=== PATIENT | male | born 1950 | race Caucasian/White ===

== ENCOUNTER → 2018-07-04 | Outpatient (CLI) | payer BC, OTHER ==
[~2018-07-04] MED LIST: ASPI-587 PO; MULT-1029 PO; OLME20TA21 PO; SIMV40TA4 PO
--- NOTE | 2018-07-04 09:35 | Diagnostic Imaging Report ---
EXAM: ABDOMEN COMPLETE ULTRASOUND. DATE: July 04, 2018. COMPARISON: None. INDICATION: 68-year-old male, right lower quadrant abdominal pain and tenderness. PROCEDURE: Two-dimensional ultrasound examination of the abdomen was performed. FINDINGS: LIVER: The liver is of normal size and echotexture without parenchymal distorting solid or cystic masses. BILE DUCTS AND GALLBLADDER: There is no pericholecystic fluid, gallbladder wall thickening or gallstones. The gallbladder wall measures 0.3 cm. The common bile duct measures 0.3 cm in diameter. SPLEEN: The spleen is normal. RIGHT KIDNEY: The right kidney is of normal size and contour with good corticomedullary differentiation. There are no shadowing calculi or cortical deforming solid or cystic masses. No hydronephrosis. The right kidney measures 11.3 cm x 4.5 cm x 5.0 cm. LEFT KIDNEY: The left kidney is of normal size and contour with good corticomedullary differentiation. There are no shadowing calculi or cortical deforming solid or cystic masses. No hydronephrosis. The left kidney measures 9.3 cm x 6.2 cm x 5.1 cm. PANCREAS: The pancreas is not well seen. The visualized portions of the aorta and inferior vena cava are not abnormally dilated. IMPRESSION: Unremarkable complete abdominal ultrasound. Dictated by: Dictated on workstation # [id number]
== END ==
LOC: RAD 07:45
PROVIDERS: ATTEND Nurse Practitioner
DX: R10.31 Right lower quadrant pain (principal); R10.819 Abdominal tenderness, unspecified site
CPT/HCPCS: 76700

== ENCOUNTER → 2018-07-28 | Outpatient (CLI) | payer OTHER ==
[~2018-07-28] MED LIST changes: +HOLD METFORMIN - RECEIVED CONTRAST 20 ML VIAL IV SCH
[2018-07-28] MEDS: IOHEXOL 350 MG/ML 100 ML (OMNIPAQUE 350) VIAL IV ONE (13:05)
--- NOTE | 2018-07-28 14:16 | Diagnostic Imaging Report ---
PROCEDURE: CT abdomen and pelvis with contrast. TECHNIQUE: Multiple contiguous axial images were obtained through the abdomen and pelvis after administration of intravenous contrast. Auto Exposure Controls were utilized during the CT exam to meet ALARA standards for radiation dose reduction. INDICATION: Lower abdominal pain. FINDINGS: The lung bases are clear. Liver appears normal. Gallbladder is present. Pancreas is normal. Spleen is not enlarged. Kidneys and adrenals are normal. There is calcific atherosclerosis of the aorta but no aneurysm. Appendix is normal. Small bowel is not dilated. There is diverticulosis of the sigmoid colon but no evidence of diverticulitis. Prostate is enlarged with some coarse calcifications. There is no intraperitoneal free air or free fluid. There is no lymphadenopathy. IMPRESSION: No acute abnormality is seen in the abdomen or pelvis. There is diverticulosis of the sigmoid colon but no evidence of diverticulitis. Dictated by: Dictated on workstation # [id number]
== END ==
LOC: RAD 12:36
PROVIDERS: ATTEND Internal Medicine
DX: K57.30 Diverticulosis of large intestine without perforation or abscess without bleeding (principal)
CPT/HCPCS: 74177

== ENCOUNTER 2018-12-03 11:29 | Emergency (ER) | payer OTHER ==
[~2018-12-03] VITALS: Ht 175.3 cm; Wt 84.8 kg
[~2018-12-03 11:29] MED LIST changes: -HOLD METFORMIN - RECEIVED CONTRAST 20 ML VIAL IV SCH
[2018-12-03] MEDS ORDERED: fentaNYL INJECTION 100 MCG/2 ML AMP IVP ONE (12:00)
[2018-12-03] MEDS ORDERED: ONDANSETRON 4 MG/2 ML (SDV) Z0FRAN IVP ONE (12:00)
--- NOTE | 2018-12-03 12:09 | ED General ---
General Chief Complaint: General Problems/Pain Stated Complaint: FEVER / ABD PAIN Nursing Triage Note: Patient reports eating some turkey yesterday and today having low grade temperature with diarrhea. Nursing Sepsis Screen: No Definite Risk Source of Information: Patient, Family Exam Limitations: No Limitations History of Present Illness Date Seen by Provider: Dec 03, 2018 Time Seen by Provider: 12:04 Initial Comments 68-year-old white male presents after eating food that had spoiled yesterday in the form of outdated turkey. Patient had cramping abdominal discomfort yesterday with associated diarrhea. The abdominal discomfort has continued throughout the night. There's been no further diarrhea nausea or vomiting. Patient has experienced a low-grade fever with this present illness. Allergies and Home Medications Allergies Uncoded Allergies: CODIENE (Allergy, Unknown, 09/23/14) SULFA (Allergy, Unknown, 09/23/14) Home Medications Aspirin 81 Mg Tablet.dr, 81 MG PO DAILY, (Reported) Benicar Hct 20 Mg Tablet, 1 EACH PO DAILY, (Reported) Mu-Vits-Min Th/Lycopene/Lutein 1 Each Tablet, 1 EACH PO DAILY, (Reported) Simvastatin 40 Mg Tablet, 40 MG PO DAILY, (Reported) Patient Home Medication List Home Medication List Reviewed: Yes Review of Systems Review of Systems Constitutional: No chills; fever, malaise, weakness EENTM: no symptoms reported Respiratory: No cough Cardiovascular: No chest pain Gastrointestinal: abdominal pain, diarrhea; No nausea, No vomiting Genitourinary: no symptoms reported Musculoskeletal: no symptoms reported Skin: no symptoms reported Psychiatric/Neurological: No Symptoms Reported Hematologic/Lymphatic: No Symptoms Reported Immunological/Allergic: no symptoms reported Past Zmhpcka-Hplrog-Curpau Hx Past Med/Social Hx: Reviewed Nursing Past Med/Soc Hx Patient Social History Alcohol Use: Occasionally Uses Recreational Drug Use: No Smoking Status: Never a Smoker Recent Foreign Travel: No Contact w/Someone Who Travel: No Recent Infectious Disease Expo: No Immunizations Up To Date Date of Influenza Vaccine: Jan 23, 2014 Past Medical History Surgeries: Yes Eye Surgery Respiratory: Yes (ASTHMA A CHILD; EASILY COPD) Cardiac: Yes High Cholesterol, Hypertension Neurological: No Genitourinary: No Gastrointestinal: No Musculoskeletal: No Endocrine: No HEENT: No Cancer: No Psychosocial: No Blood Disorders: No Physical Exam Vital Signs Vital Signs - First Documented 12/03/18 11:41 Temp 100.0 Pulse 78 Resp 18 B/P (MAP) 137/82 (100) Pulse Ox 95 Capillary Refill : Less Than 3 Seconds Height, Weight, BMI Height: 5'9.00" Weight: 187lbs. oz. 84.637386gb; BMI Method:Stated General Appearance: No Apparent Distress, WD/WN Eyes: Bilateral Eye Normal Inspection HEENT: Normal ENT Inspection Neck: Normal Inspection Respiratory: Lungs Clear Cardiovascular: Regular Rate, Rhythm, No Murmur Gastrointestinal: Normal Bowel Sounds; No Distended; Tenderness (patient has very slight diffuse abdominal tenderness but no rebound on exam) Back: Normal Inspection Extremity: Normal Inspection, Normal Range of Motion, Non Tender Neurologic/Psychiatric: Alert, Oriented x3, No Motor/Sensory Deficits, Normal Mood/Affect, valver II-XII Norm as Tested Skin: Normal Color, Warm/Dry Progress/Results/Core Measures Suspected Sepsis Recent Fever Within 48 Hours: No Infection Criteria Present: None New/Unexplained Altered Menta: No Sepsis Screen: No Definite Risk SIRS Temperature:100.0 Pulse: 78 Respiratory Rate: 18 Laboratory Tests 12/03/18 12:10: White Blood Count 7.2 Blood Pressure 137 /82 Mean: 100 Laboratory Tests 12/03/18 12:10: Creatinine 1.18, Platelet Count 190, Total Bilirubin 0.6 Results/Orders Lab Results Laboratory Tests Test 12/03/18 12:10 12/03/18 12:15 Range/Units White Blood Count 7.2 4.3-11.0 10^3/uL Red Blood Count 4.62 4.35-5.85 10^6/uL Hemoglobin 15.0 13.3-17.7 G/DL Hematocrit 44 40-54 % Mean Corpuscular Volume 96 80-99 FL Mean Corpuscular Hemoglobin 33 25-34 PG Mean Corpuscular Hemoglobin Concent 34 32-36 G/DL Red Cell Distribution Width 12.7 10.0-14.5 % Platelet Count 190 130-400 10^3/uL Mean Platelet Volume 10.1 7.4-10.4 FL Neutrophils (%) (Auto) 84 H 42-75 % Lymphocytes (%) (Auto) 7 L 12-44 % Monocytes (%) (Auto) 9 0-12 % Eosinophils (%) (Auto) 0 0-10 % Basophils (%) (Auto) 0 0-10 % Neutrophils # (Auto) 6.0 1.8-7.8 X 10^3 Lymphocytes # (Auto) 0.5 L 1.0-4.0 X 10^3 Monocytes # (Auto) 0.7 0.0-1.0 X 10^3 Eosinophils # (Auto) 0.0 0.0-0.3 10^3/uL Basophils # (Auto) 0.0 0.0-0.1 10^3/uL Sodium Level 137 135-145 MMOL/L Potassium Level 3.8 3.6-5.0 MMOL/L Chloride Level 104 98-107 MMOL/L Carbon Dioxide Level 24 21-32 MMOL/L Anion Gap 9 5-14 MMOL/L Blood Urea Nitrogen 18 7-18 MG/DL Creatinine 1.18 0.60-1.30 MG/DL Estimat Glomerular Filtration Rate > 60 BUN/Creatinine Ratio 15 Glucose Level 110 H 70-105 MG/DL Calcium Level 8.6 8.5-10.1 MG/DL Corrected Calcium 8.6 8.5-10.1 MG/DL Total Bilirubin 0.6 0.1-1.0 MG/DL Aspartate Amino Transf (AST/SGOT) 19 5-34 U/L Alanine Aminotransferase (ALT/SGPT) 29 0-55 U/L Alkaline Phosphatase 48 40-136 U/L Total Protein 6.5 6.4-8.2 GM/DL Albumin 4.0 3.2-4.5 GM/DL Lipase 15 8-78 U/L Urine Color YELLOW Urine Clarity CLEAR Urine pH 5 5-9 Urine Specific [place] 1.020 1.016-1.022 Urine Protein 1+ H NEGATIVE Urine Glucose (UA) NEGATIVE NEGATIVE Urine Ketones 1+ H NEGATIVE Urine Nitrite NEGATIVE NEGATIVE Urine Bilirubin NEGATIVE NEGATIVE Urine Urobilinogen NORMAL NORMAL MG/DL Urine Leukocyte Esterase 1+ H NEGATIVE Urine RBC (Auto) 2+ H NEGATIVE Urine RBC 2-5 H /HPF Urine WBC RARE /HPF Urine Squamous Epithelial Cells 2-5 /HPF Urine Crystals NONE /LPF Urine Bacteria TRACE /HPF Urine Casts NONE /LPF Urine Mucus SMALL H /LPF Urine Culture Indicated NO My Orders Orders - LIZBETH GONZALEZ MD Cbc With Automated Diff (12/03/18 11:56) Comprehensive Metabolic Panel (12/03/18 11:56) Ua Culture If Indicated (12/03/18 11:56) Lipase (12/03/18 11:56) Ns Iv 1000 Ml (Sodium Chloride 0.9%) (12/03/18 12:00) Ondansetron Injection (Zofran Injectio (12/03/18 12:00) Fentanyl Injection (Sublimaze Injection (12/03/18 12:00) Manual Differential (12/03/18 12:10) Medications Given in ED Current Medications Medications Dose Ordered Sig/Mohsen Route Start Time Stop Time Status Last Admin Dose Admin Fentanyl Citrate 50 mcg ONCE ONCE IVP 12/03/18 12:00 12/03/18 12:01 DC 12/03/18 12:18 50 MCG Ondansetron HCl 4 mg ONCE ONCE IVP 12/03/18 12:00 12/03/18 12:01 DC 12/03/18 12:18 4 MG Vital Signs/I&O 12/03/18 11:41 Temp 100.0 Pulse 78 Resp 18 B/P (MAP) 137/82 (100) Pulse Ox 95 Capillary Refill : Less Than 3 Seconds Blood Pressure Mean: 100 Progress Note : Time: 13:03 Progress Note Patient was rehydrated with 2 L of normal saline. His abdominal discomfort was improved with 50 g fentanyl. Patient's laboratory evaluation was essentially unremarkable. I discussed findings with the patient is white. Patient was discharged with instructions to remain on clear liquids throughout the rest of the day and tonight. I asked that he use his hydrocodone which she had at home for his abdominal discomfort. I gave the patient a prescription for Zofran for further nausea if he needed it. I asked that he follow-up with his primary care physician tomorrow if he was not essentially all recovered ECG Initial ECG Impression Date: Dec 03, 2018 Departure Impression Primary Impression: Food poisoning Qualified Codes: T62.91XA - Toxic effect of unspecified noxious substance eaten as food, accidental (unintentional), initial encounter Disposition: 01 HOME, SELF-CARE Condition: Improved Departure-Patient Inst. Decision time for Depature: 13:06 Referrals: CELINE KAPOOR MD (PCP/Family) Primary Care Physician Patient Instructions: Food Poisoning (DC) Add. Discharge Instructions: Clear liquids today and tonight. Follow Dr. Kapoor if not fully recover in the morning. Usually her hydrocodone at home for abdominal discomfort. Zofran for nausea. Return if any problems or questions. All discharge instructions revi ewed with patient and/or family. Voiced understanding. Scripts Ondansetron (Ondansetron Odt) 4 Mg Tab.rapdis 4 MG PO Q4H PRN for NAUSEA/VOMITING, #10 TAB Prov: LIZBETH GONZALEZ MD 12/03/18 LIZBETH GONZALEZ MD Dec 03, 2018 12:09
[2018-12-03] MEDS: NS IV 1000 ML 1,000 ML IV SCH ×2 (12:17→13:02)
[2018-12-03 12:26] LABS: BASOPHILS % (AUTO) 0 % (0-10); EOSINOPHILS % (AUTO) 0 % (0-10); HEMATOCRIT 44 % (40-54); LYMPHOCYTES # (AUTO) 0.5 X 10^3 (1.0-4.0); LYMPHOCYTES % (AUTO) 7 % (12-44); MEAN CORPUSCULAR HEMOGLOBIN 33 PG (25-34); MEAN CORPUSCULAR HGB CONC 34 G/DL (32-36); MEAN CORPUSCULAR VOLUME 96 FL (80-99); MEAN PLATELET VOLUME 10.1 FL (7.4-10.4); MONOCYTES # (AUTO) 0.7 X 10^3 (0.0-1.0); MONOCYTES % (AUTO) 9 % (0-12); NEUTROPHILS % (AUTO) 84 % (42-75); PLATELET COUNT 190 10^3/uL (130-400); RED CELL DISTRIBUTION WIDTH 12.7 % (10.0-14.5); WHITE BLOOD COUNT 7.2 10^3/uL (4.3-11.0)
[2018-12-03 12:26] LABS: BILIRUBIN,URINE NEGATIVE (NEGATIVE); CLARITY,URINE CLEAR; COLOR,URINE YELLOW; GLUCOSE, URINE (UA) NEGATIVE (NEGATIVE); KETONES,URINE 1+ (NEGATIVE); LEUKOCYTE ESTERASE ,URINE 1+ (NEGATIVE); NITRITE,URINE NEGATIVE (NEGATIVE); PH,URINE 5 (5-9); PROTEIN,URINE 1+ (NEGATIVE); UROBILINOGEN,URINE NORMAL (NORMAL)
[2018-12-03 12:34] LABS: BACTERIA,URINE TRACE /HPF; WBC,URINE RARE /HPF
[2018-12-03 12:46] LABS: ALANINE AMINOTRANSFERASE 29 U/L (0-55); ALKALINE PHOSPHATASE 48 U/L (40-136); BILIRUBIN,TOTAL 0.6 MG/DL (0.1-1.0); BUN/CREATININE RATIO 15; CALCIUM 8.6 MG/DL (8.5-10.1); CARBON DIOXIDE 24 MMOL/L (21-32); CHLORIDE 104 MMOL/L (98-107); CREATININE SERUM 1.18 MG/DL (0.60-1.30); GFR ESTIMATED > 60; GLUCOSE 110 MG/DL (70-105); LIPASE 15 U/L (8-78); POTASSIUM 3.8 MMOL/L (3.6-5.0); SODIUM 137 MMOL/L (135-145); TOTAL PROTEIN 6.5 GM/DL (6.4-8.2)
[2018-12-03 13:05] LABS: BAND NEUTROPHILS 20 %; LYMPHOCYTES % (MANUAL) 7 %; MONOCYTES % (MANUAL) 7 %; NEUTROPHILS % (MANUAL) 66 %
[2018-12-03 13:06] LABS: RBC MORPH NORMAL
[2018-12-03] MEDS ORDERED: ONDA4TAB11 PO (13:07)
[2018-12-03 13:37] VITALS: BP 110/84
== END 2018-12-03 13:38 | disposition home or self-care (01) ==
LOC: EDUNIT# 11:29 → ER 11:29
DX: T62.91XA Toxic effect of unspecified noxious substance eaten as food, accidental (unintentional), initial encounter (principal); J44.9 Chronic obstructive pulmonary disease, unspecified; I10 Essential (primary) hypertension; E78.00 Pure hypercholesterolemia, unspecified; Z88.5 Allergy status to narcotic agent; Z88.2 Allergy status to sulfonamides; Z79.82 Long term (current) use of aspirin
CPT/HCPCS: 36415; 80053; 81000; 83690; 85007; 85027; 96361; 96374; 96375

== ENCOUNTER 2019-09-18 05:39 | Outpatient (RCR) | payer BC, OTHER ==
[~2019-09-18] VITALS: Ht 175 cm; Wt 86.3 kg
[~2019-09-18 05:39] MED LIST changes: +ASPI-586 PO; +IRBE150T23 PO; +MULT-1136 PO; +OMEG-109 PO; +ONDA4TAB11 PO; +SIMV40TA25 PO
== END 2019-09-18 15:38 | disposition home or self-care (01) ==
LOC: PREOP 05:39
PROVIDERS: ATTEND Internal Medicine
DX: Z01.818 Encounter for other preprocedural examination (principal)
CPT/HCPCS: 87635

== ENCOUNTER 2019-09-21 08:53 | Day surgery (SDC) | payer BC, OTHER ==
--- NOTE | 2019-09-07 07:54 | HISTORY AND PHYSICAL ---
DATE OF SERVICE: COLONOSCOPY HISTORY AND PHYSICAL DATE OF ADMISSION: HISTORY OF PRESENT ILLNESS: The patient is a 69-year-old white male referred by Dr. Kapoor for screening colonoscopy. He last underwent colonoscopy 5 years ago at which time no evidence for neoplasia was identified, but did have some evidence for mild diverticular disease confined to the sigmoid colon done by Dr. Mathew. He is deemed to be a higher than average risk as his brother had a fair number of polyps removed on his first colonoscopy at the age of 50. He is not aware of any family history for colon cancer. He denies any bowel habit changes, no melena or bright red blood per rectum. He denies diarrhea, constipation or change in weight. PAST MEDICAL HISTORY: Significant for hypertension, hyperlipidemia with no known history of coronary artery disease. 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 He has no past smoking history. FAMILY HISTORY: Mother of complications of end stage chronic renal disease and was morbidly obese at the age of 79. Father of complications of COPD and was a heavy smoker at the age of 79 as well. PAST SURGICAL HISTORY: Noncontributory. REVIEW OF SYSTEMS: CONSTITUTIONAL: Denies night sweats, chills, fever or change in weight. GASTROINTESTINAL: As noted in the HPI. CARDIOVASCULAR: He denies chest pain, orthopnea, PND or pedal edema. He has no history of syncope. PULMONARY: He reports stable dyspnea on exertion with no cough or wheezing. PHYSICAL EXAMINATION: GENERAL: Reveals a well-appearing white male in no acute distress. VITAL SIGNS: Blood pressure 110/80, weight 199.6 pounds. HEENT: Oral cavity reveals Mallampati 2 pharyngeal configuration. No erythema or exudate noted. CHEST: Clear to auscultation. CARDIOVASCULAR: Reveals regular rate and rhythm without murmur, S3 or S4. ABDOMEN: Soft, supple without mass, organomegaly or tenderness. No bruits noted. No evidence for abdominal aortic aneurysm to palpation is noted. EXTREMITIES: Reveal no cyanosis, clubbing or edema. ASSESSMENT AND PLAN: The patient is set up for screening colonoscopy on 09/20. Prep instructions and Suprep kit were given and questions were answered. I thank you for the referral of this pleasant gentleman. Job ID: [id number] DocumentID: [id number] Dictated Date: 08/30/2019 17:30:41 [employer] Date: 08/30/2019 18:41:49 Dictated By: LIZBETH JAUREGUI MD
[~2019-09-21] VITALS: Ht 175 cm; Wt 86.3 kg
[2019-09-21] VITALS (8 sets, daily range): BP systolic 129–173; BP diastolic 73–92
--- NOTE | 2019-09-21 08:52 | Pre-Op Note & Conscious Sedat ---
Pre-Operative Progress Note H&P Reviewed The H&P was reviewed, patient examined and no changes noted. Date H&P Reviewed: Sep 21, 2019 Time H&P Reviewed: 08:51 Conscious Sedation Pre-Proced ASA Score 2 For ASA 3 and 4: Consider anesthesia and medical clearance. Also, for patients with a history of failed moderate sedation consider anesthesia. Airway Lungs Heart ASA score ASA 1: a normal healthy patient ASA 2: a patient with a mild systemic disease (mid diabetes, controlled hypertension, obesity ASA 3: a patient with a severe systemic disease that limits activity (angina, COPD, prior Myocardial infarction) ASA 4: a patient with an incapacitating disease that is a constant threat to life (CHF, renal failure) ASA 5: a moribund patient not expected to survive 24 hrs. (ruptured aneurysm) ASA 6: a declared brain- patient whose organs are being harvested. For emergent operations, add the letter E after the classification Mallampati Classification Grade 2 Sedation Plan Analgesia, Amnesia, Plan communicated to team members, Discussed options with patient/fam, Discussed risks with patient/fam The patient is an appropriate candidate to undergo the planned procedure, sedation, and anesthesia. The patient immediately re-assessed prior to indication. LIZBETH JAUREGUI MD Sep 21, 2019 08:52
[2019-09-21] MEDS ORDERED: D5 LR IV SOLUTION 1,000 ML IV ONE (08:59)
[2019-09-21] MEDS ORDERED: D5 LR IV SOLUTION 1,000 ML IV STA (09:12)
[2019-09-21] MEDS ORDERED: LIDOCAINE JELLY 2% 6 ML SYRINGE MM PRN (09:15)
[2019-09-21] MEDS ORDERED: fentaNYL INJECTION 100 MCG/2 ML AMP IVP ONE (09:15)
[2019-09-21] MEDS ORDERED: fentaNYL INJECTION 100 MCG/2 ML AMP ONE (10:24)
[2019-09-21] MEDS ORDERED: MIDAZOLAM 5 MG/5 ML (VERSED) VIAL ONE (10:24)
[2019-09-21] MEDS ORDERED: LIDOCAINE JELLY 2% 6 ML SYRINGE ONE (10:24)
[2019-09-21] MEDS: MIDAZOLAM 5 MG/5 ML (VERSED) VIAL IV PRN ×2 (10:26→10:31)
--- NOTE | 2019-09-21 19:40 | OPERATIVE REPORT ---
DATE OF SERVICE: COLONOSCOPY SUMMARY INDICATION FOR THE PROCEDURE: Screening colonoscopy, past history of polyps. DESCRIPTION OF PROCEDURE: The patient was placed in the left lateral decubitus position. Prior to doing colonoscopy, digital rectal evaluation was performed. Prostate was unremarkable to digital inspection. No abnormalities were noted in regards to anal canal or distal rectal vault to digital inspection. Anal sphincter tone was normal. Perianal reflexes intact. The colonoscope was then inserted into the rectum under direct visualization advanced to cecum. The cecum was identified by identification of ileocecal valve and cecal strap. Photographic documentation was obtained. Careful inspection was made as colonoscope withdrawn. The patient tolerated the procedure well. FINDINGS: There was no evidence for internal or external hemorrhoids and the rectum was unremarkable. The present throughout the sigmoid colon was a moderate number of small to medium size diverticulum with haustral hypertrophy. No evidence for diverticulitis was noted. No other sigmoid colonic abnormalities were appreciated. The descending colon, splenic flexure, transverse colon, hepatic flexure, ascending colon and cecum were unremarkable. ASSESSMENT: Moderate diverticular disease confined to the sigmoid colon was present without evidence for diverticulitis. This was an otherwise unremarkable colonoscopy to the cecum as well as digital evaluation of the prostate. I thank you for the referral of this pleasant gentleman. We will advocate consideration for repeat surveillance colonoscopy in 5 years. Job ID: [id number] DocumentID: [id number] Dictated Date: 09/21/2019 11:41:28 Back Stayer Date: 09/21/2019 19:38:47 Dictated By: LIZBETH JAUREGUI MD
== END 2019-09-21 11:20 | disposition home or self-care (01) ==
LOC: ENDO 08:53
PROVIDERS: ATTEND Internal Medicine
DX: Z12.11 Encounter for screening for malignant neoplasm of colon (principal); K57.30 Diverticulosis of large intestine without perforation or abscess without bleeding; K63.89 Other specified diseases of intestine; I10 Essential (primary) hypertension; E78.5 Hyperlipidemia, unspecified; J44.9 Chronic obstructive pulmonary disease, unspecified; Z79.899 Other long term (current) drug therapy; Z79.82 Long term (current) use of aspirin; Z88.2 Allergy status to sulfonamides; Z88.5 Allergy status to narcotic agent; Z86.010 Personal history of colon polyps; Z84.1 Family history of disorders of kidney and ureter; Z83.71 Family history of colonic polyps

== ENCOUNTER 2020-09-16 07:56 | Observation (INO) | payer BC ==
[~2020-09-16] VITALS: Ht 177 cm; Wt 87.0 kg
[2020-09-16] VITALS (8 sets, daily range): BP systolic 113–135; BP diastolic 72–88
[2020-09-16] MEDS ORDERED: ASPIRIN 81 MG CHEW (CHILDREN'S ASA) PO ONE (08:15)
[2020-09-16] MEDS ORDERED: ENOXAPARIN 100 MG/1 ML (LOVENOX) SYR SC ONE (08:15)
--- NOTE | 2020-09-16 08:22 | ED Cardiac General ---
History of Present Illness General Chief Complaint: Chest Pain Stated Complaint: CHEST TIGHTNESS,SOB Source: patient Exam Limitations: no limitations History of Present Illness Date Seen by Provider: Sep 16, 2020 Time Seen by Provider: 08:00 Initial Comments Patient presents ER by private conveyance from home with chief complaint that this morning about an hour prior to arrival he started having some shortness of breath got worse as he tried to recline with some pressure between his shoulder blades. He has no history of heart disease. He is not having chest pain. He says he had already gotten up and walked a mile with his dog eaten breakfast and had no problems at that time. Nothing made his shortness of breath better. He does not have a history of lung disease. Is not a smoker. He does have hypertension hyperlipidemia but no diabetes. He has a strong history of atrial fibrillation and heart disease in his family and was worked up at one time for an irregular heart rate but the monitor failed to capture atrial fibrillation. He is not on blood thinners. ASA po DIRECTOR TRANSLATIONAL: Yes (81MG) Allergies and Home Medications Allergies Coded Allergies: codeine (Verified Allergy, Mild, ITCHING, 09/13/19) Sulfa (Sulfonamide Antibiotics) (Verified Allergy, Unknown, FROM CHILDHOOD, 09/13/19) Home Medications Irbesartan 150 Mg Tablet, 150 MG PO DAILY, (Reported) Multivitamin 1 Each Tablet, 1 EACH PO DAILY, (Reported) [place]-3 Fatty Acids/Fish Oil 1 Each Capsule, 1 EACH PO DAILY, (Reported) Simvastatin 40 Mg Tablet, 40 MG PO DAILY, (Reported) Patient Home Medication List Home Medication List Reviewed: Yes Review of Systems Review of Systems Constitutional: No chills, No diaphoresis EENTM: No Blurred Vision, No Double Vision Respiratory: Denies Cough; Shortness of Air, SOA With Exertion, SOA at Rest Cardiovascular: Denies Chest Pain, Denies Edema; Irregular Heart Rate; Denies Lightheadedness, Denies Palpitations, Denies Syncope Gastrointestinal: Denies Constipated, Denies Diarrhea, Denies Nausea Genitourinary: Denies Burning, Denies Discharge Musculoskeletal: No back pain, No joint pain All Other Systems Reviewed Negative Unless Noted: Yes Past Lbhgaun-Zmevjs-Hhvjvj Hx Patient Social History Alcohol Use: Occasionally Uses Alcohol Beverage of Choice: Beer Drug of Choice: Denies Smoking Status: Never a Smoker 2nd Hand Smoke Exposure: No Recent Hopitalizations: No Immunizations Up To Date Date of Pneumonia Vaccine: Jan 01, 2019 Date of Influenza Vaccine: Jan 01, 2019 Seasonal Allergies Seasonal Allergies: Yes (MILD) Past Medical History Surgeries: Yes Eye Surgery Respiratory: Yes (ASTHMA A CHILD) COPD Cardiac: Yes High Cholesterol, Hypertension Neurological: No Sexually Transmitted Disease: No HIV/AIDS: No Genitourinary: No Gastrointestinal: No Musculoskeletal: No Endocrine: No HEENT: No (CONTACTS) Loss of Vision: Denies Hearing Impairment: Denies Cancer: No Psychosocial: No Integumentary: No Blood Disorders: No Adverse Reaction/Blood Tranf: No (N/A) Physical Exam Vital Signs Vital Signs - First Documented 09/16/20 08:00 Temp 36.3 Pulse 120 Resp 18 B/P (MAP) 161/103 (122) Pulse Ox 98 O2 Delivery Room Air Capillary Refill : Less Than 3 Seconds Height, Weight, BMI Height: 5'9.00" Weight: 187lbs. oz. 84.683958em; 28.17 BMI Method:Stated General Appearance: WD/WN, Anxious, Mild Distress HEENT: PERRL/EOMI, Pharynx Normal, Moist Mucous Membranes Neck: Full Range of Motion, Normal Inspection Respiratory: Lungs Clear, Normal Breath Sounds, No Accessory Muscle Use, No Respiratory Distress Cardiovascular: No Edema, Normal Peripheral Pulses, Irregularly Irregular, Tachycardia Gastrointestinal: Normal Bowel Sounds, Non Tender, Soft Neurologic/Psychiatric: Alert, Oriented x3, Other (Anxious affect) Skin: Normal Color, Warm/Dry Progress/Results/Core Measures Results/Orders Lab Results Laboratory Tests Test 09/16/20 08:13 Range/Units White Blood Count 9.1 4.3-11.0 10^3/uL Red Blood Count 5.06 4.30-5.52 10^6/uL Hemoglobin 16.5 13.3-17.7 g/dL Hematocrit 49 40-54 % Mean Corpuscular Volume 97 80-99 fL Mean Corpuscular Hemoglobin 33 25-34 pg Mean Corpuscular Hemoglobin Concent 34 32-36 g/dL Red Cell Distribution Width 12.5 10.0-14.5 % Platelet Count 223 130-400 10^3/uL Mean Platelet Volume 10.2 9.0-12.2 fL Immature Granulocyte % (Auto) 1 % Neutrophils (%) (Auto) 42 42-75 % Lymphocytes (%) (Auto) 45 H 12-44 % Monocytes (%) (Auto) 9 0-12 % Eosinophils (%) (Auto) 3 0-10 % Basophils (%) (Auto) 0 0-10 % Neutrophils # (Auto) 3.8 1.8-7.8 10^3/uL Lymphocytes # (Auto) 4.1 H 1.0-4.0 10^3/uL Monocytes # (Auto) 0.8 0.0-1.0 10^3/uL Eosinophils # (Auto) 0.2 0.0-0.3 10^3/uL Basophils # (Auto) 0.0 0.0-0.1 10^3/uL Immature Granulocyte # (Auto) 0.1 0.0-0.1 10^3/uL Prothrombin Time 13.4 12.2-14.7 SEC INR Comment 1.0 0.8-1.4 Activated Partial Thromboplast Time 29 24-35 SEC D-Dimer < 0.27 0.00-0.49 UG/ML Sodium Level 142 135-145 MMOL/L Potassium Level 3.7 3.6-5.0 MMOL/L Chloride Level 104 98-107 MMOL/L Carbon Dioxide Level 25 21-32 MMOL/L Anion Gap 13 5-14 MMOL/L Blood Urea Nitrogen 18 7-18 MG/DL Creatinine 1.34 H 0.60-1.30 MG/DL Estimat Glomerular Filtration Rate 53 BUN/Creatinine Ratio 13 Glucose Level 126 H 70-105 MG/DL Calcium Level 9.1 8.5-10.1 MG/DL Corrected Calcium 8.5-10.1 MG/DL Magnesium Level 1.9 1.6-2.4 MG/DL Total Bilirubin 0.8 0.1-1.0 MG/DL Aspartate Amino Transf (AST/SGOT) 31 5-34 U/L Alanine Aminotransferase (ALT/SGPT) 47 0-55 U/L Alkaline Phosphatase 45 40-136 U/L Myoglobin 76.6 10.0-92.0 NG/ML Troponin I < 0.028 <0.028 NG/ML B-Type Natriuretic Peptide 26.0 <100.0 PG/ML Total Protein 7.7 6.4-8.2 GM/DL Albumin 4.7 H 3.2-4.5 GM/DL Lipase 62 8-78 U/L My Orders Orders - PEARLLAURA J Continuous Ekg Monitoring (09/16/20 08:01) Ekg Tracing (09/16/20 08:01) Cbc With Automated Diff (09/16/20 08:13) Magnesium (09/16/20 08:13) Chest 1 View, Ap/Pa Only (09/16/20 08:13) Comprehensive Metabolic Panel (09/16/20 08:13) Myoglobin Serum (09/16/20 08:13) Protime With Inr (09/16/20 08:13) Partial Thromboplastin Time (09/16/20 08:13) O2 (09/16/20 08:13) Lipid Panel (09/17/20 06:00) Ed Iv/Invasive Line Start (09/16/20 08:13) Lipase (09/16/20 08:13) BNP (09/16/20 08:13) Fibrin Degradation Products (09/16/20 08:13) Aspirin Chewable Tablet (Baby Aspirin Ch (09/16/20 08:15) Enoxaparin Injection (Lovenox Injection) (09/16/20 08:15) Diltiazem Injection (Cardizem Injection) (09/16/20 08:15) Diltiazem Drip Pre-Mix (Cardizem Drip Pr (09/16/20 08:30) Diltiazem Injection (Cardizem Injection) (09/16/20 08:30) Troponin I (09/16/20 08:13) Medications Given in ED Current Medications Medications Dose Ordered Sig/Mohsen Route Start Time Stop Time Status Last Admin Dose Admin Aspirin 324 mg ONCE ONCE PO 09/16/20 08:15 09/16/20 08:18 DC 09/16/20 08:30 324 MG Diltiazem HCl 10 mg ONCE ONCE IVP 09/16/20 08:30 09/16/20 08:31 DC 09/16/20 08:30 10 MG Enoxaparin Sodium 90 mg ONCE ONCE SC 09/16/20 08:15 09/16/20 08:18 DC 09/16/20 08:30 90 MG Vital Signs/I&O 09/16/20 09/16/20 08:00 08:00 Temp 36.3 Pulse 120 Resp 18 B/P (MAP) 161/103 (122) Pulse Ox 98 O2 Delivery Room Air Progress Progress Note : Time: 08:20 Progress Note Patient presents in atrial fibrillation with rapid ventricular response symptomatic with shortness of air. We we will give a dose of aspirin however is not having any chest pain. The dose of Cardizem 20 mg since his blood pressure significantly elevated 160/[address] Garrison is in the ER visiting with the patient at this time. Initial ECG Impression Date: Sep 16, 2020 Initial ECG Impression Time: 08:05 Initial ECG Rate: 111 Initial ECG Rhythm: A Fib/Flutter Initial ECG Intervals: QT (447) Initial ECG Impression: Atrial Fibrillation w/RVR Comment Atrial fibrillation with rapid ventricular response. No relevant ST changes Diagnostic Imaging Diagonstic Imaging: Xray Plain Films/CT/US/NM/MRI: chest Comments NAME: BETH GARCIA MED REC#: [id number] PT STATUS: ADM Karlie : 1950 PHYSICIAN: LAURA KANG MD ADMIT DATE: 09/16/20/ICU Draft Date of Exam:09/16/20 CHEST 1 VIEW, AP/PA ONLY INDICATION: Chest pressure and shortness of breath. COMPARISON: Chest radiograph of 11/19/2013. FINDINGS: The heart size is stable and within normal limits. The cardiomediastinal and hilar contours are unchanged. No failure pattern, pneumonia, effusion, or pneumothorax. No free air beneath the diaphragms. IMPRESSION: Stable chest. Dictated on workstation # [id number] Dict: 09/16/20 0855 Trans: 09/16/20 0857 [id number] Interpreted by: RUDDY MOSQUERA Electronically signed by: Reviewed: Reviewed by Me Departure Communication (Admissions) Time/Spoke to Admitting Phy: 08:33 Discussed the case with Dr. Mcnulty who agrees to observe with cardiac consultation. Time/Spoke to Consulting Phy: 08:10 Dr. Garrison to the ER and visit with the patient and recommends Lovenox, Cardizem 10 mg and a Cardizem drip to be started at 10 mg. Impression Primary Impression: Paroxysmal atrial fibrillation with rapid ventricular response Disposition: ADMITTED INPATIENT Condition: Stable Admissions Decision to Admit Reason: Admit from ER (General) Decision to Admit/Date: Sep 16, 2020 Time/Decision to Admit Time: 08:15 Departure-Patient Inst. Referrals: CELINE GAMBOA MD (PCP/Family) Primary Care Physician LAURA KANG Sep 16, 2020 08:22
[2020-09-16 08:29] LABS: BASOPHILS % (AUTO) 0 % (0-10); EOSINOPHILS # (AUTO) 0.2 10^3/uL (0.0-0.3); EOSINOPHILS % (AUTO) 3 % (0-10); HEMATOCRIT 49 % (40-54); HEMOGLOBIN 16.5 g/dL (13.3-17.7); LYMPHOCYTES # (AUTO) 4.1 10^3/uL (1.0-4.0); LYMPHOCYTES % (AUTO) 45 % (12-44); MEAN CORPUSCULAR HEMOGLOBIN 33 pg (25-34); MEAN CORPUSCULAR HGB CONC 34 g/dL (32-36); MEAN CORPUSCULAR VOLUME 97 fL (80-99); MEAN PLATELET VOLUME 10.2 fL (9.0-12.2); MONOCYTES # (AUTO) 0.8 10^3/uL (0.0-1.0); MONOCYTES % (AUTO) 9 % (0-12); NEUTROPHILS # (AUTO) 3.8 10^3/uL (1.8-7.8); NEUTROPHILS % (AUTO) 42 % (42-75); PLATELET COUNT 223 10^3/uL (130-400); WHITE BLOOD COUNT 9.1 10^3/uL (4.3-11.0)
[2020-09-16] MEDS ORDERED: dilTIAZem DRIP PRE-MIX 125 ML IV SCH (08:30)
[2020-09-16 08:34] LABS: ALBUMIN 4.7 GM/DL (3.2-4.5); CHLORIDE 104 MMOL/L (98-107); POTASSIUM 3.7 MMOL/L (3.6-5.0); SODIUM 142 MMOL/L (135-145)
[2020-09-16 08:35] LABS: CALCIUM 9.1 MG/DL (8.5-10.1); PROTHROMBIN TIME PATIENT 13.4 SEC (12.2-14.7)
[2020-09-16 08:36] LABS: GLUCOSE 126 MG/DL (70-105)
[2020-09-16 08:37] LABS: TOTAL PROTEIN 7.7 GM/DL (6.4-8.2)
[2020-09-16 08:38] LABS: BILIRUBIN,TOTAL 0.8 MG/DL (0.1-1.0); CARBON DIOXIDE 25 MMOL/L (21-32)
--- NOTE | 2020-09-16 08:39 | Consultation-Cardiology ---
HPI-Cardiology Cardiology Consultation Date of Consultation 09/16/20 Date of Admission Time Seen by Provider: 08:36 Indication: Atrial fibrillation HPI 70 years old gentleman with a history of hypertension, hyperlipidemia, hypothyroid history of atrial fibrillation. Was in his usual state of health until this morning when he said he started to having back pain and shortness of breath up from sitting upright. Denied any chest pain. No syncope or near syncopal episode, came into the emergency room and noted to be in atrial fibrillation with rapid ventricular response. Per my evaluation he was laying down in bed, feeling better, no active pain. No discomfort, no previous cardiac history. Reported in the remote past having irregular heart rhythm, reported that he had a Holter monitor in the remote past and did not show any significant arrhythmia Home Medications & Allergies Allergies: Coded Allergies: codeine (Verified Allergy, Mild, ITCHING, 09/13/19) Sulfa (Sulfonamide Antibiotics) (Verified Allergy, Unknown, FROM CHILDHOOD, 09/13/19) Home Medication List Reviewed: Yes KPF-Puemfb-Isynlq Hx Patient Social History Employed/Student: employed Recreational Drug Use: No Drug of Choice: Denies Smoking Status: Never a Smoker 2nd Hand Smoke Exposure: No Recent Hopitalizations: No Immunizations Up To Date Date of Pneumonia Vaccine: Jan 01, 2019 Date of Influenza Vaccine: Jan 01, 2019 Past Medical History Discussed below Family Medical History Family Medical Hx Noncontributory Review of Systems-General Review of Systems Constitutional: see HPI; No chills, No diaphoresis EENTM: see HPI, no symptoms reported Respiratory: see HPI; No cough, No dyspnea on exertion, No hemoptysis, No orthopnea, No phlegm, No short of breath, No stridor, No wheezing, No other Cardiovascular: see HPI, chest pain; No edema, No Hx of Intervention, No palp itations, No syncope, No vascular heart diseas, No other Gastrointestinal: no symptoms reported, see HPI Genitourinary: no symptoms reported, see HPI Musculoskeletal: see HPI; No back pain, No joint pain Skin: no symptoms reported, see HPI Psychiatric/Neurological: No Symptoms Reported, See HPI All Other Systems Reviewed Negative Unless Noted: Yes Reviewed Test Results Reviewed Test Results Lab Laboratory Tests Test 09/16/20 08:13 Range/Units White Blood Count 9.1 4.3-11.0 10^3/uL Red Blood Count 5.06 4.30-5.52 10^6/uL Hemoglobin 16.5 13.3-17.7 g/dL Hematocrit 49 40-54 % Mean Corpuscular Volume 97 80-99 fL Mean Corpuscular Hemoglobin 33 25-34 pg Mean Corpuscular Hemoglobin Concent 34 32-36 g/dL Red Cell Distribution Width 12.5 10.0-14.5 % Platelet Count 223 130-400 10^3/uL Mean Platelet Volume 10.2 9.0-12.2 fL Immature Granulocyte % (Auto) 1 % Neutrophils (%) (Auto) 42 42-75 % Lymphocytes (%) (Auto) 45 H 12-44 % Monocytes (%) (Auto) 9 0-12 % Eosinophils (%) (Auto) 3 0-10 % Basophils (%) (Auto) 0 0-10 % Neutrophils # (Auto) 3.8 1.8-7.8 10^3/uL Lymphocytes # (Auto) 4.1 H 1.0-4.0 10^3/uL Monocytes # (Auto) 0.8 0.0-1.0 10^3/uL Eosinophils # (Auto) 0.2 0.0-0.3 10^3/uL Basophils # (Auto) 0.0 0.0-0.1 10^3/uL Immature Granulocyte # (Auto) 0.1 0.0-0.1 10^3/uL Sodium Level 142 135-145 MMOL/L Potassium Level 3.7 3.6-5.0 MMOL/L Chloride Level 104 98-107 MMOL/L Glucose Level 126 H 70-105 MG/DL Calcium Level 9.1 8.5-10.1 MG/DL Corrected Calcium 8.5-10.1 MG/DL Total Protein 7.7 6.4-8.2 GM/DL Albumin 4.7 H 3.2-4.5 GM/DL Physical Exam Physical Exam Vital Signs Vital Signs - First Documented 09/16/20 08:00 Temp 36.3 Pulse 120 Resp 18 B/P (MAP) 161/103 (122) Pulse Ox 98 O2 Delivery Room Air Capillary Refill : Less Than 3 Seconds Height, Weight, BMI Height: 5'9.00" Weight: 187lbs. oz. 84.151890qf; 27.00 BMI Method:Stated General Appearance: WD/WN, Anxious, Mild Distress Eyes: Bilateral Eye Normal Inspection, Bilateral Eye PERRL, Bilateral Eye EOMI HEENT: PERRL/EOMI, Pharynx Normal, Moist Mucous Membranes Neck: Full Range of Motion, Normal Inspection Respiratory: Lungs Clear, Normal Breath Sounds, No Accessory Muscle Use, No Respiratory Distress Cardiovascular: No Edema, Normal Peripheral Pulses, Irregularly Irregular, Tachycardia Gastrointestinal: Normal Bowel Sounds, Non Tender, Soft Back: Normal Inspection, No CVA Tenderness, No Vertebral Tenderness Extremity: Normal Capillary Refill, Normal Inspection, Normal Range of Motion, Non Tender, No Calf Tenderness, No Pedal Edema Neurologic/Psychiatric: Alert, Oriented x3, Other (Anxious affect) Skin: Normal Color, Warm/Dry Lymphatic: No Adenopathy A/P-Cardiology Admission Diagnosis Atrial fibrillation Tachycardia Chest pain Hypertension Assessment/Plan Atrial fibrillation with rapid ventricular response, starting Cardizem drip and Lovenox, monitor heart rate and blood pressure, started on aspirin, evaluate 2D echo. N.p.o. after midnight and will consider ROMANA and cardioversion if he did not convert spontaneously. Atypical chest pain, having back pain, could be secondary to the persistent tachycardia, continue to monitor for now, monitor cardiac enzymes, started on aspirin and Lovenox Hypertension, was on irbesartan as an outpatient, starting on diltiazem and monitor blood pressure Hyperlipidemia maintained on simvastatin, monitor lipids Family history of atrial fibrillation and flutter, brother had ablation Clinical Quality Measures AMI/AHF: ASA po Prior to arrival: Yes (81MG) ANMOL LIU MD Sep 16, 2020 08:39
[2020-09-16 08:40] LABS: ALKALINE PHOSPHATASE 45 U/L (40-136); CREATININE SERUM 1.34 MG/DL (0.60-1.30); GFR ESTIMATED 53
[2020-09-16 08:41] LABS: BUN/CREATININE RATIO 13
[2020-09-16 08:43] LABS: ALANINE AMINOTRANSFERASE 47 U/L (0-55); MAGNESIUM 1.9 MG/DL (1.6-2.4)
[2020-09-16 08:44] LABS: LIPASE 62 U/L (8-78)
--- NOTE | 2020-09-16 08:58 | Diagnostic Imaging Report ---
INDICATION: Chest pressure and shortness of breath. COMPARISON: Chest radiograph of 11/19/2013. FINDINGS: The heart size is stable and within normal limits. The cardiomediastinal and hilar contours are unchanged. No failure pattern, pneumonia, effusion, or pneumothorax. No free air beneath the diaphragms. IMPRESSION: Stable chest. Dictated by: Dictated on workstation # [id number]
[2020-09-16] MEDS: dilTIAZem DRIP PRE-MIX 125 ML IV SCH (10:15)
[2020-09-16] MEDS ORDERED: CATHETER FLUSH 10 ML SYR IV PRN (10:15)
[2020-09-16] MEDS ORDERED: ASPI-1238 PO (13:26)
[2020-09-16] MEDS ORDERED: UBID100C17 PO (13:26)
[2020-09-16] MEDS ORDERED: L.AC1CAP6 PO (13:26)
--- NOTE | 2020-09-16 18:37 | History & Physical-Hospitalist ---
History of Present Illness Date Seen 09/16/20 Attending Physician Randell Patel MD PCP Viktor Kapoor MD Referring Physician Date of Admission Sep 16, 2020 at 08:30 Home Medications & Allergies Home Medications Reviewed patient Home Medication Reconciliation performed by pharmacy medication reconciliations mapping technician and/or nursing. Patients Allergies have been reviewed. Allergies Allergies Coded Allergies codeine (Verified Allergy, Mild, ITCHING, 09/13/19) Sulfa (Sulfonamide Antibiotics) (Verified Allergy, Unknown, FROM CHILDHOOD, 09/13/19) Past Dhmhsou-Elwdcz-Ngqybo Hx Patient Social History Employed/Student: employed Tobacco Use?: No Smoking Status: Never a Smoker Substance use?: No Alcohol Use?: Yes Alcohol type: Beer Alcohol Frequency: Couple times a week Pt feels they are or have been: No Immunizations Up To Date Date of Influenza Vaccine: Jan 01, 2019 First/Initial COVID19 Vaccinat: [place] HAD BOTH VACCINES Second COVID19 Vaccination Ludwig: [place] HAD BOTH VACCINES Date of Pneumonia Vaccine: Jan 01, 2019 Seasonal Allergies Seasonal Allergies: Yes (MILD) Current Status Advance Directives: Yes Advance Directive Location: Home Communicates: Verbally Primary Language: Belarusian Preferred Spoken Language: Belarusian Is interpretation needed?: No Past Medical History Surgeries: Eye Surgery COPD High Cholesterol, Hypertension Sexually Transmitted Disease: No HIV/AIDS: No Loss of Vision: Denies Hearing Impairment: Denies Blood Disorders: No Adverse Reaction/Blood Tranf: No (N/A) Physical Exam Physical Exam Vital Signs Vital Signs - First Documented 09/16/20 08:00 Temp 36.3 Pulse 120 Resp 18 B/P (MAP) 161/103 (122) Pulse Ox 98 O2 Delivery Room Air Capillary Refill : Less Than 3 Seconds Height, Weight, BMI Height: 5'9.00" Weight: 187lbs. oz. 84.850300uq; 27.76 BMI Method:Stated Results Results/Procedures Labs Laboratory Tests 09/16/20 08:13 Patient resulted labs reviewed. Clinical Quality Measures AMI/AHF: ASA po Prior to arrival: Yes (81MG) RANDELL PATEL MD Sep 16, 2020 18:37
[2020-09-16] MEDS: APIXABAN 5 MG (ELIQUIS) TABLET PO SCH (20:18)
[2020-09-16] MEDS ORDERED: SIMvastatin 40 MG (ZOCOR) TAB PO SCH (21:00)
[2020-09-17] VITALS (8 sets, daily range): BP systolic 111–154; BP diastolic 66–83
[2020-09-17 03:39] LABS: HEMATOCRIT 46 % (40-54); HEMOGLOBIN 15.8 g/dL (13.3-17.7); MEAN CORPUSCULAR HEMOGLOBIN 33 pg (25-34); MEAN CORPUSCULAR HGB CONC 34 g/dL (32-36); MEAN CORPUSCULAR VOLUME 95 fL (80-99); MEAN PLATELET VOLUME 10.2 fL (9.0-12.2); PLATELET COUNT 209 10^3/uL (130-400)
[2020-09-17 04:03] LABS: ALANINE AMINOTRANSFERASE 39 U/L (0-55); ALKALINE PHOSPHATASE 36 U/L (40-136); BILIRUBIN,TOTAL 0.5 MG/DL (0.1-1.0); BUN/CREATININE RATIO 18; CALCIUM 8.8 MG/DL (8.5-10.1); CARBON DIOXIDE 24 MMOL/L (21-32); CHLORIDE 105 MMOL/L (98-107); CHOLESTEROL 181 MG/DL (< 200); CREATININE SERUM 1.05 MG/DL (0.60-1.30); GFR ESTIMATED > 60; GLUCOSE 112 MG/DL (70-105); HDL CHOLESTEROL 42 MG/DL (40-60); SODIUM 139 MMOL/L (135-145); TOTAL PROTEIN 6.6 GM/DL (6.4-8.2); TRIGLYCERIDES 220 MG/DL (<150); VLDL CHOLESTEROL 44 MG/DL (5-40)
--- NOTE | 2020-09-17 08:00 | Cardiology Progress Note ---
Subjective Date Seen by Provider: Sep 17, 2020 Time Seen by Provider: 07:58 Subjective/Events-last exam Patient was seen at bedside, laying down comfortably, denied any chest pain, still in atrial fibrillation Review of Systems General: No Chills, No Night Sweats, No Fatigue, No Malaise, No Appetite, No Other HEENT: No Head Aches, No Visual Changes, No Eye Pain, No Ear Pain, No Dysphasia, No Sinus Congestion, No Post Nasal Drip, No Sore Throat, No Other Pulmonary: No Dyspnea, No Cough, No Pleuritic Chest Pain, No Other Cardiovascular: Palpitations; No: Chest Pain, Orthopnea, Paroxysmal Noc. Dyspnea, Edema, Lt Headedness, Other Objective-Cardiology Exam Last Set of Vital Signs Vital Signs 09/16/20 09/17/20 09/17/20 10:00 06:00 07:45 Temp 35.1 Pulse 76 Resp 25 B/P (MAP) 154/71 (91) Pulse Ox 94 O2 Delivery Room Air Capillary Refill : Less Than 3 Seconds I&O Intake and Output 09/17/20 00:00 Intake Total 850 ml Output Total 700 ml Balance 150 ml Intake Oral 850 ml Output Urine Total 700 ml # Voids 2 # Bowel Movements 1 Daily Weight Change No General: Alert, Oriented X3, Cooperative HEENT: Atraumatic, PERRLA Neck: Supple, No JVD, No Thyromegaly Lungs: Clear to Auscultation, Normal Air Movement Heart: Normal S1, Normal S2, No Murmurs, Other (Atrial fibrillation) Abdomen: Normal Bowel Sounds, Soft, No Tenderness, No Hepatosplenomegaly, No Masses Extremities: No Clubbing, No Cyanosis, No Edema, Normal Pulses, No Tenderness/Swelling Skin: No Rashes, No Breakdown, No Significant Lesion Neuro: Normal Gait, Normal Speech, Strength at 5/5 X4 Ext, Normal Tone, Sensation Intact Psych/Mental Status: Mental Status NL, Mood NL Results Lab Laboratory Tests 09/16/20 08:13 09/17/20 03:20 A/P-Cardiology Admission Diagnosis Atrial fibrillation Tachycardia Chest pain Hypertension Assessment/Plan Atrial fibrillation with rapid ventricular response, heart rate better controlled on diltiazem drip, planning to proceed with ROMANA and electrical cardioversion today. [id number] score of 2, yearly risk of stroke without oral anticoagulation is 2.2%. Started on Eliquis Atypical chest pain, having back pain, could be secondary to the persistent tachycardia, cardiac enzymes are negative, planning to evaluate stress test as an outpatient Hypertension, was on irbesartan as an outpatient, starting on diltiazem and monitor blood pressure Hyperlipidemia maintained on simvastatin, monitor lipids Family history of atrial fibrillation and flutter, brother had ablation Clinical Quality Measures AMI/AHF: ASA po Prior to arrival: Yes (81MG) ANMOL LIU MD Sep 17, 2020 8:00 am
--- NOTE | 2020-09-17 08:04 | Tele-ICU Progress Note ---
Subjective Date Seen by a Provider: Sep 17, 2020 Time Seen by a Provider: 09:55 Subjective/Events-last exam Admitted for A fib with RVR, now on IV Cardizem, Apixiban, spont V rate in 60's 70's BP ok, Had cardioversion, successful, to go home Sepsis Event Evaluation Height, Weight, BMI Height: 5'9.00" Weight: 187lbs. oz. 84.353218jy; 27.76 BMI Method:Stated Exam Exam Patient acknowledged, consented, and participated in this virtual visit which was conducted using real time audio/video Vital Signs Date Time Temp Pulse Resp B/P (MAP) Pulse Ox O2 Delivery O2 Flow Rate FiO2 09/17/20 07:45 35.1 09/17/20 06:00 76 25 154/71 (91) Room Air 09/17/20 05:00 69 20 132/83 (100) Room Air 09/17/20 04:00 Room Air 09/17/20 04:00 84 111/78 (91) Room Air 09/17/20 03:00 71 125/83 (97) Room Air 09/17/20 02:00 66 19 114/66 (82) Room Air 09/17/20 01:00 84 09/17/20 01:00 84 20 135/77 (96) Room Air 09/17/20 00:00 Room Air 09/17/20 00:00 83 8 133/81 (98) Room Air 09/16/20 23:00 75 23 115/81 (92) Room Air 09/16/20 22:00 93 113/88 (96) Room Air 09/16/20 21:00 67 18 135/78 (97) Room Air 09/16/20 20:00 67 18 135/78 (97) Room Air 09/16/20 20:00 Room Air 09/16/20 19:43 36.6 09/16/20 19:00 65 09/16/20 19:00 61 30 119/72 (88) Room Air 09/16/20 16:07 36.6 09/16/20 16:00 61 22 121/77 (92) Room Air 09/16/20 12:48 47 09/16/20 11:39 36.5 09/16/20 11:00 64 17 113/79 (90) Room Air 09/16/20 10:00 71 11 120/77 (91) 94 Room Air 09/16/20 08:51 86 16 140/87 100 I & O 09/17/20 07:00 Intake Total 1000 ml Output Total 1050 ml Balance -50 ml Height & Weight Laboratory Tests 09/16/20 08:13: White Blood Count 9.1, Red Blood Count 5.06, Hemoglobin 16.5, Hematocrit 49, Mean Corpuscular Volume 97, Mean Corpuscular Hemoglobin 33, Mean Corpuscular Hemoglobin Concent 34, Red Cell Distribution Width 12.5, Platelet Count 223, Mean Platelet Volume 10.2, Immature Granulocyte % (Auto) 1, Neutrophils (%) (Auto) 42, Lymphocytes (%) (Auto) 45H, Monocytes (%) (Auto) 9, Eosinophils (%) (Auto) 3, Basophils (%) (Auto) 0, Neutrophils # (Auto) 3.8, Lymphocytes # (Auto) 4.1H, Monocytes # (Auto) 0.8, Eosinophils # (Auto) 0.2, Basophils # (Auto) 0.0, Immature Granulocyte # (Auto) 0.1, Prothrombin Time 13.4, INR Comment 1.0, Activated Partial Thromboplast Time 29, D-Dimer < 0.27, Sodium Level 142, Potassium Level 3.7, Chloride Level 104, Carbon Dioxide Level 25, Anion Gap 13, Blood Urea Nitrogen 18, Creatinine 1.34H, Estimat Glomerular Filtration Rate 53, BUN/Creatinine Ratio 13, Glucose Level 126H, Calcium Level 9.1, Corrected Calcium , Magnesium Level 1.9, Total Bilirubin 0.8, Aspartate Amino Transf (AST/SGOT) 31, Alanine Aminotransferase (ALT/SGPT) 47, Alkaline Phosphatase 45, Myoglobin 76.6, Troponin I < 0.028, B-Type Natriuretic Peptide 26.0, Total Protein 7.7, Albumin 4.7H, Lipase 62 09/17/20 03:20: White Blood Count 9.0, Red Blood Count 4.82, Hemoglobin 15.8, Hematocrit 46, Mean Corpuscular Volume 95, Mean Corpuscular Hemoglobin 33, Mean Corpuscular Hemoglobin Concent 34, Red Cell Distribution Width 12.4, Platelet Count 209, Mean Platelet Volume 10.2, Sodium Level 139, Potassium Level 4.0, Chloride Level 105, Carbon Dioxide Level 24, Anion Gap 10, Blood Urea Nitrogen 19H, Creatinine 1.05, Estimat Glomerular Filtration Rate > 60, BUN/Creatinine Ratio 18, Glucose Level 112H, Calcium Level 8.8, Corrected Calcium 8.8, Magnesium Level 2.0, Total Bilirubin 0.5, Aspartate Amino Transf (AST/SGOT) 23, Alanine Aminotransferase (ALT/SGPT) 39, Alkaline Phosphatase 36L, Troponin I < 0.028, Total Protein 6.6, Albumin 4.0, Triglycerides Level 220H, Cholesterol Level 181, LDL Cholesterol Direct 113, VLDL Cholesterol 44H, HDL Cholesterol 42 Height: 5'9.00" Weight: 187lbs. oz. 84.096808af; 27.76 BMI Method:Stated General Appearance: WD/WN, Anxious, Mild Distress HEENT: PERRL/EOMI, Pharynx Normal, Moist Mucous Membranes Neck: Full Range of Motion, Normal Inspection Respiratory: Lungs Clear, Normal Breath Sounds, No Accessory Muscle Use, No Respiratory Distress Cardiovascular: Regular Rate, Rhythm, No Edema, Normal Peripheral Pulses, Irregularly Irregular, Tachycardia Capillary Refill: Less Than 3 Seconds Gastrointestinal: non tender Extremity: Normal Capillary Refill, Normal Inspection, Normal Range of Motion, Non Tender, No Calf Tenderness, No Pedal Edema Neurologic/Psychiatric: Alert, Oriented x3, Other (Anxious affect) Skin: Normal Color, Warm/Dry Lymphatic: No Adenopathy Results Lab Laboratory Tests 09/16/20 08:13 09/17/20 03:20 Assessment/Plan Assessment/Plan Admitted for A fib with RVR, now on IV Cardizem, Apixiban, spont V rate in 60's 70's BP ok, succeessful l cardioversion, home today, on ABHISHEK YUN MD Sep 17, 2020 08:04
[2020-09-17] MEDS ORDERED: NS IV 500 ML 500 ML ONE (08:33)
[2020-09-17] MEDS ORDERED: MIDAZOLAM 5 MG/5 ML (VERSED) VIAL ONE (08:33)
[2020-09-17] MEDS ORDERED: proPOfol 200 MG/20 ML (DIPRIVAN) VIAL IV ONE (08:33)
[2020-09-17] MEDS ORDERED: LIDOCAINE 2% VISCOUS 15 ML UDC ONE (08:33)
[2020-09-17] MEDS ORDERED: ASPIRIN 81 MG CHEW (CHILDREN'S ASA) PO SCH (09:00)
--- NOTE | 2020-09-17 09:28 | Anesthesia-General Post-Op ---
MAC Patient Condition Mental Status/LOC: Same as Preop Cardiovascular: Satisfactory Nausea/Vomiting: Absent Respiratory: Satisfactory Pain: Controlled Complications: Absent Post Op Complications Complications None Follow Up Care/Instructions Patient Instructions None needed. Anesthesiology Discharge Order Discharge Order Patient is doing well, no complaints, stable vital signs, no apparent adverse anesthesia problems. No complications reported per nursing. ADDISON VEE CRNA Sep 17, 2020 09:28
--- NOTE | 2020-09-17 09:29 | Anesthesia-Procedure Note ---
Procedures/Interventions Procedure Start/Stop/Diagnosis Date of Procedure: Sep 17, 2020 Start Time: 09:12 Stop Time: 09:22 ROMANA/Cardioversion Anesthesia Type: Mac ASA Class: 3 Medications Propofol 150 mg Versed 2 mg IV Monitors and Equipment: BP Cuff - Right, Continuous EKG, End Tidal CO2, IV, Pulse Oximeter, V Lead EKG ADDISON VEE CRNA Sep 17, 2020 09:29
--- NOTE | 2020-09-17 09:47 | Cardioversion ---
Cardioversion PROCEDURE PHYSICIAN: Anmol Garrison DATE OF PROCEDURE: 09/17/20 DIRECT EXTERNAL ELECTRICAL CARDIOVERSION: Indications: Atrial Fibrillation with rapid ventricular rate Preoperative diagnoses: Atrial Fibrillation with rapid ventricular rate Postoperative diagnosis: Sinus rhythm, Successful Electrical Cardioversion History: 70 years old gentleman admitted with atrial fibrillation and rapid ventricular response, started on Cardizem drip, did not achieve adequate control, underwent ROMANA and cardioversion today Anesthesia: By Anesthesia services Complications: None Specimen: None Contrast: 0 Flouroscopy: none Procedure Details: The patient was brought the dental laboratory manager after informed consent was taken, all the risks and complications were explained including the risk of stroke. Electrical cardioversion was carried out with anesthesia support with propofol. 200 joules of synchronized shock was delivered through external patches which promptly restored sinus rhythm. The patient tolerated the procedure well. Conclusions: Successful electrical cardioversion in terminating atrial fibrillation Final Diagnosis: Atrial fibrillation Palpitation Hypertension ANMOL GARRISON MD Sep 17, 2020 9:47 am
[2020-09-17] MEDS ORDERED: APIX5TAB PO (09:49)
[2020-09-17] MEDS ORDERED: DRON400T6 PO (09:49)
--- NOTE | 2020-09-17 09:49 | Discharge Inst-Post CATH ---
Discharge Inst-CATH/EP Problems Reviewed?: Yes Post Cardiac Cath/EP D/C Inst Follow Up/Plan Appointment with Dr. Garrison's office next week <b>CARDIAC CATH/EP PROCEDURE DISCHARGE INSTRUCTIONS</b> ACTIVITY * Go Home directly and rest. * Limit activity of the leg (or wrist if it was used) for 7 days including aerobics, swimming, jogging, bicycling, etc. * Restrict stair-climbing for 7 days if possible, if not, climb up with your non-cath leg, then bring together on the same step. * Avoid lifting, pushing, pulling or excessive movement of the affected extremity for 7 days. * Customary sexual activity may be resumed after 2 days-use caution not to use a position that strains or causes pain to the affected extremity. * No driving for 24 hours. * NO SMOKING. * Avoid straining for bowel movements for 7 days. * Gentle walking on level ground is allowed. * Returning to work will depend on the type of procedure and the results. Your doctor will discuss this with you. CALL YOUR DOCTOR FOR ANY OF THE FOLLOWING: *If bleeding from the puncture site occurs- Apply gentle pressure to site with clean cloth and call your doctor or EMS. * If a knot or lump forms under the skin, increases in size, or causes pain. * If bruising appears to be worsening or moving further down your leg instead of disappearing. * Temperature above 101 F. CARE OF YOUR GROIN INCISION; * Bruising or purple discoloration of the skin near the puncture site is common. * You may shower only, no bathtub bathing for 5 days. Be careful to avoid slipping as your leg may feel stiff. * If a closure device was used on your femoral artery, please see the attached guide regarding care of the device and your leg. * Leave dressing on FOR 24 hours. CARE OF YOUR WRIST INCISION; * Bruising or purple discoloration of the skin near the puncture site is common. * You may shower. * DO NOT submerge wrist. * Leave dressing on FOR 24 hours. ANMOL GARRISON MD Sep 17, 2020 9:49 am
[2020-09-17] MEDS ORDERED: DRONEDARONE TABLET 400 MG TABLET PO SCH (10:00)
[2020-09-17] MEDS: APIXABAN 5 MG (ELIQUIS) TABLET PO SCH (10:13)
[2020-09-17] MEDS: dilTIAZem DRIP PRE-MIX 125 ML IV SCH (10:23)
--- NOTE | 2020-09-17 13:27 | Discharge Summary ---
Discharge Summary Hospital Course Problems/Dx: (1) Paroxysmal atrial fibrillation with rapid ventricular response Status: Acute Hospital Course Date of Admission: Sep 16, 2020 at 08:30 Admission Diagnosis : Paroxysmal atrial fibrillation with rapid ventricular response Family Physician/Provider: Celine Gamboa MD Date of Discharge: 09/17/20 Discharge Diagnosis: Paroxysmal atrial fibrillation with rapid ventricular response Hospital Course: Rock Zimmer is a 70-year-old male with past medical history of hypertension, hyperlipidemia, who presented with shortness of breath and was admitted with paroxysmal atrial fibrillation with rapid ventricular response. Cardiology was consulted and assisted with his care. He was started on IV Cardizem and his heart rate improved. He was started on Eliquis for stroke prophylaxis. He rem ained in atrial fibrillation and underwent a ROMANA cardioversion which successfully converted him to normal sinus rhythm. He was started on Multaq. He will follow up with Dr. Garrison in the cardiology clinic. He was discharged home in stable condition. Labs and Pending Lab Test: Laboratory Tests 09/17/20 03:20: White Blood Count 9.0, Red Blood Count 4.82, Hemoglobin 15.8, Hematocrit 46, Mean Corpuscular Volume 95, Mean Corpuscular Hemoglobin 33, Mean Corpuscular Hemoglobin Concent 34, Red Cell Distribution Width 12.4, Platelet Count 209, Mean Platelet Volume 10.2, Sodium Level 139, Potassium Level 4.0, Chloride Level 105, Carbon Dioxide Level 24, Anion Gap 10, Blood Urea Nitrogen 19H, Creatinine 1.05, Estimat Glomerular Filtration Rate > 60, BUN/Creatinine Ratio 18, Glucose Level 112H, Calcium Level 8.8, Corrected Calcium 8.8, Magnesium Level 2.0, Total Bilirubin 0.5, Aspartate Amino Transf (AST/SGOT) 23, Alanine Aminotransferase ( ALT/SGPT) 39, Alkaline Phosphatase 36L, Troponin I < 0.028, Total Protein 6.6, Albumin 4.0, Triglycerides Level 220H, Cholesterol Level 181, LDL Cholesterol Direct 113, VLDL Cholesterol 44H, HDL Cholesterol 42 Home Meds Active Multaq (Dronedarone HCl) 400 Mg Tablet 400 Mg PO BID Eliquis (Apixaban) 5 Mg Tablet 5 Mg PO BID Reported Probiotic (L.acidoph & Paracasei,B.lactis) 1 Each Capsule 1 Each PO DAILY Coq-10 (Ubidecarenone) 100 Mg Capsule 100 Mg PO HS Aspirin EC (Aspirin) 81 Mg Tablet. 81 Mg PO HS Fish Oil 1,200 mg Softgel ([place]-3 Fatty Acids/Fish Oil) 1 Each Capsule 1 Each PO DAILY Multivitamin 1 Each Tablet 1 Each PO DAILY Irbesartan 150 Mg Tablet 150 Mg PO HS Simvastatin 40 Mg Tablet 40 Mg PO HS Assessment/Pt Instructions Take medications as prescribed. Follow-up with cardiology as scheduled. Follow-up with your primary care physician. Return with worsening shortness of breath, palpitations, or if you feel like you are getting worse. Discharge Planning: <30 minutes discharge planning Discharge Instructions Discharge Diet: No Restrictions Activity as Tolerated: Yes Consultations Cardiology Discharge Physical Examination Vital Signs Vital Signs Date Time Temp Pulse Resp B/P (MAP) Pulse Ox O2 Delivery O2 Flow Rate FiO2 09/17/20 12:35 36.2 09/17/20 12:11 97 Room Air 09/17/20 06:00 76 25 154/71 (91) General Appearance: No Apparent Distress, WD/WN Respiratory: Lungs Clear, Normal Breath Sounds, No Respiratory Distress Cardiovascular: Regular Rate, Rhythm, No Edema, No Murmur Gastrointestinal: Normal Bowel Sounds, Non Tender, Soft Extremity: Normal Inspection, Non Tender, No Pedal Edema Skin: Normal Color, Warm/Dry Neurologic/Psychiatric: Alert, Oriented x3, No Motor/Sensory Deficits, Normal Mood/Affect Allergies: Coded Allergies: codeine (Verified Allergy, Mild, ITCHING, 09/13/19) Sulfa (Sulfonamide Antibiotics) (Verified Allergy, Unknown, FROM CHILDHOOD, 09/13/19) Copy Copies To 1: CELINE GAMBOA MD Discharge Summary Date of Admission Sep 16, 2020 at 08:30 Date of Discharge Discharge Date: Sep 17, 2020 Discharge Time: 13:23 Admission Diagnosis Paroxysmal atrial fibrillation with rapid ventricular response Consults/Procedures Consulations Cardiology Procedures ROMANA cardioversion Discharge Diagnosis (1) Paroxysmal atrial fibrillation with rapid ventricular response Status: Acute Clinical Quality Measures AMI/AHF: ASA po Prior to arrival: Yes (81MG) RANDELL PATEL MD Sep 17, 2020 13:27
== END 2020-09-17 13:50 | disposition home or self-care (01) ==
LOC: EDUNIT# 07:56 → ER 07:57 → ICU 08:30
PROVIDERS: ADMIT Internal Medicine; ATTEND Internal Medicine
DX: I48.0 Paroxysmal atrial fibrillation (principal); I10 Essential (primary) hypertension; J44.9 Chronic obstructive pulmonary disease, unspecified; E03.9 Hypothyroidism, unspecified; E78.00 Pure hypercholesterolemia, unspecified; E78.5 Hyperlipidemia, unspecified; Z79.899 Other long term (current) drug therapy; Z79.01 Long term (current) use of anticoagulants
CPT/HCPCS: 36415; 71045; 80053; 80061; 83690; 83735; 83874; 83880; 84484; 85025; 85027; 85379; 85610; 85730; 93005; 93306; 93312; 93320; 93325; G0378

== ENCOUNTER 2020-10-05 02:44 | Emergency (ER) | payer BC ==
[~2020-10-05] VITALS: Ht 175 cm; Wt 86.0 kg
[~2020-10-05 02:44] MED LIST changes: +APIX5TAB PO; +ASPI-1238 PO; +DRON400T6 PO; +L.AC1CAP6 PO; +UBID100C17 PO
--- NOTE | 2020-10-05 03:32 | ED Cardiac General ---
History of Present Illness General Chief Complaint: Cardiac/General Problems Stated Complaint: IRR HEART RATE Source: patient Exam Limitations: no limitations History of Present Illness Date Seen by Provider: Oct 05, 2020 Time Seen by Provider: 03:19 Initial Comments Patient is a 70-year-old male who was recently diagnosed with A. fib about 3 weeks ago and started on Multaq and Eliquis. Presents to the emergency room tonight with a chief complaint of feeling his heart "jumping around" in his chest. Patient states that he has had it more persistently this evening. He denies shortness of breath or shortness of breath with exertion. He denies recent illnesses such as fevers, chills, cough or congestion. He is Covid vaccinated. He has had a little bit of soft stools recently but no overt diarrhea. No problems with bladder. No other complaints of illness or injury recently. States that he is compliant with his medications. Per review of the medical record the patient had electrical cardioversion and was converted into sinus rhythm by Dr. Garrison. He has since obviously converted back into A. fib but seems to be rate controlled at a rate of 95-110 or so. All other review of systems reviewed and negative except as stated above. Timing/Duration: constant Severity: mild Activities at Onset: activity Prior CP/Workup: echocardiography Associated Systoms: Denies Symptoms Allergies and Home Medications Allergies Coded Allergies: codeine (Verified Allergy, Mild, ITCHING, 09/13/19) Sulfa (Sulfonamide Antibiotics) (Verified Allergy, Unknown, FROM CHILDHOOD, 09/13/19) Home Medications Apixaban 5 Mg Tablet, 5 MG PO BID Prescribed by: ANMOL GARRISON on 09/17/20 0949 Aspirin 81 Mg Tablet.dr, 81 MG PO HS, (Reported) Dronedarone HCl 400 Mg Tablet, 400 MG PO BID Prescribed by: ANMOL GARRISON on 09/17/20 0949 Irbesartan 150 Mg Tablet, 150 MG PO HS, (Reported) L.acidoph & Paracasei,B.lactis 1 Each Capsule, 1 EACH PO DAILY, (Reported) Multivitamin 1 Each Tablet, 1 EACH PO DAILY, (Reported) [place]-3 Fatty Acids/Fish Oil 1 Each Capsule, 1 EACH PO DAILY, (Reported) Simvastatin 40 Mg Tablet, 40 MG PO HS, (Reported) Ubidecarenone 100 Mg Capsule, 100 MG PO HS, (Reported) Patient Home Medication List Home Medication List Reviewed: Yes Review of Systems Review of Systems Constitutional: see HPI EENTM: No Symptoms Reported Respiratory: No Symptoms Reported Cardiovascular: Irregular Heart Rate, Palpitations Gastrointestinal: No Symptoms Reported Genitourinary: No Symptoms Reported Musculoskeletal: no symptoms reported Skin: no symptoms reported Psychiatric/Neurological: Anxiety All Other Systems Reviewed Negative Unless Noted: Yes Past Qhszwyi-Qyliyh-Bsjgzo Hx Seasonal Allergies Seasonal Allergies: Yes (MILD) Past Medical History Surgeries: Yes Eye Surgery Respiratory: Yes (ASTHMA A CHILD) COPD Cardiac: Yes High Cholesterol, Hypertension Neurological: No Sexually Transmitted Disease: No HIV/AIDS: No Genitourinary: No Gastrointestinal: No Musculoskeletal: No Endocrine: No HEENT: No (CONTACTS) Loss of Vision: Denies Hearing Impairment: Denies Cancer: No Psychosocial: No Integumentary: No Blood Disorders: No Adverse Reaction/Blood Tranf: No (N/A) Family Medical History No Pertinent Family Hx Physical Exam Vital Signs Vital Signs - First Documented 10/05/20 03:35 Temp 36.7 Pulse 86 Resp 14 Pulse Ox 98 O2 Delivery Room Air Capillary Refill : Height, Weight, BMI Height: 5'9.00" Weight: 187lbs. oz. 84.795730in; 27.76 BMI Method:Stated General Appearance: No Apparent Distress, WD/WN Neck: Normal Inspection Respiratory: Lungs Clear, Normal Breath Sounds, No Accessory Muscle Use, No Respiratory Distress Cardiovascular: Normal Peripheral Pulses, Irregularly Irregular Gastrointestinal: Non Tender, Soft Extremity: Normal Capillary Refill, Normal Inspection, Normal Range of Motion Neurologic/Psychiatric: Alert, Oriented x3, No Motor/Sensory Deficits, Normal Mood/Affect Skin: Normal Color, Warm/Dry Progress/Results/Core Measures Results/Orders Lab Results Laboratory Tests Test 10/05/20 03:00 Range/Units Sodium Level 142 135-145 MMOL/L Potassium Level 4.1 3.6-5.0 MMOL/L Chloride Level 105 98-107 MMOL/L Carbon Dioxide Level 23 21-32 MMOL/L Anion Gap 14 5-14 MMOL/L Blood Urea Nitrogen 16 7-18 MG/DL Creatinine 1.19 0.60-1.30 MG/DL Estimat Glomerular Filtration Rate > 60 BUN/Creatinine Ratio 13 Glucose Level 114 H 70-105 MG/DL Calcium Level 9.3 8.5-10.1 MG/DL Magnesium Level 2.1 1.6-2.4 MG/DL My Orders Orders - HUBER SHEA MD Basic Metabolic Panel (10/05/20 03:35) Magnesium (10/05/20 03:35) Ekg Tracing (10/05/20 03:35) Vital Signs/I&O 10/05/20 03:35 Temp 36.7 Pulse 86 Resp 14 B/P (MAP) Pulse Ox 98 O2 Delivery Room Air Progress Progress Note : Time: 03:58 Progress Note normal BMP and MAgnesium. Patient is basically asymptomatic of his afib. Just very anxious about having it. Will have him follow up with dr garrison on Tuesday. Initial ECG Impression Date: Oct 05, 2020 Initial ECG Impression Time: 03:00 Initial ECG Rate: 99 Initial ECG Rhythm: A Fib/Flutter Initial ECG Impression: Atrial Fibrillation Departure Impression Primary Impression: Atrial fibrillation Qualified Codes: I48.19 - Other persistent atrial fibrillation Disposition: HOME, SELF-CARE Condition: Stable Departure-Patient Inst. Decision time for Depature: 03:34 Referrals: CELINE GAMBOA MD (PCP/Family) Primary Care Physician Patient Instructions: Atrial Fibrillation (DC) Add. Discharge Instructions: Continue your daily medications as prescribed. Call Dr. Garrison's office on Tuesday for further direction about exercise etc. Return to the emergency room for any new, concerning or emergent complaints. Copy Copies To 1: ANMOL GARRISON MD, KATHRYN M MD Oct 05, 2020 03:32
[2020-10-05 03:46] LABS: CHLORIDE 105 MMOL/L (98-107); POTASSIUM 4.1 MMOL/L (3.6-5.0); SODIUM 142 MMOL/L (135-145)
[2020-10-05 03:47] LABS: CALCIUM 9.3 MG/DL (8.5-10.1)
[2020-10-05 03:48] LABS: GLUCOSE 114 MG/DL (70-105)
[2020-10-05 03:49] LABS: CARBON DIOXIDE 23 MMOL/L (21-32)
[2020-10-05 03:52] LABS: CREATININE SERUM 1.19 MG/DL (0.60-1.30); GFR ESTIMATED > 60
[2020-10-05 03:53] LABS: BUN/CREATININE RATIO 13
[2020-10-05 03:54] LABS: MAGNESIUM 2.1 MG/DL (1.6-2.4)
[2020-10-05 04:09] VITALS: BP 133/70
== END 2020-10-05 04:06 | disposition home or self-care (01) ==
LOC: EDUNIT# 02:44 → ER 02:46
DX: I48.91 Unspecified atrial fibrillation (principal); J44.9 Chronic obstructive pulmonary disease, unspecified; I10 Essential (primary) hypertension; E78.00 Pure hypercholesterolemia, unspecified; Z79.899 Other long term (current) drug therapy; Z79.82 Long term (current) use of aspirin; Z79.01 Long term (current) use of anticoagulants
CPT/HCPCS: 36415; 80048; 83735; 93005

== ENCOUNTER → 2020-10-09 | Outpatient (CLI) | payer BC | LOC: CARD 11:30 | PROVIDERS: ATTEND Nurse Practitioner Family | DX: F41.9 Anxiety disorder, unspecified (principal); Z86.79 Personal history of other diseases of the circulatory system | CPT/HCPCS: 93005 ==

== ENCOUNTER 2020-12-10 07:30 | Outpatient (CLI) | payer BC ==
[~2020-12-10] VITALS: Ht 175 cm; Wt 196.0 kg
[2020-12-10] VITALS (10 sets, daily range): BP systolic 108–187; BP diastolic 61–101
[~2020-12-10 07:30] MED LIST changes: +CATHETER FLUSH 10 ML SYR IV PRN
[2020-12-10] MEDS ORDERED: HEParin (CATH LAB) 2,000 ML IV ONE (10:29)
[2020-12-10] MEDS ORDERED: LIDOCAINE 1% INJ 20 ML 20 ML VIAL ONE (10:29)
[2020-12-10] MEDS ORDERED: NS IV 1000 ML 1,000 ML ONE (10:29)
[2020-12-10] MEDS: NS IV 1000 ML 1,000 ML IV SCH ×3 (10:38→21:28)
[2020-12-10 10:53] LABS: BILIRUBIN,URINE NEGATIVE (NEGATIVE); CLARITY,URINE CLEAR; COLOR,URINE YELLOW; GLUCOSE, URINE (UA) NEGATIVE (NEGATIVE); KETONES,URINE NEGATIVE (NEGATIVE); LEUKOCYTE ESTERASE ,URINE TRACE (NEGATIVE); NITRITE,URINE NEGATIVE (NEGATIVE); PROTEIN,URINE NEGATIVE (NEGATIVE)
[2020-12-10 10:54] LABS: HEMATOCRIT 48 % (40-54); HEMOGLOBIN 16.3 g/dL (13.3-17.7); MEAN CORPUSCULAR HEMOGLOBIN 33 pg (25-34); MEAN CORPUSCULAR HGB CONC 34 g/dL (32-36); MEAN CORPUSCULAR VOLUME 96 fL (80-99); PLATELET COUNT 237 10^3/uL (130-400); WHITE BLOOD COUNT 10.3 10^3/uL (4.3-11.0)
[2020-12-10 11:05] LABS: PROTHROMBIN TIME PATIENT 13.8 SEC (12.2-14.7)
[2020-12-10] MEDS ORDERED: DRON400T6 PO (11:05)
[2020-12-10] MEDS ORDERED: ESCI10TA PO (11:05)
[2020-12-10] MEDS ORDERED: APIX5TAB PO (11:05)
[2020-12-10 11:11] LABS: ALANINE AMINOTRANSFERASE 38 U/L (0-55); ALBUMIN 4.7 GM/DL (3.2-4.5); ALKALINE PHOSPHATASE 42 U/L (40-136); BILIRUBIN,TOTAL 0.9 MG/DL (0.1-1.0); BUN/CREATININE RATIO 13; CARBON DIOXIDE 25 MMOL/L (21-32); CHLORIDE 103 MMOL/L (98-107); CHOLESTEROL 194 MG/DL (< 200); CREATININE SERUM 1.13 MG/DL (0.60-1.30); GFR ESTIMATED 65; GLUCOSE 108 MG/DL (70-105); HDL CHOLESTEROL 49 MG/DL (40-60); POTASSIUM 4.2 MMOL/L (3.6-5.0); SODIUM 141 MMOL/L (135-145); TOTAL PROTEIN 7.5 GM/DL (6.4-8.2); TRIGLYCERIDES 176 MG/DL (<150); VLDL CHOLESTEROL 35 MG/DL (5-40)
--- NOTE | 2020-12-10 11:15 | Cardiology Stress Test Report ---
Stress Test Report Date of Procedure/Referring: Date of Procedure: Dec 10, 2020 PCP Anmol Garrison MD Admitting Physician Viktor Kapoor MD Indications: HTN Baseline Heart Rate: 50 Baseline Blood Pressure: Blood Pressure Systolic: 187 Blood Pressure Diastolic: 101 Vital Signs Date Time Temp Pulse Resp B/P (MAP) Pulse Ox O2 Delivery O2 Flow Rate FiO2 12/10/20 08:55 72 18 165/88 (113) 98 Room Air 12/10/20 10:43 36.7 Baseline Vital Signs Vital Signs Date Time Temp Pulse Resp B/P (MAP) Pulse Ox O2 Delivery O2 Flow Rate FiO2 12/10/20 08:55 72 18 165/88 (113) 98 Room Air 12/10/20 10:43 36.7 Baseline EKG: Baseline EKG: NSR Summary: After explaining the procedure and details to the patient, he signed the consent and was brought to the stress nuclear laboratory. Patient exercised on standard El protocol, EKG, heart rate and blood pressure were monitored continuously, resting and stress doses of radio tracer were injected, imaging was acquired and reviewed in the short axis, horizontal long axis and vertical long axis views Patient was able to exercise for a total of 11 minutes on El protocol, METs 12.1 Maximum heart rate 166 Maximum blood pressure 215/104 Stress EKG, Minimal nondiagnostic changes Recovery EKG, Return to baseline TID: 0.87 SSS: 7 SDS: 1 EF: 66 Conclusion: 1. Excellent exercise tolerance for a total of 11 min on standard El protocol, 12.1 METS achieving 100% of maximal expected heart rate 2. Appropriate heart rate response to exercise with severe hypertensive response to exercise return to baseline during recovery 3. Frequent PVCs and ventricular bigeminy noted during exercise at peak exercise level and multiple ventricular couplets resolved in recovery 4. Abnormal EKG with [address] depression in lead II, [address] depression in lead III and lead aVF, V3, V4 horizontal suggestive of ischemia 5. Mild decrease uptake involving the basal to mid anterolateral and inferolateral wall with subtle reversibility 6. Normal left ventricular size, EF 66 ANMOL GARRISON MD Dec 10, 2020 11:15
[2020-12-10 11:29] LABS: BACTERIA,URINE FEW /HPF; SQUAMOUS EPITHELIAL CELL,UR 0-2 /HPF
--- NOTE | 2020-12-10 12:42 | Diagnostic Imaging Report ---
INDICATION: DYSPNEA. TECHNIQUE: Single view chest 12:22 PM. CORRELATION STUDY: 09/16/2020 FINDINGS: Heart size enlarged. Slightly more prominent from prior. Vasculature overall within normal limits. Left diaphragm somewhat obscured likely owing to cardiac enlargement. Trace effusion and/or atelectasis and/or infiltrate would be difficult to exclude. IMPRESSION: 1. Cardiac enlargement perhaps slightly more prominent from prior but without overt failure. 2. Left diaphragm partially obscured. Maybe owing to cardiac enlargement possibly small effusion with atelectasis and/or infiltrate not excluded. Dictated by: Dictated on workstation # [id number]
[2020-12-10] MEDS ORDERED: MIDAZOLAM 5 MG/5 ML (VERSED) VIAL ONE (14:46)
[2020-12-10] MEDS ORDERED: fentaNYL INJ 100 MCG/2 ML AMP ONE (14:46)
[2020-12-10] MEDS ORDERED: VERAPAMIL 5 MG/2 ML (CALAN) VIAL IV ONE (14:46)
[2020-12-10] MEDS ORDERED: HEParin 1000 UNIT/ML (10ML VIAL) FOR BOLUS ONE (14:46)
[2020-12-10] MEDS ORDERED: NITRO DRIP 25000 MCG/D5W 250 ML IV ONE (14:48)
[2020-12-10] MEDS ORDERED: ASPIRIN 325 MG (5 GR) TABLET ONE (16:04)
[2020-12-10] MEDS ORDERED: CLOPIDOGREL 300 MG (PLAVIX) TABLET PO ONE (16:04)
--- NOTE | 2020-12-10 16:08 | Cardiac Cath Report ---
Cardiac Cath Report Physician (s)/Industrial Engineering (s) Physician ANMOL LIU MD Pre-Procedure Diagnosis Pre-Procedure Diagnosis: Coronary artery disease Post-Procedure Note Procedure Start Date: Dec 10, 2020 Name of Procedure: Left heart catheterization Stenting to the LAD Balloon angioplasty to the diagonal artery Findings/Procedure Note PROCEDURE NOTE: 70-year-old gentleman with history of paroxysmal atrial fibrillation, hypertension hyperlipidemia, underwent stress test today, during stress test he developed frequent PVCs and ventricular bigeminy and short runs of nonsustained ventricular tachycardia, had an abnormal stress test, scheduled for cardiac catheterization possible PTCA. After explaining the procedure to the patient, all pros and cons were explained, all questions were answered. The patient signed the consent and then he was placed on the cardiac catheterization laboratory. Groin was prepped SL fashion local anesthesia was used. Sheath placed in the right radial artery, [place] catheter was advanced to the left ventricular cavity, pressure was measured, pullback LV to aorta was done, intubated the right and left coronary system, angiogram was done. Patient received total of 6000 units of heparin, EBU 3.5 was tried then I was successful with EBU 4 to intubate the left coronary system, patient has severe stenosis at the distal LAD, BMW wire was advanced and primary stenting using Rochelle 2.5 x 23 mm expanded to 2.7 mm with excellent results. Patient was noted to have a lesion in the proximal diagonal artery very tortuous artery, I advanced the wire and attempted balloon angioplasty using 2 x 20 trek balloon, the balloon without inflation was shutting down the artery. I did single inflation the diagonal artery, there is significant recoil, no complication noted At the end of the procedure the sheath was removed. Vascular band deployed FINDINGS: Hemodynamics LV 104/10, end-diastolic pressure of 10 Aorta 112/58 mean of 69 ANATOMY: Left Main is free of obstructive disease Left Anterior Descending is moderate in size, severe stenosis at the distal LAD successful primary stenting using 2.5 x 23 Rochelle stent expanded to 2.7 mm with excellent results. Tortuous diagonal artery with severe stenosis at the proximal portion, fairly small artery, attempt for balloon angioplasty did not show significant improvement of the artery, there was a recoil. Too small for a stent placement Left Circumflex is moderate in size with mild irregularity no obstructive disease Right Coronary Artery is moderate in size with no obstructive disease LV Gram was not done, pressure was measured CONCLUSION: 1. Severe stenosis in the distal LAD successful primary stenting using 2.5 x 23 Rochelle stent expanded to 2.7 mm 2. Severe stenosis at the first diagonal artery, fairly small and tortuous artery, balloon angioplasty was done to the proximal artery, there is significant recoiling, the artery is 2 mm in diameter at max, cannot support a stent 3. Otherwise mild disease in the circumflex artery and right coronary artery DISCUSSION AND RECOMMENDATION: Patient was loaded with aspirin and Plavix will require aspirin Plavix and Coumadin/Eliquis for the next 3 months then continue on Eliquis and Plavix Anesthesia Type: Conscious Sedation Estimated blood loss (mL): 20 ml Contrast Amount: 160 ml Total Radiation Dose: 1215 mGy Post-Procedure Diagnosis Post-operative diagnosis: Coronary artery disease Paroxysmal atrial fibrillation Hypertension Hyperlipidemia ANMOL LIU MD Dec 10, 2020 16:08
[2020-12-10] MEDS ORDERED: PATIENT MAY USE OWN MEDS, ALL PO SCH (16:15)
[2020-12-10] MEDS ORDERED: AVAPRO PO SCH (21:00)
[2020-12-10] MEDS ORDERED: SIMvastatin 40 MG (ZOCOR) TAB PO SCH (21:00)
[2020-12-10] MEDS ORDERED: NON-FORMULARY MEDICATION 1 EA EA (Multivitamin 1 EACH) PO SCH (21:00)
[2020-12-10] MEDS ORDERED: NON-FORMULARY MEDICATION 1 EA EA (Escitalopram Oxalate (Lexapro) 10 MG) PO SCH (21:00)
[2020-12-10] MEDS ORDERED: DRONEDARONE TABLET 400 MG TABLET PO SCH (21:00)
[2020-12-10] MEDS ORDERED: IRBESARTAN 150 MG PO SCH (21:00)
[2020-12-10] MEDS ORDERED: LOSARTAN 50 MG (COZAAR) TAB PO SCH (21:00)
[2020-12-11] VITALS: BP 143/74
[2020-12-11 01:08] VITALS: BP 143/74
[2020-12-11] MEDS: NS IV 1000 ML 1,000 ML IV SCH ×2 (02:15→05:44)
[2020-12-11 04:00] VITALS: BP 140/80
[2020-12-11 05:08] LABS: HEMATOCRIT 43 % (40-54); HEMOGLOBIN 14.9 g/dL (13.3-17.7); MEAN CORPUSCULAR HEMOGLOBIN 33 pg (25-34); MEAN CORPUSCULAR HGB CONC 35 g/dL (32-36); MEAN CORPUSCULAR VOLUME 96 fL (80-99); MEAN PLATELET VOLUME 10.1 fL (9.0-12.2); PLATELET COUNT 204 10^3/uL (130-400); WHITE BLOOD COUNT 8.6 10^3/uL (4.3-11.0)
[2020-12-11 05:19] LABS: CALCIUM 8.8 MG/DL (8.5-10.1)
[2020-12-11 05:23] LABS: CREATININE SERUM 1.07 MG/DL (0.60-1.30)
[2020-12-11] MEDS ORDERED: CLOP75TA28 PO (06:18)
[2020-12-11] MEDS ORDERED: ASPI-1238 PO (06:18)
[2020-12-11] MEDS ORDERED: PANT40SU PO (06:18)
--- NOTE | 2020-12-11 06:19 | Discharge Inst-Post CATH ---
Discharge Inst-CATH/EP Problems Reviewed?: Yes Post Cardiac Cath/EP D/C Inst Follow Up/Plan Appointment with Dr Garrison in 2-4 weeks <b>CARDIAC CATH/EP PROCEDURE DISCHARGE INSTRUCTIONS</b> ACTIVITY * Go Home directly and rest. * Limit activity of the leg (or wrist if it was used) for 7 days including aerobics, swimming, jogging, bicycling, etc. * Restrict stair-climbing for 7 days if possible, if not, climb up with your non-cath leg, then bring together on the same step. * Avoid lifting, pushing, pulling or excessive movement of the affected extremity for 7 days. * Customary sexual activity may be resumed after 2 days-use caution not to use a position that strains or causes pain to the affected extremity. * No driving for 24 hours. * NO SMOKING. * Avoid straining for bowel movements for 7 days. * Gentle walking on level ground is allowed. * Returning to work will depend on the type of procedure and the results. Your doctor will discuss this with you. CALL YOUR DOCTOR FOR ANY OF THE FOLLOWING: *If bleeding from the puncture site occurs- Apply gentle pressure to site with clean cloth and call your doctor or EMS. * If a knot or lump forms under the skin, increases in size, or causes pain. * If bruising appears to be worsening or moving further down your leg instead of disappearing. * Temperature above 101 F. CARE OF YOUR GROIN INCISION; * Bruising or purple discoloration of the skin near the puncture site is common. * You may shower only, no bathtub bathing for 5 days. Be careful to avoid slipping as your leg may feel stiff. * If a closure device was used on your femoral artery, please see the attached guide regarding care of the device and your leg. * Leave dressing on FOR 24 hours. CARE OF YOUR WRIST INCISION; * Bruising or purple discoloration of the skin near the puncture site is common. * You may shower. * DO NOT submerge wrist. * Leave dressing on FOR 24 hours. ANMOL GARRISON MD Dec 11, 2020 06:19
[2020-12-11] MEDS ORDERED: MULTIVIT W/MINERALS TAB (THERAGRAN M) PO SCH (07:00)
[2020-12-11 08:00] VITALS: BP 132/79
--- NOTE | 2020-12-11 08:41 | Cardiology Progress Note ---
Subjective Date Seen by Provider: Dec 11, 2020 Time Seen by Provider: 08:39 Subjective/Events-last exam Patient was seen at bedside, feeling well. Denies any chest pain, wrist is healing well Review of Systems General: No Chills, No Night Sweats, No Fatigue, No Malaise, No Appetite, No Ot her HEENT: No Head Aches, No Visual Changes, No Eye Pain, No Ear Pain, No Dysp hasia, No Sinus Congestion, No Post Nasal Drip, No Sore Throat, No Other Pulmonary: No Dyspnea, No Cough, No Pleuritic Chest Pain, No Other Cardiovascular: No: Chest Pain, Palpitations, Orthopnea, Paroxysmal Noc. Dyspnea, Edema, Lt Headedness, Other Objective-Cardiology Exam Last Set of Vital Signs Vital Signs 12/11/20 12/11/20 04:00 08:00 Temp 37.1 Pulse 52 Resp 14 B/P (MAP) 132/79 (96) Pulse Ox 92 O2 Delivery Room Air General: Alert, Oriented X3, Cooperative HEENT: Atraumatic, PERRLA Neck: Supple, No JVD, No Thyromegaly Lungs: Clear to Auscultation, Normal Air Movement Heart: Regular Rate, Normal S1, Normal S2, No Murmurs Abdomen: Normal Bowel Sounds, Soft, No Tenderness, No Hepatosplenomegaly, No Masses Extremities: No Clubbing, No Cyanosis, No Edema, Normal Pulses, No Tenderness/Swelling Skin: No Rashes, No Breakdown, No Significant Lesion Neuro: Normal Gait, Normal Speech, Strength at 5/5 X4 Ext, Normal Tone, Sensation Intact Psych/Mental Status: Mental Status NL, Mood NL Results Lab Laboratory Tests 12/10/20 10:42 12/11/20 05:02 A/P-Cardiology Admission Diagnosis Coronary artery disease Paroxysmal atrial fibrillation Hypertension Hyperlipidemia Assessment/Plan Coronary artery disease status post stenting to the LAD, balloon angioplasty to the diagonal artery as described below. 1. Severe stenosis in the distal LAD successful primary stenting using 2.5 x 23 Rochelle stent expanded to 2.7 mm 2. Severe stenosis at the first diagonal artery, fairly small and tortuous artery, balloon angioplasty was done to the proximal artery, there is significant recoiling, the artery is 2 mm in diameter at max, cannot support a stent 3. Otherwise mild disease in the circumflex artery and right coronary artery Paroxysmal atrial fibrillation, maintained on Multaq, Eliquis. Patient will continue on Aspirin, Plavix and Eliquis for now, planning to switch him to Plavix and Eliquis Hypertension, monitor blood pressure Hyperlipidemia, continue on statin ANMOL LIU MD Dec 11, 2020 08:41
[2020-12-11] MEDS ORDERED: CLOPIDOGREL 75 MG (PLAVIX) TABLET PO SCH (09:00)
[2020-12-11] MEDS ORDERED: ASPIRIN E.C. 81 MG (ECOTRIN) TAB PO SCH (09:00)
[2020-12-11] MEDS ORDERED: LACTOBACILLUS ACIDOPHILUS (PROBIOTIC) CAPSULE PO SCH (09:00)
[2020-12-11] MEDS ORDERED: OMEGA 3 (FISH OIL) 1000 MG CAP PO SCH (09:00)
[2020-12-11] MEDS ORDERED: NON-FORMULARY MEDICATION 1 EA EA (Omega-3 Fatty Acids/Fish Oil (Fish Oil 1,200 mg Softgel) PO SCH (09:00)
[2020-12-11] MEDS ORDERED: NON-FORMULARY MEDICATION 1 EA EA (L.acidoph & Paracasei,B.lactis (Probiotic) 1 EACH) PO SCH (09:00)
== END 2020-12-11 08:45 | disposition home or self-care (01) ==
LOC: CARD 07:30 → CSD 17:10 → CATH 12-11 08:45
PROVIDERS: ATTEND Internal Medicine Cardiovascular Disease
DX: I48.0 Paroxysmal atrial fibrillation (principal); I10 Essential (primary) hypertension; R94.39 Abnormal result of other cardiovascular function study
CPT/HCPCS: 71045; 78452; 80048; 80053; 80061; 81000; 85027 ×2; 85610; 85730; 87081; 87088; 93005; 93017; 93458; A9502; C1725; C1769; C1874; C1887 ×2; C1894; C9600; 36415

== ENCOUNTER 2021-09-11 13:24 | Emergency (ER) | payer BC ==
[~2021-09-11] VITALS: Ht 175 cm; Wt 89.0 kg
[~2021-09-11 13:24] MED LIST changes: -CATHETER FLUSH 10 ML SYR IV PRN; +CLOP75TA28 PO; +ESCI10TA PO; +PANT40SU PO
--- NOTE | 2021-09-11 16:37 | ED Neurological Problem ---
General Chief Complaint: Dizziness/Syncope Stated Complaint: DIZZY Nursing Triage Note: PT AMB TO ED BY POV WITH C/O VERTIGO. PT REPORTS HE HAS HAD VERTIGO IN THE PAST AND FEELS THE SAME. REPORTS DIZZINESS OVER THE LAST WEEK, WORSE TODAY. DENIES N/V/D, FEVER, GILES. Source: patient Exam Limitations: no limitations History of Present Illness Date Seen by Provider: Sep 11, 2021 Time Seen by Provider: 16:15 Initial Comments This is 71-year-old gentleman presents to the emergency room with complaints of fairly intense vertigo over the past week and worse today. He has had episodes of vertigo in the past but not this intense or persistent. Usually his vertigo is triggered by intense physical activity or workouts. He did not have that same kind of trigger this time. He visited his chiropractor. No musculoskeletal adjustments were done but he did perform the Pj maneuver multiple times. Patient became very symptomatic with the Pj maneuver and so further efforts were discontinued. Patient attempted to do the Pj maneuver at home multiple times and he reports that calm down the symptoms significantly. He still does have some more mild vertigo with head movements. He reports Dr. Garrison had carotid ultrasound performed a few months ago, and no stenosis was identified. He has atrial fibrillation for which he is anticoagulated. He also has coronary artery disease for which he takes Plavix. He denies any focal neurologic deficits or symptoms aside from the vertigo. Ambulation is not affected and he denies having disequilibrium associated with the vertigo. He d oes see Dr. Leal for excessive cerumen and dry, itchy ears and canals with excessive skin flaking. Allergies and Home Medications Allergies Coded Allergies: codeine (Verified Allergy, Mild, ITCHING, 09/13/19) Sulfa (Sulfonamide Antibiotics) (Verified Allergy, Unknown, FROM CHILDHOOD, 09/13/19) Patient Home Medication List Home Medication List Reviewed: Yes Apixaban (Eliquis) 5 Mg Tablet, 5 MG PO BID, (Reported) Entered as Reported by: CHARLETTE CHOU on 12/10/20 1105 Aspirin (Aspirin EC) 81 Mg Tablet.dr 81 MG PO DAILY Prescribed by: ANMOL GARRISON on 12/11/20617 Clopidogrel Bisulfate (Clopidogrel) 75 Mg Tablet, 75 MG PO DAILY Prescribed by: ANMOL GARRISON on 9/16/21 0618 Dronedarone HCl (Multaq) 400 Mg Tablet, 400 MG PO BID, (Reported) Entered as Reported by: CHARLETTE CHOU on 12/10/20 1105 Escitalopram Oxalate (Lexapro) 10 Mg Tablet, 10 MG PO HS, (Reported) Entered as Reported by: CHARLETTE CHOU on 12/10/20 1105 Irbesartan (Irbesartan) 150 Mg Tablet, 150 MG PO HS, (Reported) Entered as Reported by: BIRD HERNANDEZ on 09/13/19 1134 L.acidoph & Paracasei,B.lactis (Probiotic) 1 Each Capsule, 1 EACH PO DAILY, (Reported) Entered as Reported by: LINDSEY REYES on 09/16/20 1326 Multivitamin (Multivitamin) 1 Each Tablet, 1 EACH PO BID, (Reported) Entered as Reported by: BIRD HERNANDEZ on 09/13/19 1134 [place]-3 Fatty Acids/Fish Oil (Fish Oil 1,200 mg Softgel) 1 Each Capsule, 1 EACH PO DAILY, (Reported) Entered as Reported by: BIRD HERNANDEZ on 09/13/19 1134 Pantoprazole Sodium (Protonix) 40 Mg Granpkt.dr, 40 MG PO DAILY Prescribed by: ANMOL GARRISON on 12/11/2018 Simvastatin (Simvastatin) 40 Mg Tablet, 40 MG PO HS, (Reported) Entered as Reported by: BIRD HERNANDEZ on 09/13/19 1134 Ubidecarenone (Coq-10) 100 Mg Capsule, 100 MG PO HS, (Reported) Entered as Reported by: LINDSEY REYES on 09/16/20 1326 Review of Systems Review of Systems Constitutional: no symptoms reported Eyes: No Symptoms Reported Ears, Nose, Mouth, Throat: see HPI Respiratory: no symptoms reported Cardiovascular: no symptoms reported Gastrointestinal: no symptoms reported Genitourinary: no symptoms reported Musculoskeletal: no symptoms reported Skin: no symptoms reported Psychiatric/Neurological: See HPI Endocrine: No Symptoms Reported Hematologic/Lymphatic: No Symptoms Reported Past Gzpqise-Ueiqpy-Gvwcog Hx Patient Social History Tobacco Use?: No Use of E-Cig and/or Vaping dev: No Substance use?: No Alcohol Use?: Yes Alcohol type: Beer Alcohol Frequency: Couple times a week Pt feels they are or have been: No Immunizations Up To Date Influenza Vaccine Up-to-Date: Yes; Up-to-Date First/Initial COVID19 Vaccinat: 2020 Second COVID19 Vaccination Ludwig: 2020 Third COVID19 Vaccination Date: 2020 COVID19 Vaccine Forensic Anthropologist: LAURA Seasonal Allergies Seasonal Allergies: Yes (MILD) Past Medical History Surgery/Hospitalization HX: A-FIB, HIGH CHOLESTEROL, CARDIAC STENT Surgeries: Yes Coronary Stent, Eye Surgery Respiratory: Yes (ASTHMA A CHILD) COPD Cardiac: Yes Atrial Fibrillation, Coronary Artery Disease, High Cholesterol, Hypertension Neurological: No Vertigo Sexually Transmitted Disease: No HIV/AIDS: No Genitourinary: No Gastrointestinal: No Musculoskeletal: No Endocrine: No HEENT: Yes (Excessive cerumen and skin irritation of the ears, vertigo) Loss of Vision: Denies Hearing Impairment: Denies Cancer: No Psychosocial: No Integumentary: No Blood Disorders: No Adverse Reaction/Blood Tranf: No (N/A) Family Medical History No Pertinent Family Hx Physical Exam Vital Signs Vital Signs - First Documented 09/11/21 13:45 Temp 36.3 Pulse 51 Resp 16 B/P (MAP) 143/73 (96) Pulse Ox 95 O2 Delivery Room Air Capillary Refill : Less Than 3 Seconds Height, Weight, BMI Height: 5'9.00" Weight: 187lbs. oz. 84.634665dt; 29.00 BMI Method:Stated General Appearance: WD/WN, no apparent distress HEENT: PERRL/EOMI, normal ENT inspection, pharynx normal, other (TMs mostly obscured by excessive cerumen. 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, no motor/sensory deficits, alert, normal mood/affect, oriented x 3, other (No nystagmus) Crainal Nerves: normal hearing, normal speech, PERRL Coordination/Gait: normal finger to nose, normal gait Motor/Sensory: no motor deficit, no sensory deficit Skin: normal color, warm/dry Progress/Results/Core Measures Results/Orders Vital Signs/I&O 09/11/21 13:45 Temp 36.3 Pulse 51 Resp 16 B/P (MAP) 143/73 (96) Pulse Ox 95 O2 Delivery Room Air Blood Pressure Mean: 96 Progress Progress Note : Progress Note Patient's symptoms seem to be classic vertigo with a spinning sensation only upon certain head movements that fatigues and resolves at rest. He does not have any other neurologic deficits reported or measurable on exam. Symptoms have been present for several days and have improved rather than worsened. I therefore do not feel compelled to pursue any further work-up. We discussed treatment options including continued Pj maneuver at home, physical therapy for vestibular exercises, meclizine, antiemetics, etc. He declined any prescriptions. See discharge instructions for further discussion. Departure Impression Primary Impression: Vertigo Additional Impression: Excessive cerumen in both ear canals Disposition: HOME, SELF-CARE Condition: Improved Departure-Patient Inst. Decision time for Depature: 16:34 Referrals: CELINE GAMBOA MD (PCP/Family) Primary Care Physician Patient Instructions: Ear Wax Impaction ED, Vertigo ED Add. Discharge Instructions: If the Pj maneuver is helpful, you may repeat that as many times as you would like to treat your vertigo. If you would like to calm of the symptoms with medication, you may try meclizine purchased [id number]. Return to the emergency room promptly or call 911 if you develop vertigo plus any other notable neurologic deficit such as speech difficulty, confusion, vision change, numbness or weakness of extremities, imbalance, etc. For your excessive earwax, you may use [id number] earwax removal products. You may also use a couple drops of baby oil or coconut oil a couple times a week to help loosen the wax. Colace stool softener may also be used on occasion for excessive earwax. You can puncture or cut the gelcap and drip the solution into the ear. This will help soften the wax. All discharge instructions reviewed with patient and/or family. Voiced understanding. Copy Copies To 1: CELINE GAMBOA MD Copies To 2: MADELINE LEAL MD, JOSHUA T MD Sep 11, 2021 16:37
[2021-09-11 16:46] VITALS: BP 121/69
== END 2021-09-11 16:46 | disposition home or self-care (01) ==
LOC: EDUNIT# 13:24 → ER 13:25
DX: R42 Dizziness and giddiness (principal); H61.23 Impacted cerumen, bilateral
CPT/HCPCS: 99281

== ENCOUNTER → 2022-04-14 | Outpatient (CLI) | payer BC | LOC: CARD 10:08 | PROVIDERS: ATTEND Internal Medicine Cardiovascular Disease | DX: I11.9 Hypertensive heart disease without heart failure (principal); I25.10 Atherosclerotic heart disease of native coronary artery without angina pectoris | CPT/HCPCS: 93306 ==

== ENCOUNTER 2022-08-06 07:59 | Outpatient (CLI) | payer BC | END 2022-08-06 08:30 | LOC: SLEEP 07:59 | PROVIDERS: ATTEND Internal Medicine Cardiovascular Disease | DX: G47.33 Obstructive sleep apnea (adult) (pediatric) (principal) | CPT/HCPCS: G0399 ==

== ENCOUNTER 2022-09-23 20:42 | Outpatient (CLI) | payer BC | END 2022-09-24 06:33 | disposition home or self-care (01) | LOC: SLEEP 20:42 | PROVIDERS: ATTEND Otolaryngology Otolaryngology/Facial Plastic Surgery | DX: G47.33 Obstructive sleep apnea (adult) (pediatric) (principal) | CPT/HCPCS: 95811 ==

== ENCOUNTER 2022-12-01 12:05 | Inpatient (IN) | payer BC ==
[~2022-12-01] VITALS: Ht 175 cm; Wt 94.0 kg
--- NOTE | 2022-12-01 12:55 | ED Abdominal Pain ---
General Chief Complaint: Abdominal/GI Problems Stated Complaint: LOWER ABD PAIN Nursing Triage Note: PT AMB TO RM 2 WITH C/O LOW ABD PAIN SINCE TUESDAY. PT IS UNABLE TO EAT. PT STATES HE GETS RELIEF FROM 800MG IBUPROFEN. PT STATES URINE HAS BEEN DARK AND IT HURTS TO URINATE Source of Information: Patient Exam Limitations: No Limitations (BEE LORENZO) History of Present Illness Date Seen by Provider: Dec 01, 2022 Time Seen by Provider: 12:40 Initial Comments 72yo M with h/o diverticulosis and recent heart ablation for afib presents to the ED with c/o new onset lower abd pain, dark urine, and dysuria that started Tuesday evening (11/27). Pt states that Tuesday evening he experienced new onset of suprapubic pressure/pain, dysuria, and dark urine while driving back from [place]. Pt states that he thought he was dehydrated so began drinking more fluids which resolved his dysuria and dark urine but his abd pain worsened. Pt states that abd pain spread to entire lower abd and became so severe that he was unable to leave bed from Tuesday to today. Pt states that pain was so severe with movement that it caused him to vomit multiple times on Tuesday. Pt describes pain as a "low dull ache/pressure" and rates it a 5/10 at rest and 10/10 with movement. Pt denies pain worsening with PO intake. Pt says that from Tuesday to today he was only eating a piece of bread with his medications due to decreased appetite secondary to pain. Pt has been taking 600mg ibuprofen every 6-8 hours with relief. Today, pt says that his urine has become dark again and the dysuria returned prompting him to come to the ED for further evaluation. Pt continues to urinate and says that his output has not decreased. Pt notes that has been experiencing loose stools but states that this is not uncommon for him. LBM was today and most recent colonoscopy was 3 years ago and was only remarkable for diverticulosis. Pt recently had a heart ablation and is taking Xarelto and low dose ASA daily. Pt denies nausea, recent vomiting, fevers, chills, CP, SOB, lightheadedness, hematuria, blood in stools or melena, and h/o UTIs or kidney stones. Timing/Duration: 3-4 Days Severity/Quality: Severe, Aching, Dull Location: RLQ, LLQ, Suprapubic Radiation: No Radiation Activities at Onset: None Modifying Factors: Improves With Analgesics (relieves), Improves With Movement (exacerbates) Associated Symptoms: Nausea/Vomiting (vomiting secondary to pain no nausea) (BEE LORENZO) Allergies and Home Medications Allergies Coded Allergies: codeine (Verified Allergy, Mild, ITCHING, 09/13/19) Sulfa (Sulfonamide Antibiotics) (Verified Allergy, Unknown, FROM CHILDHOOD, 09/13/19) Patient Home Medication List Home Medication List Reviewed: Yes (BEE LORENZO) Home Medication List Reviewed: Yes (HUBER SHEA MD) Aspirin (Aspirin EC) 81 Mg Tablet.dr, 81 MG PO HS, (Reported) Entered as Reported by: LINDSEY REYES on 12/02/221299 Last Action: Held Colchicine (Colchicine) 0.6 Mg Tablet, 0.6 MG PO DAILY, (Reported) Entered as Reported by: LINDSEY REYES on 12/02/221299 Last Action: Continued Dronedarone HCl (Multaq) 400 Mg Tablet, 400 MG PO BID, (Reported) Entered as Reported by: LINDSEY REYES on 12/02/22 1300 Last Action: Continued Ibuprofen (Ibuprofen) 200 Mg Tablet, 600 MG PO Q8H PRN for PAIN-MILD (1-4), (Reported) Entered as Reported by: LINDSEY REYES on 12/02/221299 Last Action: Continued Irbesartan/Hydrochlorothiazide (Irbesartan-Hctz 150-12.5 mg Tb) 150 Mg-12.5 Mg Tablet, 1 EA PO DAILY, (Reported) Entered as Reported by: LINDSEY REYES on 12/02/22 1300 Last Action: Held L.acidoph & Paracasei,B.lactis (Probiotic) 1 Each Capsule, 1 EACH PO DAILY, (Reported) Entered as Reported by: LINDSEY REYES on 09/16/20 1326 Last Action: Held Multivitamin (Multivitamin) 1 Each Tablet, 1 EACH PO BID, (Reported) Entered as Reported by: BIRD HERNANDEZ on 09/13/19 1134 Last Action: Held [place]-3 Fatty Acids/Fish Oil (Fish Oil 1,200 mg Softgel) 360 Mg-1,200 Mg Capsule, 2 EACH PO BID, (Reported) Entered as Reported by: BIRD HERNANDEZ on 09/13/19 1134 Last Action: Held Pantoprazole Sodium (Pantoprazole Sodium) 40 Mg Tablet., 40 MG PO BID, (Report ed) Entered as Reported by: LINDSEY REYES on 12/02/221299 Last Action: Continued Rivaroxaban (Xarelto) 20 Mg Tablet, 20 MG PO DAILY, (Reported) Entered as Reported by: LINDSEY REYES on 12/02/22 1300 Last Action: Held Rosuvastatin Calcium (Rosuvastatin Calcium) 40 Mg Tablet, 40 MG PO HS, (Reported) Entered as Reported by: LINDSEY REYES on 12/02/221299 Last Action: Converted Sertraline HCl (Sertraline HCl) 25 Mg Tablet, 25 MG PO HS, (Reported) Entered as Reported by: LINDSEY REYES on 12/02/221299 Last Action: Converted Sucralfate (Sucralfate) 1 Gram Tablet, 1 GM PO BIDAC, (Reported) Entered as Reported by: LINDSEY REYES on 12/02/221299 Last Action: Continued Ubidecarenone (Coq-10) 100 Mg Capsule, 100 MG PO HS, (Reported) Entered as Reported by: LINDSEY REYES on 09/16/20 1326 Last Action: Held Discontinued Medications Apixaban (Eliquis) 5 Mg Tablet, 5 MG PO BID, (Reported) Discontinued Reason: No Longer Taking Entered as Reported by: CHARLETTE CHOU on 12/10/20 110 Last Action: Discontinued Aspirin (Aspirin EC) 81 Mg Tablet., 81 MG PO DAILY Discontinued Reason: No Longer Taking Prescribed by: ANMOL LIU on 12/11/20617 Last Action: Discontinued Clopidogrel Bisulfate (Clopidogrel) 75 Mg Tablet, 75 MG PO DAILY Discontinued Reason: No Longer Taking Prescribed by: ANMOL LIU on 12/11/20617 Last Action: Discontinued Dronedarone HCl (Multaq) 400 Mg Tablet, 400 MG PO BID, (Reported) Discontinued Reason: No Longer Taking Entered as Reported by: CHARLETTE CHOU on 12/10/20 1105 Last Action: Discontinued Escitalopram Oxalate (Lexapro) 10 Mg Tablet, 10 MG PO HS, (Reported) Discontinued Reason: No Longer Taking Entered as Reported by: CHARLETTE CHOU on 12/10/20 1105 Last Action: Discontinued Irbesartan (Irbesartan) 150 Mg Tablet, 150 MG PO HS, (Reported) Discontinued Reason: No Longer Taking Entered as Reported by: BIRD HERNANDEZ on 09/13/19 1134 Last Action: Discontinued Pantoprazole Sodium (Protonix) 40 Mg Granpkt.dr, 40 MG PO DAILY Discontinued Reason: No Longer Taking Prescribed by: ANMOL LIU on 12/11/20 0618 Last Action: Discontinued Simvastatin (Simvastatin) 40 Mg Tablet, 40 MG PO HS, (Reported) Discontinued Reason: No Longer Taking Entered as Reported by: BIRD HERNANDEZ on 09/13/19 1134 Last Action: Discontinued Review of Systems Review of Systems Constitutional: no symptoms reported; No chills, No fever EENTM: No Symptoms Reported Respiratory: No Symptoms Reported Cardiovascular: No Symptoms Reported Gastrointestinal: Abdominal Pain (lower quadrant pain), Poor Appetite, Vomiting (secondary to pain) Genitourinary: Burning; Denies Hematuria Musculoskeletal: no symptoms reported Skin: no symptoms reported Psychiatric/Neurological: No Symptoms Reported Endocrine: No Symptoms Reported Hematologic/Lymphatic: No Symptoms Reported (BEE LORENZO) All Other Systems Reviewed Negative Unless Noted: Yes (BEE LORENZO) Past Ehjqddk-Tfle[place]-Gnqhcv Hx Patient Social History Tobacco Use?: No Substance use?: No Alcohol Use?: Yes Alcohol type: Beer Pt feels they are or have been: No (BEE LORENZO) Immunizations Up To Date First/Initial COVID19 Vaccinat: 2020 Second COVID19 Vaccination Ludwig: 2020 Third COVID19 Vaccination Date: 2020 (BEE LORENZO) Seasonal Allergies Seasonal Allergies: Yes (MILD) (BEE LORENZO) Past Medical History Surgery/Hospitalization HX: A-FIB, HIGH CHOLESTEROL, CARDIAC STENT, DIVERTICULITIS, ABLASION Surgeries: Yes Cardiac (ablation), Coronary Stent, Eye Surgery Respiratory: Yes (ASTHMA A CHILD) COPD Cardiac: Yes Atrial Fibrillation, Coronary Artery Disease, High Cholesterol, Hypertension Neurological: Yes Vertigo Sexually Transmitted Disease: No HIV/AIDS: No Genitourinary: No Gastrointestinal: Yes Diverticulosis Musculoskeletal: No Endocrine: No HEENT: Yes (Excessive cerumen and skin irritation of the ears, vertigo) Loss of Vision: Denies Hearing Impairment: Denies Cancer: Yes Skin (BCC) Did You Recieve Any Treatments: No What Type of Treatment Did You: Surgical Intervention Psychosocial: Yes Anxiety Integumentary: No Blood Disorders: No Adverse Reaction/Blood Tranf: No (N/A) (BEE LORENZO) Family Medical History No Pertinent Family Hx (BEE LORENZO) Physical Exam Vital Signs Vital Signs - First Documented 12/01/22 12:16 Temp 37.6 Pulse 69 Resp 14 B/P (MAP) 141/67 (91) Pulse Ox 97 O2 Delivery Room Air (HUBER SHEA MD) Vital Signs Capillary Refill : (BEE LORENZO) Height/Weight/BMI Height: 5'9.00" Weight: 187lbs. oz. 84.155884iw; 29.00 BMI Method:Stated General Appearance: WD/WN, no apparent distress HEENT: PERRL/EOMI Respiratory: lungs clear, normal breath sounds, no respiratory distress, no accessory muscle use Cardiovascular: regular rate, rhythm, no murmur Gastrointestinal: normal bowel sounds, soft, guarding (voluntary); No rebound; tenderness (tenderness to palpation in across entire lower abd, pain seems to be worse in RLQ and suprapubic) Extremities: no pedal edema, no calf tenderness Back: normal inspection, no CVA tenderness, no vertebral tenderness Neurologic/Psychiatric: alert, normal mood/affect, oriented x 3 Skin: normal color, warm/dry Lymphatic: no adenopathy (BEE LORENZO) Progress/Results/Core Measures Results/Orders Lab Results Laboratory Tests Test 12/01/22 13:02 12/01/22 14:12 Range/Units Urine Color YELLOW Urine Clarity CLEAR Urine pH 6.0 5-9 Urine Specific [place] 1.025 H 1.016-1.022 Urine Protein 2+ H NEGATIVE Urine Glucose (UA) NEGATIVE NEGATIVE Urine Ketones NEGATIVE NEGATIVE Urine Nitrite NEGATIVE NEGATIVE Urine Bilirubin 1+ H NEGATIVE Urine Urobilinogen 1.0 < = 1.0 MG/DL Urine Leukocyte Esterase NEGATIVE NEGATIVE Urine RBC (Auto) 2+ H NEGATIVE Urine RBC 5-10 H /HPF Urine WBC NONE /HPF Urine Squamous Epithelial Cells NONE /HPF Urine Crystals NONE /LPF Urine Bacteria NEGATIVE /HPF Urine Casts NONE /LPF Urine Mucus SMALL H /LPF Urine Culture Indicated NO White Blood Count 18.1 H 4.3-11.0 10^3/uL Red Blood Count 4.13 L 4.30-5.52 10^6/uL Hemoglobin 13.7 13.3-17.7 g/dL Hematocrit 39 L 40-54 % Mean Corpuscular Volume 95 80-99 fL Mean Corpuscular Hemoglobin 33 25-34 pg Mean Corpuscular Hemoglobin Concent 35 32-36 g/dL Red Cell Distribution Width 12.8 10.0-14.5 % Platelet Count 278 130-400 10^3/uL Mean Platelet Volume 10.6 9.0-12.2 fL Immature Granulocyte % (Auto) 1 % Neutrophils (%) (Auto) 85 H 42-75 % Lymphocytes (%) (Auto) 6 L 12-44 % Monocytes (%) (Auto) 8 0-12 % Eosinophils (%) (Auto) 0 0-10 % Basophils (%) (Auto) 0 0-10 % Neutrophils # (Auto) 15.4 H 1.8-7.8 10^3/uL Lymphocytes # (Auto) 1.2 1.0-4.0 10^3/uL Monocytes # (Auto) 1.4 H 0.0-1.0 10^3/uL Eosinophils # (Auto) 0.0 0.0-0.3 10^3/uL Basophils # (Auto) 0.0 0.0-0.1 10^3/uL Immature Granulocyte # (Auto) 0.1 0.0-0.1 10^3/uL Neutrophils % (Manual) 82 % Lymphocytes % (Manual) 9 % Monocytes % (Manual) 8 % Band Neutrophils 1 % Blood Morphology Comment NORMAL Sodium Level 138 135-145 MMOL/L Potassium Level 3.4 L 3.6-5.0 MMOL/L Chloride Level 101 98-107 MMOL/L Carbon Dioxide Level 24 21-32 MMOL/L Anion Gap 13 5-14 MMOL/L Blood Urea Nitrogen 25 H 7-18 MG/DL Creatinine 1.23 0.60-1.30 MG/DL Estimat Glomerular Filtration Rate 63 BUN/Creatinine Ratio 20 Glucose Level 122 H 70-105 MG/DL Calcium Level 8.8 8.5-10.1 MG/DL Corrected Calcium 8.9 8.5-10.1 MG/DL Total Bilirubin 1.4 H 0.1-1.0 MG/DL Aspartate Amino Transf (AST/SGOT) 30 5-34 U/L Alanine Aminotransferase (ALT/SGPT) 39 0-55 U/L Alkaline Phosphatase 50 40-136 U/L Total Protein 6.9 6.4-8.2 GM/DL Albumin 3.9 3.2-4.5 GM/DL (HUBER SHEA MD) My Orders Orders - HUBER SHEA MD Bladder Scan (12/01/22 12:50) Ed Iv/Invasive Line Start (12/01/22 13:17) Cbc With Automated Diff (12/01/22 13:17) Comprehensive Metabolic Panel (12/01/22 13:17) Ct Abdomen/Pelvis W (12/01/22 13:17) Ns Iv 1000 Ml (Ns Iv 1000 Ml) (12/01/22 13:17) Manual Differential (12/01/22 14:12) Iohexol Injection (Omnipaque 350 Mg/Ml 1 (12/01/22 15:30) Ns (Ivpb) 100 Ml (Sodium Chloride 0.9% 1 (12/01/22 15:30) Ciprofloxacin Iv 400mg/200ml (Ciprofloxa (12/01/22 16:15) Metronidazole 500mg/100ml Ivpb (Metronid (12/01/22 16:15) (HUBER SHEA MD) Medications Given in ED (HUBER SHEA MD) Vital Signs/I&O 12/01/22 12/01/22 12:16 18:47 Temp 37.6 Pulse 69 63 Resp 14 16 B/P (MAP) 141/67 (91) 134/69 Pulse Ox 97 93 O2 Delivery Room Air Room Air (HUBER SHEA MD) Blood Pressure Mean: 91 Progress Progress Note : Time: 17:00 Progress Note I have reviewed the medical students documentation and agree. My evaluation today includes physical exam, CBC, CMP, UA and CT abd and pelvis with IV contrast. Pertinent phys exam includes, WDWN male with stable VS, afebrile - his heart is regular, lungs are clear. He has quiet bowel sounds and is very tender to palpation in the lower abdomen, point tenderness to the RLQ without significant rebound. ddx based on H&P - acute appendicitis, pyelonephritis, colitis Labs independently reviewed and interpreted by me. CT read by radiologist. HIs cbc shows a WBC elevated at 18.1 with normal H&H and platelets. Chem is generally WNL with minimally elevated creatinine at 1.23. UA shows hematuria and a little increased protein without infection. CT per radiologist demonstra med perforated diverticulitis with developing abscess. Patient is treated in the ED with NOrmal saline x1 liter. he declined the need for pain or nausea medications. He was given IV antibiotics - cipro and flagyl. Case was discussed with Dr Cunha - general surgery - who accepted patient for admission and requested hospitalist consult - I spoke with Dr Concepcion who was agreeable. No deterioration in patient's condition during ED stay. He was made aware of findings and plan of care. All questions were sought and answered. (HUBER SHEA MD) Diagnostic Imaging Diagonstic Imaging: CT Comments [facility]. [place], [place] NAME: [facility] REC#: [id number] PT STATUS: REG ER : 1950 PHYSICIAN: HUBER SHEA MD ADMIT DATE: 12/01/22/ER Signed Date of Exam:12/01/22 CT ABDOMEN/PELVIS W EXAMINATION: CT abdomen and pelvis with intravenous contrast. TECHNIQUE: Multiple contiguous axial images were obtained through the abdomen and pelvis after the uneventful administration of intravenous contrast. All CT scans use one or more of the following dose optimizing techniques: automated exposure control, MA and/or KvP adjustment based on patient size and exam type or iterative reconstruction. HISTORY: severe RLQ abdominal pain COMPARISON: 07/28/2018. FINDINGS: Lung bases: Bibasilar dependent atelectasis. Solid organs: The liver is normal without focal lesion. The gallbladder is normal. There is no biliary ductal dilation. Pancreas is normal. Spleen is normal. Adrenal glands are normal. The kidneys are normal without hydronephrosis. Bowel: There is abnormal wall thickening and inflammatory stranding seen within the distal ileum in the right lower quadrant. This is adjacent to an area of sigmoid colon wall thickening and inflammatory stranding with numerous diverticula present. The appendix is normal. Peritoneum: There is mild free fluid within the right lower quadrant and lower abdomen. There is a possible developing air-fluid collection seen adjacent to the small bowel and sigmoid colon measuring 1.6 x 3.6 cm. No suspicious lymphadenopathy. Vasculature: Calcification of the aorta without aneurysm. Musculoskeletal: No suspicious osseous lesion or compression fracture. Pelvis: The prostate gland is normal. There is mild wall thickening in the superior bladder near the area of inflammation of the sigmoid colon, likely reactive. IMPRESSION: 1. Findings most likely suggestive of perforated sigmoid diverticulitis with mild free air and free fluid in the right lower quadrant. There may be developing fluid collection abutting the small bowel and sigmoid colon measuring up to 1.6 x 3.6 cm. 2. Likely reactive inflammation and wall thickening of the distal ileum within the right lower quadrant. Less likely differential could include primary infection or inflammation of the small bowel with perforation and reactive wall thickening of the sigmoid colon. 3. Likely reactive wall thickening of the superior wall of the urinary bladder. Recommend correlation with urinalysis. Dictated by: Dictated on workstation # [id number] Dict: 12/01/22 1544 Trans: 12/01/22 1557 [id number] Interpreted by: FELICE LOCKWOOD DO Electronically signed by: FELICE LOCKWOOD DO 12/01/22 1557 (HUBER SHEA MD) Departure Communication (Admissions) Time/Spoke to Admitting Phy: 16:[address] Cunha (general surgery) Time/Spoke to Consulting Phy: 16:[address] Concepcion (hospitalist) (HUBER SHEA MD) Impression Primary Impression: Perforation of sigmoid colon due to diverticulitis Disposition: ADMITTED INPATIENT Condition: Stable Admissions Decision to Admit Reason: Admit from ER (General) Decision to Admit/Date: Dec 01, 2022 Time/Decision to Admit Time: 17:09 (HUBER SHEA MD) Departure-Patient Inst. Referrals: CELINE GAMBOA MD (PCP/Family) Primary Care Physician Verification and Attestation of Medical Student E/M Service A medical student performed and documented this service in my presence. I reviewed and verified all information documented by the medical student and made modifications to such information, when appropriate. I personally performed the physical exam and medical decision making. Huber Shea, Dec 05, 2022,07:13 (HUBER SHEA MD) Copy Copies To 1: CELINE GAMBOA MD Copies To 2: ROCIO CUNHA TAYLOR Dec 01, 2022 12:55 HUBER SHEA MD Dec 01, 2022 17:12
[2022-12-01 13:15] LABS: CLARITY,URINE CLEAR; COLOR,URINE YELLOW
[2022-12-01 13:16] LABS: BILIRUBIN,URINE 1+ (NEGATIVE); GLUCOSE, URINE (UA) NEGATIVE (NEGATIVE); KETONES,URINE NEGATIVE (NEGATIVE); LEUKOCYTE ESTERASE ,URINE NEGATIVE (NEGATIVE); NITRITE,URINE NEGATIVE (NEGATIVE); PROTEIN,URINE 2+ (NEGATIVE)
[2022-12-01] MEDS ORDERED: NS IV 1000 ML 1,000 ML IV STA (13:17)
[2022-12-01 13:18] LABS: BACTERIA,URINE NEGATIVE /HPF
[2022-12-01] MEDS ORDERED: NS 100 ML (IVPB) BAG IV ONE ×2 (13:30→15:30)
[2022-12-01] MEDS ORDERED: IOHEXOL 350 MG/ML 100 ML (OMNIPAQUE 350) VIAL IV ONE ×2 (13:30→15:30)
[2022-12-01] MEDS ORDERED: HOLD METFORMIN - RECEIVED CONTRAST 20 ML VIAL IV SCH (13:30)
[2022-12-01 15:00] LABS: BASOPHILS % (AUTO) 0 % (0-10); EOSINOPHILS % (AUTO) 0 % (0-10); HEMATOCRIT 39 % (40-54); HEMOGLOBIN 13.7 g/dL (13.3-17.7); LYMPHOCYTES # (AUTO) 1.2 10^3/uL (1.0-4.0); LYMPHOCYTES % (AUTO) 6 % (12-44); MEAN CORPUSCULAR HEMOGLOBIN 33 pg (25-34); MEAN CORPUSCULAR HGB CONC 35 g/dL (32-36); MEAN CORPUSCULAR VOLUME 95 fL (80-99); MEAN PLATELET VOLUME 10.6 fL (9.0-12.2); MONOCYTES # (AUTO) 1.4 10^3/uL (0.0-1.0); MONOCYTES % (AUTO) 8 % (0-12); NEUTROPHILS # (AUTO) 15.4 10^3/uL (1.8-7.8); NEUTROPHILS % (AUTO) 85 % (42-75); PLATELET COUNT 278 10^3/uL (130-400); WHITE BLOOD COUNT 18.1 10^3/uL (4.3-11.0)
[2022-12-01 15:15] LABS: ALBUMIN 3.9 GM/DL (3.2-4.5); BILIRUBIN,TOTAL 1.4 MG/DL (0.1-1.0); CALCIUM 8.8 MG/DL (8.5-10.1); CREATININE SERUM 1.23 MG/DL (0.60-1.30); POTASSIUM 3.4 MMOL/L (3.6-5.0); TOTAL PROTEIN 6.9 GM/DL (6.4-8.2)
[2022-12-01 15:51] LABS: BAND NEUTROPHILS 1 %; LYMPHOCYTES % (MANUAL) 9 %; MONOCYTES % (MANUAL) 8 %; NEUTROPHILS % (MANUAL) 82 %; RBC MORPH NORMAL
--- NOTE | 2022-12-01 15:55 | Diagnostic Imaging Report ---
EXAMINATION: CT abdomen and pelvis with intravenous contrast. TECHNIQUE: Multiple contiguous axial images were obtained through the abdomen and pelvis after the uneventful administration of intravenous contrast. All CT scans use one or more of the following dose optimizing techniques: automated exposure control, MA and/or KvP adjustment based on patient size and exam type or iterative reconstruction. HISTORY: severe RLQ abdominal pain COMPARISON: 07/28/2018. FINDINGS: Lung bases: Bibasilar dependent atelectasis. Solid organs: The liver is normal without focal lesion. The gallbladder is normal. There is no biliary ductal dilation. Pancreas is normal. Spleen is normal. Adrenal glands are normal. The kidneys are normal without hydronephrosis. Bowel: There is abnormal wall thickening and inflammatory stranding seen within the distal ileum in the right lower quadrant. This is adjacent to an area of sigmoid colon wall thickening and inflammatory stranding with numerous diverticula present. The appendix is normal. Peritoneum: There is mild free fluid within the right lower quadrant and lower abdomen. There is a possible developing air-fluid collection seen adjacent to the small bowel and sigmoid colon measuring 1.6 x 3.6 cm. No suspicious lymphadenopathy. Vasculature: Calcification of the aorta without aneurysm. Musculoskeletal: No suspicious osseous lesion or compression fracture. Pelvis: The prostate gland is normal. There is mild wall thickening in the superior bladder near the area of inflammation of the sigmoid colon, likely reactive. IMPRESSION: 1. Findings most likely suggestive of perforated sigmoid diverticulitis with mild free air and free fluid in the right lower quadrant. There may be developing fluid collection abutting the small bowel and sigmoid colon measuring up to 1.6 x 3.6 cm. 2. Likely reactive inflammation and wall thickening of the distal ileum within the right lower quadrant. Less likely differential could include primary infection or inflammation of the small bowel with perforation and reactive wall thickening of the sigmoid colon. 3. Likely reactive wall thickening of the superior wall of the urinary bladder. Recommend correlation with urinalysis. Dictated by: Dictated on workstation # [id number]
[2022-12-01] MEDS ORDERED: CIPROFLOXACIN IV 400MG/200ML 200 ML IV ONE (16:15)
[2022-12-01] MEDS ORDERED: metroNIDAZOLE 500MG/100ML IVPB 100 ML IV ONE (16:15)
--- NOTE | 2022-12-01 17:10 | Consultation - Surgery ---
HAMZAH MCCARTHY 12/01/22 1710: History of Present Illness History of Present Illness Patient Consulted On(yeimy/time) 12/01/22 17:05 Date Seen by Provider: Dec 01, 2022 Time Seen by Provider: 17:05 Reason for Visit: abd pain History of Present Illness Pt is a 72 y/o male presenting to the ER with 4 days hx of abd pain with x3 episodes of non bloody emesis. He reports that 4 days ago he noted pain in his groin when urinating and dark urine in the toilet. At the time he thought he may have a bladder infection. He presented to the ER after returning home from a trip from [facility]. He reports that his abd is diffusely tender but it is worse in the RLQ rating a 6-7/10. He states that movement makes his pain worse and that when he has bowel movements it makes him vomit. He reports taking ibuprofen 600 mg which improved his pain. Pt states that he has a past hx of afib with an ablation. Past hx of CAD with x1 stent placed. Pt states that he is currently on 81 mg ASA and Xarelto. He noted past hx of diverticulosis on past colonoscopy x3 years ago. CT scan done 12/01/22 with findings most likely suggestive of perforated sigmoid d iverticulitis with mild free air and free fluid in the right lower quadrant. There may be developing fluid collection abutting the small bowel and sigmoid colon measuring up to 1.6 x 3.6 cm. Likely reactive inflammation and wall thickening of the distal ileum within the right lower quadrant. Less likely differential could include primary infection or inflammation of the small bowel with perforation and reactive wall thickening of the sigmoid colon. Likely reactive wall thickening of the superior wall of the urinary bladder. Recommend correlation with urinalysis. Consult requested by Dr. Atkins. Allergies and Home Medications Allergies Coded Allergies: codeine (Verified Allergy, Mild, ITCHING, 09/13/19) Sulfa (Sulfonamide Antibiotics) (Verified Allergy, Unknown, FROM CHILDHOOD, 09/13/19) Patient Home Medication List Home Medication List Reviewed: Yes Apixaban (Eliquis) 5 Mg Tablet, 5 MG PO BID, (Reported) Entered as Reported by: CHARLETTE CHOU on 12/10/20 1100 Aspirin (Aspirin EC) 81 Mg Tablet., 81 MG PO DAILY Prescribed by: ANMOL LIU on 12/11/20617 Clopidogrel Bisulfate (Clopidogrel) 75 Mg Tablet, 75 MG PO DAILY Prescribed by: ANMOL LIU on 12/11/20617 Dronedarone HCl (Multaq) 400 Mg Tablet, 400 MG PO BID, (Reported) Entered as Reported by: CHARLETTE CHOU on 12/10/20 110 Escitalopram Oxalate (Lexapro) 10 Mg Tablet, 10 MG PO HS, (Reported) Entered as Reported by: CHRALETTE CHOU on 12/10/20 110 Irbesartan (Irbesartan) 150 Mg Tablet, 150 MG PO HS, (Reported) Entered as Reported by: BIRD HERNANDEZ on 09/13/19 1134 L.acidoph & Paracasei,B.lactis (Probiotic) 1 Each Capsule, 1 EACH PO DAILY, (Reported) Entered as Reported by: LINDSEY REYES on 09/16/20 1326 Multivitamin (Multivitamin) 1 Each Tablet, 1 EACH PO BID, (Reported) Entered as Reported by: BIRD HERNANDEZ on 09/13/19 1134 [place]-3 Fatty Acids/Fish Oil (Fish Oil 1,200 mg Softgel) 1 Each Capsule, 1 EACH PO DAILY, (Reported) Entered as Reported by: BIRD HERNANDEZ on 09/13/19 1134 Pantoprazole Sodium (Protonix) 40 Mg Granpkt.dr, 40 MG PO DAILY Prescribed by: ANMOL LIU on 12/11/20617 Simvastatin (Simvastatin) 40 Mg Tablet, 40 MG PO HS, (Reported) Entered as Reported by: BIRD HERNANDEZ on 09/13/19 1134 Ubidecarenone (Coq-10) 100 Mg Capsule, 100 MG PO HS, (Reported) Entered as Reported by: LINDSEY REYES on 09/16/20 1326 Past Cmxzwqa-Ueqlso-Firkzg Hx Patient Social History Drug of Choice: Denies Smoking Status: Never a Smoker 2nd Hand Smoke Exposure: No Recent Hopitalizations: No Alcohol Use?: Yes (6 beers on weekends on average) Immunizations Up To Date Date of Pneumonia Vaccine: Jan 01, 2019 Date of Influenza Vaccine: Jan 01, 2019 Seasonal Allergies Seasonal Allergies: Yes (MILD) Surgeries History of Surgeries: Yes Surgeries: Cardiac (ablation), Coronary Stent (x1), Eye Surgery Respiratory History of Respiratory Disorde: Yes (ASTHMA A CHILD) Respiratory Disorders: COPD Cardiovascular History of Cardiac Disorders: Yes Cardiac Disorders: Atrial Fibrillation, Coronary Artery Disease, High Cholesterol, Hypertension Neurological History of Neurological Disord: Yes Neurological Disorders: Vertigo Reproductive System Sexually Transmitted Disease: No HIV/AIDS: No Genitourinary History of Genitourinary Disor: No Gastrointestinal History of Gastrointestinal Di: Yes Gastrointestinal Disorders: Diverticulosis Musculoskeletal History of Musculoskeletal Dis: No Endocrine History of Endocrine Disorders: No HEENT History of HEENT Disorders: Yes (Excessive cerumen and skin irritation of the ears, vertigo) Loss of Vision: Denies Hearing Impairment: Denies Cancer History of Cancer: Yes Cancer: Skin (BCC) Psychosocial History of Psychiatric Problem: Yes Behavioral Health Disorders: Anxiety Integumentary History of Skin or Integumenta: No Blood Transfusions History of Blood Disorders: No Adverse Reaction to a Blood Tr: No (N/A) Family Medical History Significant Family History: No Pertinent Family Hx Review of Systems-General Constitutional: chills; No fever EENTM: No blurred vision, No double vision Respiratory: No cough, No hemoptysis Cardiovascular: No chest pain, No syncope Gastrointestinal: RLQ, abdominal pain (diffuse but worse in RLQ), diarrhea; No hematemesis; vomiting Skin: No change in color, No rash Physical Exam-General Problems Physical Exam Vital Signs Vital Signs - First Documented 12/01/22 12:16 Temp 37.6 Pulse 69 Resp 14 B/P (MAP) 141/67 (91) Pulse Ox 97 O2 Delivery Room Air Capillary Refill : General Appearance: WD/WN, no apparent distress HEENT: PERRL/EOMI, normal ENT inspection Neck: non-tender, normal inspection Respiratory: no respiratory distress, no accessory muscle use Cardiovascular: normal peripheral pulses Peripheral Pulses: 2+ Radial Pulses (R), 2+ Radial Pulses (L) Gastrointestinal: guarding (voluntary), tenderness (diffuse but worse in RLQ) Back: normal inspection, no vertebral tenderness Neurologic/Psychiatric: alert, normal mood/affect, oriented x 3 Skin: normal color, warm/dry Lymphatic: no adenopathy Data Review Labs Laboratory Tests 12/01/22 13:02: Urine Color YELLOW, Urine Clarity CLEAR, Urine pH 6.0, Urine Specific [place] 1 .025H, Urine Protein 2+H, Urine Glucose (UA) NEGATIVE, Urine Ketones NEGATIVE, Urine Nitrite NEGATIVE, Urine Bilirubin 1+H, Urine Urobilinogen 1.0, Urine Leukocyte Esterase NEGATIVE, Urine RBC (Auto) 2+H, Urine RBC 5-10H, Urine WBC NONE, Urine Squamous Epithelial Cells NONE, Urine Crystals NONE, Urine Bacteria NEGATIVE, Urine Casts NONE, Urine Mucus SMALLH, Urine Culture Indicated NO 12/01/22 14:12: White Blood Count 18.1H, Red Blood Count 4.13L, Hemoglobin 13.7, Hematocrit 39L, Mean Corpuscular Volume 95, Mean Corpuscular Hemoglobin 33, Mean Corpuscular Hemoglobin Concent 35, Red Cell Distribution Width 12.8, Platelet Count 278, Mean Platelet Volume 10.6, Immature Granulocyte % (Auto) 1, Neutrophils (%) (Auto) 85H, Lymphocytes (%) (Auto) 6L, Monocytes (%) (Auto) 8, Eosinophils (%) (Auto) 0, Basophils (%) (Auto) 0, Neutrophils # (Auto) 15.4H, Lymphocytes # (Auto) 1.2, Monocytes # (Auto) 1.4H, Eosinophils # (Auto) 0.0, Basophils # (Auto) 0.0, Immature Granulocyte # (Auto) 0.1, Neutrophils % (Manual) 82, L ymphocytes % (Manual) 9, Monocytes % (Manual) 8, Band Neutrophils 1, Blood Morphology Comment NORMAL, Sodium Level 138, Potassium Level 3.4L, Chloride Level 101, Carbon Dioxide Level 24, Anion Gap 13, Blood Urea Nitrogen 25H, Creatinine 1.23, Estimat Glomerular Filtration Rate 63, BUN/Creatinine Ratio 20, Glucose Level 122H, Calcium Level 8.8, Corrected Calcium 8.9, Total Bilirubin 1.4H, Aspartate Amino Transf (AST/SGOT) 30, Alanine Aminotransferase (ALT/SGPT) 39, Alkaline Phosphatase 50, Total Protein 6.9, Albumin 3.9 Assessment/Plan Assessment/Plan Assessment/Plan Small abscess in sigmoid colon with possible perforated sigmoid diverticulitis Afib CAD - CT scan done 12/01/22 with findings most likely suggestive of perforated sigmoid diverticulitis with mild free air and free fluid in the right lower quadrant. There may be developing fluid collection abutting the small bowel and sigmoid colon measuring up to 1.6 x 3.6 cm. Likely reactive inflammation and wall thickening of the distal ileum within the right lower quadrant. Less likely differential could include primary infection or inflammation of the small bowel with perforation and reactive wall thickening of the sigmoid colon. Likely reactive wall thickening of the superior wall of the urinary bladder. - Plan for surgery - Started on metronidazole and ciprofloxacin today -NPO - Consult cardiology in order to hold Xarelto for 24 hrs before surgery ALPHONSEROCIO 12/01/22 1634: History of Present Illness History of Present Illness History of Present Illness Consult requested for diverticulitis with perforation. Patient is a 72 year old male. Been having pain since Tuesday. Achy pain lower abdomen/rlq. Movement makes worse. Laying still makes better. Has been having emesis secondary to pain. Rates at worse about 7/10. Has had episodes before of pain like this brought on by certain foods/nuts. Was just on trip and ate spicy food when this began. Had ct scan that reviewed that appears to be likely diverticulitis with small perforation/early abscess. See Report above. On Xarelto and Baby ASA. Had recent ablation for afib, and notes history of stent in 2020. Allergies and Home Medications Allergies Coded Allergies: codeine (Verified Allergy, Mild, ITCHING, 09/13/19) Sulfa (Sulfonamide Antibiotics) (Verified Allergy, Unknown, FROM CHILDHOOD, 09/13/19) Patient Home Medication List Home Medication List Reviewed: Yes Apixaban (Eliquis) 5 Mg Tablet, 5 MG PO BID, (Reported) Entered as Reported by: CHARLETTE CHOU on 12/10/201104 Aspirin (Aspirin EC) 81 Mg Tablet.dr, 81 MG PO DAILY Prescribed by: ANMOL LIU on 12/11/20617 Clopidogrel Bisulfate (Clopidogrel) 75 Mg Tablet, 75 MG PO DAILY Prescribed by: ANMOL LIU on 12/11/20617 Dronedarone HCl (Multaq) 400 Mg Tablet, 400 MG PO BID, (Reported) Entered as Reported by: CHARLETTE CHOU on 12/10/20 110 Escitalopram Oxalate (Lexapro) 10 Mg Tablet, 10 MG PO HS, (Reported) Entered as Reported by: CHARLETTE CHUO on 12/10/201104 Irbesartan (Irbesartan) 150 Mg Tablet, 150 MG PO HS, (Reported) Entered as Reported by: BIRD HERNANDEZ on 09/13/19 1134 L.acidoph & Paracasei,B.lactis (Probiotic) 1 Each Capsule, 1 EACH PO DAILY, (Reported) Entered as Reported by: LINDSEY REYES on 09/16/20 1326 Multivitamin (Multivitamin) 1 Each Tablet, 1 EACH PO BID, (Reported) Entered as Reported by: BIRD HERNANDEZ on 09/13/19 1134 [place]-3 Fatty Acids/Fish Oil (Fish Oil 1,200 mg Softgel) 1 Each Capsule, 1 EACH PO DAILY, (Reported) Entered as Reported by: BIRD HERNANDEZ on 09/13/19 1134 Pantoprazole Sodium (Protonix) 40 Mg Granpkt.dr, 40 MG PO DAILY Prescribed by: ANMOL LIU on 12/11/20 0618 Simvastatin (Simvastatin) 40 Mg Tablet, 40 MG PO HS, (Reported) Entered as Reported by: BIRD HERNANDEZ on 09/13/19 1134 Ubidecarenone (Coq-10) 100 Mg Capsule, 100 MG PO HS, (Reported) Entered as Reported by: LINDSEY REYES on 09/16/20 1326 Past Rhlffrn-Ilghnq-Lwxunk Hx Patient Social History Smoking Status: Never a Smoker Alcohol Use?: Yes (6 beers on weekends on average) Surgeries Surgeries: Coronary Stent (x1), Eye Surgery Respiratory History of Respiratory Disorde: No Cardiovascular History of Cardiac Disorders: Yes Reviewed Nursing Assessment Reviewed/Agree w Nursing PMH: Yes Family Medical History Significant Family History: No Pertinent Family Hx Review of Systems-General Constitutional: chills; No fever EENTM: No blurred vision, No double vision Respiratory: No cough, No hemoptysis Cardiovascular: No chest pain Gastrointestinal: RLQ, abdominal pain (RLQ), diarrhea; No hematemesis; vomiting Genitourinary: decreased output Musculoskeletal: back pain, joint pain Skin: No change in color All Other Systems Reviewed Negative Unless Noted: Yes (Negative excepted noted.) Physical Exam-General Problems Physical Exam General Appearance: WD/WN, no apparent distress HEENT: PERRL/EOMI, normal ENT inspection Neck: non-tender, normal inspection Respiratory: chest non-tender, no respiratory distress, no accessory muscle use Cardiovascular: regular rate, rhythm, no JVD Gastrointestinal: soft, tenderness (diffuse but worse in RLQ) Rectal: deferred Back: normal inspection, no vertebral tenderness Neurologic/Psychiatric: alert, normal mood/affect, oriented x 3 Skin: normal color, warm/dry Lymphatic: no adenopathy Assessment/Plan Assessment/Plan Assessment/Plan Diffuse abdominal pain diverticulitis with perforation detention anitcoagulation/antiplatlet Hx Afib with recent ablation CAD - CT scan done 12/01/22 with findings most likely suggestive of perforated sigmoid diverticulitis with mild free air and free fluid in the right lower quadrant. There may be developing fluid collection abutting the small bowel and sigmoid colon measuring up to 1.6 x 3.6 cm. Likely reactive inflammation and wall thickening of the distal ileum within the right lower quadrant. Less likely differential could include primary infection or inflammation of the small bowel with perforation and reactive wall thickening of the sigmoid colon. Likely reactive wall thickening of the superior wall of the urinary bladder. Will try conservative management with NPO, Cipro/Flagyl. May need repeat imaging. -NPO -IV fluids Repeat labs in am If worsening would consider exploration Patient understands and agrees with plan Hold anticoagulation/antiplatelts. SCD's dvt prophylaxis. Supervisory-Addendum Brief Verification & Attestation Participated in pt care: history, MDM, physical Personally performed: exam, history, MDM, supervision of care Care discussed with: Medical Student Procedures: n/a Results interpretation: Verified all documentation Verification and Attestation of Medical Student E/M Service A medical student performed and documented this service in my presence. I reviewed and verified all information documented by the medical student and made modifications to such information, when appropriate. I personally performed the physical exam and medical decision making. Rocio Cunha, Dec 01, 2022,23:29 HAMZAH MCCARTHY Dec 01, 2022 17:10 ROCIO CUNHA DO Dec 01, 2022 23:24
[2022-12-01] MEDS ORDERED: NS IV 1000 ML 1,000 ML ONE (19:36)
[2022-12-01] MEDS ORDERED: fentaNYL INJECTION 100 MCG/2 ML VIAL IV PRN (19:45)
[2022-12-01] MEDS ORDERED: ONDANSETRON INJECTION 4 MG/2 ML (SDV) IV PRN (19:45)
[2022-12-01 19:50] VITALS: BP 140/69
[2022-12-01] MEDS: NS IV 1000 ML 1,000 ML IV SCH (19:55)
[2022-12-01 20:03] VITALS: BP 134/69
[2022-12-01] MEDS: metroNIDAZOLE 500 MG/100 ML IVPB (PRE-MIX) IV SCH (22:15)
[2022-12-01] MEDS ORDERED: RT-ALBUTEROL SULF 2.5 MG/3 ML PRE-MIX VIAL INH PRN (23:30)
[2022-12-01 23:34] VITALS: BP 128/62
[2022-12-02] MEDS: fentaNYL INJECTION 100 MCG/2 ML VIAL IV PRN ×6 (01:07→21:05)
[2022-12-02 04:25] VITALS: BP 125/66
[2022-12-02] MEDS: NS IV 1000 ML 1,000 ML IV SCH ×3 (04:58→14:56)
[2022-12-02] MEDS: CIPROFLOXACIN 400 MG/D5W 200 ML (PRE-MIX) IV SCH ×2 (04:58→16:30)
[2022-12-02 05:37] LABS: HEMATOCRIT 35 % (40-54); HEMOGLOBIN 11.9 g/dL (13.3-17.7); MEAN CORPUSCULAR HEMOGLOBIN 33 pg (25-34); MEAN CORPUSCULAR HGB CONC 34 g/dL (32-36); MEAN CORPUSCULAR VOLUME 97 fL (80-99); MEAN PLATELET VOLUME 10.2 fL (9.0-12.2); PLATELET COUNT 239 10^3/uL (130-400); WHITE BLOOD COUNT 16.1 10^3/uL (4.3-11.0)
[2022-12-02] MEDS: metroNIDAZOLE 500 MG/100 ML IVPB (PRE-MIX) IV SCH ×3 (05:37→21:04)
[2022-12-02 05:57] LABS: CALCIUM 8.1 MG/DL (8.5-10.1); CREATININE SERUM 1.09 MG/DL (0.60-1.30); MAGNESIUM 2.1 MG/DL (1.6-2.4); POTASSIUM 3.6 MMOL/L (3.6-5.0)
--- NOTE | 2022-12-02 06:54 | Progress Note - Surgery ---
HAMZAH MCCARTHY 12/02/22 0654: Subjective Date Seen by a Provider: Dec 02, 2022 Time Seen by a Provider: 06:49 Subjective/Events-last exam Pt is a 72 y/o male complaining of continued RLQ quadrant pain radiating into the periumbilical region b/l. Pt states that his pain has been under better control than when he first arrived yesterday. Reports that pain control lasts for 1 hr and he gets meds every 3 hrs. Reports pain is worse with urinating. Denies any BM since yesterday but is passing gas. Review of Systems General: No Chills, No Malaise HEENT: No Visual Changes, No Eye Pain Pulmonary: No Dyspnea, No Cough Cardiovascular: No: Chest Pain, Lt Headedness Gastrointestinal: Abdominal Pain; No: Vomiting Genitourinary: Dysuria, Frequency Musculoskeletal: No: neck pain, shoulder pain Neurological: No: Change in speech, Confusion Focused Exam Sepsis Stage: Ruled Out Respiratory: No Accessory Muscle Use, No Respiratory Distress Cardiovascular: Regular Rate, Rhythm, No JVD Peripheral Pulses: 2+ Radial Pulses (R), 2+ Radial Pulses (L) Skin: normal color, warm/dry Objective Exam Vital Signs Date Time Temp Pulse Resp B/P (MAP) Pulse Ox O2 Delivery O2 Flow Rate FiO2 12/02/22 04:25 37.0 62 18 125/66 (85) 96 Room Air 12/01/22 23:34 36.6 70 18 128/62 (84) 97 Room Air 12/01/22 20:11 95 Room Air 12/01/22 20:03 37.6 63 93 12/01/22 19:50 37.6 66 18 140/69 (92) 95 Room Air 12/01/22 18:47 63 16 134/69 93 Room Air 12/01/22 12:16 37.6 69 14 141/67 (91) 97 Room Air I & O 12/02/22 07:00 Intake Total 1300 ml Output Total 10 ml Balance 1290 ml Capillary Refill : General Appearance: No Apparent Distress, WD/WN HEENT: PERRL/EOMI, Pharynx Normal Neck: Full Range of Motion, Normal Inspection Respiratory: No Accessory Muscle Use, No Respiratory Distress Cardiovascular: Regular Rate, Rhythm, Normal Peripheral Pulses Peripheral Pulses: 2+ Radial Pulses (R), 2+ Radial Pulses (L) Gastrointestinal: soft, tenderness (diffuse but worse in RLQ and periumbilical region) Extremity: Normal Inspection, Normal Range of Motion Neurologic/Psychiatric: Alert, Oriented x3 Skin: Normal Color, Warm/Dry Lymphatic: No Adenopathy Results Lab Laboratory Tests 12/01/22 13:02: Urine Color YELLOW, Urine Clarity CLEAR, Urine pH 6.0, Urine Specific [place] 1.025H, Urine Protein 2+H, Urine Glucose (UA) NEGATIVE, Urine Ketones NEGATIVE, Urine Nitrite NEGATIVE, Urine Bilirubin 1+H, Urine Urobilinogen 1.0, Urine Leukocyte Esterase NEGATIVE, Urine RBC (Auto) 2+H, Urine RBC 5-10H, Urine WBC NONE, Urine Squamous Epithelial Cells NONE, Urine Crystals NONE, Urine Bacteria NEGATIVE, Urine Casts NONE, Urine Mucus SMALLH, Urine Culture Indicated NO 12/01/22 14:12: White Blood Count 18.1H, Red Blood Count 4.13L, Hemoglobin 13.7, Hematocrit 39L, Mean Corpuscular Volume 95, Mean Corpuscular Hemoglobin 33, Mean Corpuscular Hemoglobin Concent 35, Red Cell Distribution Width 12.8, Platelet Count 278, Mean Platelet Volume 10.6, Immature Granulocyte % (Auto) 1, Neutrophils (%) (Auto) 85H, Lymphocytes (%) (Auto) 6L, Monocytes (%) (Auto) 8, Eosinophils (%) (Auto) 0, Basophils (%) (Auto) 0, Neutrophils # (Auto) 15.4H, Lymphocytes # (Auto) 1.2, Monocytes # (Auto) 1.4H, Eosinophils # (Auto) 0.0, Basophils # (Auto) 0.0, Immature Granulocyte # (Auto) 0.1, Neutrophils % (Manual) 82, Lymphocytes % (Manual) 9, Monocytes % (Manual) 8, Band Neutrophils 1, Blood Morphology Comment NORMAL, Sodium Level 138, Potassium Level 3.4L, Chloride Level 101, Carbon Dioxide Level 24, Anion Gap 13, Blood Urea Nitrogen 25H, Creatinine 1.23, Estimat Glomerular Filtration Rate 63, BUN/Creatinine Ratio 20, Glucose Level 122H, Calcium Level 8.8, Corrected Calcium 8.9, Total Bilirubin 1.4H, Aspartate Amino Transf (AST/SGOT) 30, Alanine Aminotransferase (ALT/SGPT) 39, Alkaline Phosphatase 50, Total Protein 6.9, Albumin 3.9 9/7/23 05:15: White Blood Count 16.1H, Red Blood Count 3.65L, Hemoglobin 11.9L, Hematocrit 35L , Mean Corpuscular Volume 97, Mean Corpuscular Hemoglobin 33, Mean Corpuscular Hemoglobin Concent 34, Red Cell Distribution Width 12.8, Platelet Count 239, Mean Platelet Volume 10.2, Sodium Level 138, Potassium Level 3.6, Chloride Level 104, Carbon Dioxide Level 25, Anion Gap 9, Blood Urea Nitrogen 21H, Creatinine 1.09, Estimat Glomerular Filtration Rate 73, BUN/Creatinine Ratio 19, Glucose Level 143H, Calcium Level 8.1L, Magnesium Level 2.1 Assessment/Plan Assessment/Plan Assessment/Plan 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 There may be developing fluid collection abutting the small bowel and sigmoid colon measuring up to 1.6 x 3.6 cm. Likely reactive inflammation and wall thickening of the distal ileum within the right lower quadrant. Less likely differential could include primary infection or inflammation of the small bowel with perforation and reactive wall thickening of the sigmoid colon. Likely reactive wall thickening of the superior wall of the urinary bladder. Will try conservative management with NPO, Cipro/Flagyl. May need repeat imaging. -NPO -IV fluids If worsening would consider exploration Patient understands and agrees with plan Hold anticoagulation/antiplatelts. SCD's dvt prophylaxis. ROCIO SMITH DO 12/02/22 0854: Subjective Subjective/Events-last exam Pain maybe better to slightly improved. WBC slightly decreased. Pain controlled. NPO. Denies n/v fever sweats chills shorntess of breath or chest pain. 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 There may be developing fluid collection abutting the small bowel and sigmoid colon measuring up to 1.6 x 3.6 cm. Likely reactive inflammation and wall thickening of the distal ileum within the right lower quadrant. Less likely differential could include primary infection or inflammation of the small bowel with perforation and reactive wall thickening of the sigmoid colon. Likely reactive wall thickening of the superior wall of the urinary bladder. Will try conservative management with NPO, Cipro/Flagyl. May need repeat imaging. -NPO -IV fluids If worsening would consider exploration Patient understands and agrees with plan Hold anticoagulation/antiplatelets. SCD's dvt prophylaxis. Supervisory-Addendum Brief Verification & Attestation Participated in pt care: history, MDM, physical Personally performed: exam, history, MDM, supervision of care Care discussed with: Medical Student Procedures: n/a Results interpretation: Verified all documentation Verification and Attestation of Medical Student E/M Service A medical student performed and documented this service in my presence. I reviewed and verified all information documented by the medical student and made modifications to such information, when appropriate. I personally performed the physical exam and medical decision making. Rocio Smith, Dec 02, 2022,08:54 HAMZAH MCCARTHY Dec 02, 2022 06:54 ROCIO SMITH DO Dec 02, 2022 08:54
[2022-12-02 08:31] VITALS: BP 113/66
[2022-12-02 12:00] VITALS: BP 138/80
--- NOTE | 2022-12-02 12:29 | Consultation - Hospitalist ---
HPI History of Present Illness: HPI/Chief Complaint Patient is 72-year-old male past medical history of diverticulosis, hypertension, hyperlipidemia, atrial fibrillation, coronary artery disease who presented to the emergency department due to abdominal pain. He reports his symptoms started 4 to 5 days ago and describes it as lower abdominal pain. He noticed his urine to be darker and so thought he was dehydrated and tried to drink more fluids. Despite this his abdominal pain worsened and spread across his entire abdomen. He presented to the emergency department and a CT revealed a perforated sigmoid diverticulum with diverticulitis. He was admitted to the surgical service for conservative management. I am consulted for medical aime lomax. He reports that his abdominal pain is improved and is only bothering him when he passes gas. His biggest complaint is that he is having back pain. Source: patient Date Seen 12/02/22 Attending Physician Viktor Kapoor MD PCP Admitting Physician: Maite Concepcion MD Attending Physician: Maite Concepcion MD Referring Physician Date of Admission Dec 01, 2022 at 19:19 Home Medications & Allergies Home Medications Reviewed patient Home Medication Reconciliation performed by pharmacy medication reconciliations range technician and/or nursing. Patients Allergies have been reviewed. Allergies Allergies Coded Allergies codeine (Verified Allergy, Mild, ITCHING, 09/13/19) Sulfa (Sulfonamide Antibiotics) (Verified Allergy, Unknown, FROM CHILDHOOD, 09/13/19) Past Mdyjsdn-Xxncwu-Bspjcy Hx Patient Social History Tobacco Use?: No Smoking Status: Never a Smoker Use of E-Cig and/or Vaping dev: No Substance use?: No Alcohol Use?: Yes (6 beers on weekends on average) Alcohol type: Beer Alcohol Frequency: Once in a while Pt feels they are or have been: No Immunizations Up To Date Date of Influenza Vaccine: Jan 01, 2019 First/Initial COVID19 Vaccinat: 2020 Second COVID19 Vaccination Ludwig: 2020 Date of Pneumonia Vaccine: Jan 01, 2019 Seasonal Allergies Seasonal Allergies: Yes (MILD) Current Status Advance Directives: Yes Advance Directive Location: Home Communicates: Verbally Primary Language: Ethiopian Preferred Spoken Language: Ethiopian Is interpretation needed?: No Sensory deficits: Vision impairment Implanted or Applied Medical D: Stents Past Medical History Surgeries: Coronary Stent (x1), Eye Surgery COPD Atrial Fibrillation, Coronary Artery Disease, High Cholesterol, Hypertension Vertigo Sexually Transmitted Disease: No HIV/AIDS: No Diverticulosis Loss of Vision: Denies Hearing Impairment: Denies Skin (BCC) Did You Recieve Any Treatments: No What Type of Treatment Did You: Surgical Intervention Anxiety Blood Disorders: No Adverse Reaction/Blood Tranf: No (N/A) Family Medical History No Pertinent Family Hx Review of Systems Constitutional: see HPI Physical Exam Physical Exam Vital Signs Vital Signs - First Documented 12/01/22 12:16 Temp 37.6 Pulse 69 Resp 14 B/P (MAP) 141/67 (91) Pulse Ox 97 O2 Delivery Room Air Capillary Refill : Height, Weight, BMI Height: 5'9.00" Weight: 187lbs. oz. 84.795477lh; 30.04 BMI Method:Stated General Appearance: No Apparent Distress, WD/WN HEENT: PERRL/EOMI, Normal ENT Inspection Neck: Full Range of Motion, Normal Inspection Respiratory: Lungs Clear, No Accessory Muscle Use, No Respiratory Distress Cardiovascular: Regular Rate, Rhythm, No Murmur Gastrointestinal: Abnormal Bowel Sounds (quiet), Distended; No Guarding, No Rebound; Tenderness (mild and diffuse) Extremity: No Calf Tenderness, No Pedal Edema Neurologic/Psychiatric: Alert, Oriented x3, Normal Mood/Affect Skin: Normal Color, Warm/Dry Lymphatic: No Adenopathy Results Results/Procedures Labs Laboratory Tests 12/02/22 05:15 12/03/22 07:19 12/03/22 14:00 Patient resulted labs reviewed. Imaging: Reviewed Imaging Report Imaging [facility], [place] NAME: JOSEBETH Cris [facility] REC#: [id number] PT STATUS: REG ER : 1950 PHYSICIAN: HUBER SHEA MD ADMIT DATE: 12/01/22/ER Signed Date of Exam:12/01/22 CT ABDOMEN/PELVIS W EXAMINATION: CT abdomen and pelvis with intravenous contrast. TECHNIQUE: Multiple contiguous axial images were obtained through the abdomen and pelvis after the uneventful administration of intravenous contrast. All CT scans use one or more of the following dose optimizing techniques: automated exposure control, MA and/or KvP adjustment based on patient size and exam type or iterative reconstruction. HISTORY: severe RLQ abdominal pain COMPARISON: 07/28/2018. FINDINGS: Lung bases: Bibasilar dependent atelectasis. Solid organs: The liver is normal without focal lesion. The gallbladder is normal. There is no biliary ductal dilation. Pancreas is normal. Spleen is normal. Adrenal glands are normal. The kidneys are normal without hydronephrosis. Bowel: There is abnormal wall thickening and inflammatory stranding seen within the distal ileum in the right lower quadrant. This is adjacent to an area of sigmoid colon wall thickening and inflammatory stranding with numerous diverticula present. The appendix is normal. Peritoneum: There is mild free fluid within the right lower quadrant and lower abdomen. There is a possible developing air-fluid collection seen adjacent to the small bowel and sigmoid colon measuring 1.6 x 3.6 cm. No suspicious lymphadenopathy. Vasculature: Calcification of the aorta without aneurysm. Musculoskeletal: No suspicious osseous lesion or compression fracture. Pelvis: The prostate gland is normal. There is mild wall thickening in the superior bladder near the area of inflammation of the sigmoid colon, likely reactive. IMPRESSION: 1. Findings most likely suggestive of perforated sigmoid diverticulitis with mild free air and free fluid in the right lower quadrant. There may be developing fluid collection abutting the small bowel and sigmoid colon measuring up to 1.6 x 3.6 cm. 2. Likely reactive inflammation and wall thickening of the distal ileum within the right lower quadrant. Less likely differential could include primary infection or inflammation of the small bowel with perforation and reactive wall thickening of the sigmoid colon. 3. Likely reactive wall thickening of the superior wall of the urinary bladder. Recommend correlation with urinalysis. Dictated by: Dictated on workstation # [id number] Dict: 12/01/22 1544 Trans: 12/01/22 1557 [id number] Interpreted by: FELICE LOCKWOOD DO Electronically signed by: FELICE LOCKWOOD DO 12/01/22 1557 Assessment/Plan Assessment and Plan Assess & Plan/Chief Complaint Perforated diverticulum and diverticulitis Management per primary NPO IV abx Fentanyl for pain HTN HLD A-fib CAD hold anticoagulation in case he needs surgery BP well controlled Diagnosis/Problems Diagnosis/Problems (1) Hypertension (2) Hyperlipidemia (3) CAD (coronary artery disease) (4) Chronic back pain (5) Perforation of sigmoid colon due to diverticulitis Status: Acute (6) Atrial fibrillation Status: Acute MAITE CONCEPCION MD Dec 02, 2022 12:29
[2022-12-02] MEDS ORDERED: ASPI-1238 PO (13:00)
[2022-12-02] MEDS ORDERED: DRON400T6 PO (13:00)
[2022-12-02] MEDS ORDERED: SUCR1TAB PO (13:00)
[2022-12-02] MEDS ORDERED: PANT40TA52 PO (13:00)
[2022-12-02] MEDS ORDERED: SERT-412 PO (13:00)
[2022-12-02] MEDS ORDERED: COLC0.6T59 PO (13:00)
[2022-12-02] MEDS ORDERED: IBUP-2473 PO (13:00)
[2022-12-02] MEDS ORDERED: IRBE1TAB41 PO (13:00)
[2022-12-02] MEDS ORDERED: ROSU40TA23 PO (13:00)
[2022-12-02] MEDS ORDERED: RIVA20TA PO (13:00)
[2022-12-02 15:35] VITALS: BP 116/69
[2022-12-02 19:20] VITALS: BP 128/65
[2022-12-02 23:05] VITALS: BP 112/58
[2022-12-03] MEDS: NS IV 1000 ML 1,000 ML IV SCH ×3 (02:45→20:10)
[2022-12-03] MEDS: fentaNYL INJECTION 100 MCG/2 ML VIAL IV PRN ×2 (03:04→23:25)
[2022-12-03 03:30] VITALS: BP 131/67
[2022-12-03] MEDS: CIPROFLOXACIN 400 MG/D5W 200 ML (PRE-MIX) IV SCH ×2 (04:51→17:16)
[2022-12-03] MEDS: metroNIDAZOLE 500 MG/100 ML IVPB (PRE-MIX) IV SCH ×3 (05:59→21:55)
[2022-12-03] MEDS ORDERED: ENOXAPARIN 40 MG/0.4 ML SYRINGE SC ONE (07:00)
--- NOTE | 2022-12-03 07:22 | Progress Note - Surgery ---
HAMZAH MCCARTHY 12/03/22 0722: Subjective Date Seen by a Provider: Dec 03, 2022 Time Seen by a Provider: 07:17 Subjective/Events-last exam Pt is 72 year old male presenting with periumbilical and RLQ pain. States that his pain is well controlled, normally a 0/10 without movement and it is at worst a 6/10 when a gas pocket moves through his belly or he stands up. Reports 2 episodes of loose, nonbloody bowel movements this morning with frequent gas passing. He reports ambulating x3 yesterday without any difficulty. Denies n/v. This morning at 6:10 AM, he informed his nurse that he felt chest palpitations that radiated towards his back. Reports that he thinks he is back in Afib. An EKG was ordered. Dr. Wisdom was called by the nurse and a consult with cardiology was requested. He was ordered 1 dose of Levenox 40. Review of Systems General: No Chills, No Night Sweats HEENT: No Head Aches, No Visual Changes Pulmonary: No Dyspnea, No Cough Cardiovascular: Palpitations (Afib palpitations today at 6:10 AM); No: Chest Pain Gastrointestinal: Abdominal Pain, Diarrhea; No: Nausea, Vomiting Genitourinary: No Dysuria, No Frequency Musculoskeletal: No: neck pain, shoulder pain Neurological: No: Change in speech, Confusion Focused Exam Sepsis Stage: Ruled Out Respiratory: No Accessory Muscle Use, No Respiratory Distress Cardiovascular: Normal Peripheral Pulses, Irregularly Irregular Peripheral Pulses: 2+ Radial Pulses (R), 2+ Radial Pulses (L) Skin: normal color, warm/dry Objective Exam Vital Signs Date Time Temp Pulse Resp B/P (MAP) Pulse Ox O2 Delivery O2 Flow Rate FiO2 12/03/22 03:30 37.2 56 16 131/67 (88) 94 Room Air 12/02/22 23:05 37.4 60 18 112/58 (76) 97 Room Air 12/02/22 20:55 Room Air 12/02/22 19:20 37.1 59 18 128/65 (86) 94 Room Air 12/02/22 15:35 37.2 64 16 116/69 (85) 95 Room Air 12/02/22 12:00 37.1 57 14 138/80 (99) 93 Room Air 12/02/22 08:31 36.8 56 16 113/66 (82) OxyMask 12/02/22 08:00 Room Air I & O 12/03/22 07:00 Intake Total 1300 ml Balance 1300 ml Capillary Refill : General Appearance: No Apparent Distress, WD/WN HEENT: PERRL/EOMI, Normal ENT Inspection Neck: Full Range of Motion, Normal Inspection Respiratory: Lungs Clear, No Accessory Muscle Use, No Respiratory Distress Cardiovascular: Normal Peripheral Pulses, Irregularly Irregular Peripheral Pulses: 2+ Radial Pulses (R), 2+ Radial Pulses (L) Gastrointestinal: soft, tenderness (lower abdomen), other (less tympanic to percussion in RLQ) Extremity: No Calf Tenderness, No Pedal Edema Neurologic/Psychiatric: Alert, Oriented x3, Normal Mood/Affect Skin: Normal Color, Warm/Dry Lymphatic: No Adenopathy Results Lab Laboratory Tests 12/02/22 16:07: Glucometer 90 Assessment/Plan Assessment/Plan Assessment/Plan Diffuse abdominal pain diverticulitis with perforation [facility] anitcoagulation/antiplatlet Afib with recent ablation. CAD - Episode of Afib today. EKG today demonstrated Afib with inferior SD of indeterminate age. Ordered one dose of Levenox 40 - Consult cardiology - SCD's dvt prophylaxis. - CT scan done 12/01/22 with findings most likely suggestive of perforated sigmoid diverticulitis with mild free air and free fluid in the right lower quadrant. There may be developing fluid collection abutting the small bowel and sigmoid colon measuring up to 1.6 x 3.6 cm. Likely reactive inflammation and wall thickening of the distal ileum within the right lower quadrant. Less likely differential could include primary infection or inflammation of the small bowel with perforation and reactive wall thickening of the sigmoid colon. Likely reactive wall thickening of the superior wall of the urinary bladder. - Continue conservative management with NPO, Cipro/Flagyl. May need repeat imaging. -IV fluids - If worsening would consider exploration - Patient understands and agrees with plan ROCIO SMITH DO 12/03/22 1414: Subjective Subjective/Events-last exam Less pain. Having bowel function. Currently NPO. Went to afib this am. WBC down to 13.8. Denies n/v fever sweats chills shortness of breath or chest pain. Objective Exam General Appearance: No Apparent Distress, WD/WN HEENT: PERRL/EOMI, Normal ENT Inspection Neck: Full Range of Motion, Normal Inspection Respiratory: Chest Non Tender, No Accessory Muscle Use, No Respiratory Distress Cardiovascular: No JVD, Irregularly Irregular Gastrointestinal: soft, tenderness (lower abdomen improving) Extremity: No Calf Tenderness, No Pedal Edema Neurologic/Psychiatric: Alert, Oriented x3, Normal Mood/Affect Skin: Normal Color, Warm/Dry Lymphatic: No Adenopathy Assessment/Plan Assessment/Plan Assessment/Plan Diffuse abdominal pain diverticulitis with perforation [facility] anitcoagulation/antiplatlet Afib with recent ablation. CAD - Episode of Afib today. EKG today demonstrated Afib with inferior SD of indeterminate age. Was ordered one dose of Levenox 40 but started heparin drip. - Consult cardiology - SCD's dvt prophylaxis. - CT scan done 12/01/22 with findings most likely suggestive of perforated sigmoid diverticulitis with mild free air and free fluid in the right lower quadrant. There may be developing fluid collection abutting the small bowel and sigmoid colon measuring up to 1.6 x 3.6 cm. Likely reactive inflammation and wall thickening of the distal ileum within the right lower quadrant. Less likely differential could include primary infection or inflammation of the small bowel with perforation and reactive wall thickening of the sigmoid colon. Likely reactive wall thickening of the superior wall of the urinary bladder. - Continue conservative management with NPO, Cipro/Flagyl. May need repeat imaging. -IV fluids -NPO since improving will start clears. -Repeat labs in am - If worsening would consider exploration - Patient understands and agrees with plan Supervisory-Addendum Brief Verification & Attestation Participated in pt care: history, MDM, physical Personally performed: exam, history, MDM, supervision of care Care discussed with: Medical Student Procedures: n/a Results interpretation: Verified all documentation Verification and Attestation of Medical Student E/M Service A medical student performed and documented this service in my presence. I reviewed and verified all information documented by the medical student and made modifications to such information, when appropriate. I personally performed the physical exam and medical decision making. Rocio Smith, Dec 03, 2022,14:14 HAMZAH MCCARTHY Dec 03, 2022 07:22 ROCIO SMITH DO Dec 03, 2022 14:14
[2022-12-03 07:25] LABS: HEMATOCRIT 34 % (40-54); HEMOGLOBIN 11.8 g/dL (13.3-17.7); MEAN CORPUSCULAR HEMOGLOBIN 33 pg (25-34); MEAN CORPUSCULAR HGB CONC 34 g/dL (32-36); MEAN CORPUSCULAR VOLUME 96 fL (80-99); PLATELET COUNT 250 10^3/uL (130-400); WHITE BLOOD COUNT 13.8 10^3/uL (4.3-11.0)
[2022-12-03 07:36] VITALS: BP 111/66
[2022-12-03 07:40] LABS: CALCIUM 8.1 MG/DL (8.5-10.1); CREATININE SERUM 0.91 MG/DL (0.60-1.30); POTASSIUM 3.4 MMOL/L (3.6-5.0)
[2022-12-03 11:13] VITALS: BP 113/65
--- NOTE | 2022-12-03 13:42 | Progress Note - Hospitalist ---
Subjective HPI/CC On Admission Date Seen by Provider: Dec 03, 2022 Patient is 72-year-old male past medical history of diverticulosis, hypertension, hyperlipidemia, atrial fibrillation, coronary artery disease who presented to the emergency department due to abdominal pain. He reports his symptoms started 4 to 5 days ago and describes it as lower abdominal pain. He noticed his urine to be darker and so thought he was dehydrated and tried to drink more fluids. Despite this his abdominal pain worsened and spread across his entire abdomen. He presented to the emergency department and a CT revealed a perforated sigmoid diverticulum with diverticulitis. He was admitted to the surgical service for conservative management. I am consulted for medical management. He reports that his abdominal pain is improved and is only bothering him when he passes gas. His biggest complaint is that he is having back pain. Subjective/Events-last exam Pt reports doing well. Pain improved. Was told he could advance to clears and would like a sprite. No other complaints. Objective Exam Vital Signs Vital Signs Date Time Temp Pulse Resp B/P (MAP) Pulse Ox O2 Delivery O2 Flow Rate FiO2 12/03/22 12:20 96 Room Air 12/03/22 11:13 36.5 90 18 113/65 (81) Capillary Refill : General Appearance: No Apparent Distress, WD/WN Respiratory: Lungs Clear, No Respiratory Distress Cardiovascular: Regular Rate, Rhythm Gastrointestinal: Normal Bowel Sounds, Soft; No Distended, No Guarding; Tenderness (mild) Neurologic/Psychiatric: Alert, Oriented x3 Results/Procedures Lab Laboratory Tests 12/03/22 07:19 12/03/22 14:00 Patient resulted labs reviewed. Imaging: Reviewed Imaging Report Assessment/Plan Assessment and Plan Assess & Plan/Chief Complaint Perforated diverticulum and diverticulitis Management per primary Advance to clears IV abx Fentanyl for pain- needing less A-fib Went into a fib last night but rate controlled heparin gtt per skye in case he needs surgery HTN HLD CAD hold anticoagulation in case he needs surgery BP well controlled dvt ppx: Heparin Diagnosis/Problems Diagnosis/Problems (1) Hypertension (2) Hyperlipidemia (3) CAD (coronary artery disease) (4) Chronic back pain (5) Perforation of sigmoid colon due to diverticulitis Status: Acute (6) Atrial fibrillation Status: Acute MAITE ROBERTO MD Dec 03, 2022 13:42
[2022-12-03] MEDS ORDERED: HEParin 1000 UNIT/ML (10ML VIAL) FOR BOLUS IV SCH (13:45)
[2022-12-03] MEDS ORDERED: HEParin DRIP 25000 UNIT/500ML 500 ML IV ONE (13:45)
[2022-12-03] MEDS ORDERED: HEParin DRIP 25000 UNIT/500ML 500 ML IV SCH (14:00)
[2022-12-03 14:07] LABS: HEMATOCRIT 37 % (40-54); HEMOGLOBIN 12.4 g/dL (13.3-17.7); MEAN CORPUSCULAR HEMOGLOBIN 32 pg (25-34); MEAN CORPUSCULAR HGB CONC 33 g/dL (32-36); MEAN CORPUSCULAR VOLUME 97 fL (80-99); MEAN PLATELET VOLUME 9.8 fL (9.0-12.2); PLATELET COUNT 256 10^3/uL (130-400); WHITE BLOOD COUNT 13.2 10^3/uL (4.3-11.0)
[2022-12-03 16:27] VITALS: BP 122/72
--- NOTE | 2022-12-03 17:22 | Consultation-Cardiology ---
HPI-Cardiology Cardiology Consultation: Date of Consultation 12/03/22 Date of Admission Attending Physician Viktor Kapoor MD Admitting Physician Admitting Physician: Hermelinda Concepcion MD Attending Physician: Hermelinda Concepcion MD Consulting Physician Radha HERRERA MD HPI: Time Seen by a Provider: 17:00 Chief Complaint: Abdominal pain This is a 72-year-old gentleman who is a patient of Dr. Garrison. He has previous history of coronary artery disease, PCI and persistent atrial fibrillation with recent atrial fibrillation ablation 2 weeks ago at . He also has history of hypertension, hyperlipidemia. He presents with abdominal pain for the last 4 to 5 days and has been diagnosed with perforated sigmoid diverticulum with diverticulitis. On IV antibiotics and conservative treatment. Denies any chest pain or shortness of breath. Review of Systems-Cardiology Review of Systems Constitutional: no symptoms reported Eyes: no symptoms reported Ears/Nose/Throat: no symptoms reported Respiratory: No shortness of breath Cardiovascular: No chest pain Gastrointestinal: abdominal pain All Other Systems Reviewed Negative Unless Noted: Yes (Negative excepted noted.) APC-Oxnula-Vxnzby Hx Patient Social History Smoking Status: Never a Smoker 2nd Hand Smoke Exposure: No Alcohol Use?: Yes (6 beers on weekends on average) Pt feels they are or have been: No Immunizations Up To Date Date of Pneumonia Vaccine: Jan 01, 2019 Date of Influenza Vaccine: Jan 01, 2019 Past Medical History PMH As described under Assessment. Allergies and Home Medications Allergies Coded Allergies: codeine (Verified Allergy, Mild, ITCHING, 09/13/19) Sulfa (Sulfonamide Antibiotics) (Verified Allergy, Unknown, FROM CHILDHOOD, 09/13/19) Patient Home Medication List Home Medication List Reviewed: Yes Aspirin (Aspirin EC) 81 Mg Tablet.dr, 81 MG PO HS, (Reported) Entered as Reported by: LINDSEY REYES on 12/02/22 1300 Last Action: Reviewed Colchicine (Colchicine) 0.6 Mg Tablet, 0.6 MG PO DAILY, (Reported) Entered as Reported by: LINDSEY REYES on 12/02/22 1300 Last Action: Reviewed Dronedarone HCl (Multaq) 400 Mg Tablet, 400 MG PO BID, (Reported) Entered as Reported by: LINDSEY REYES on 12/02/22 1300 Last Action: Reviewed Ibuprofen (Ibuprofen) 200 Mg Tablet, 600 MG PO Q8H PRN for PAIN-MILD (1-4), (Reported) Entered as Reported by: LINDSEY REYES on 12/02/221299 Last Action: Reviewed Irbesartan/Hydrochlorothiazide (Irbesartan-Hctz 150-12.5 mg Tb) 150 Mg-12.5 Mg Tablet, 1 EA PO DAILY, (Reported) Entered as Reported by: LINDSEY REYES on 12/02/221299 Last Action: Reviewed L.acidoph & Paracasei,B.lactis (Probiotic) 1 Each Capsule, 1 EACH PO DAILY, (Reported) Entered as Reported by: LINDSEY REYES on 09/16/20 132 Last Action: Reviewed Multivitamin (Multivitamin) 1 Each Tablet, 1 EACH PO BID, (Reported) Entered as Reported by: BIRD HERNANDEZ on 09/13/19 113 Last Action: Reviewed Stone-3 Fatty Acids/Fish Oil (Fish Oil 1,200 mg Softgel) 360 Mg-1,200 Mg Capsule, 2 EACH PO BID, (Reported) Entered as Reported by: BIRD HERNANDEZ on 09/13/191133 Last Action: Reviewed Pantoprazole Sodium (Pantoprazole Sodium) 40 Mg Tablet.dr, 40 MG PO BID, (Reported) Entered as Reported by: LINDSEY REYES on 12/02/221299 Last Action: Reviewed Rivaroxaban (Xarelto) 20 Mg Tablet, 20 MG PO DAILY, (Reported) Entered as Reported by: LINDSEY REYES on 12/02/221299 Last Action: Reviewed Rosuvastatin Calcium (Rosuvastatin Calcium) 40 Mg Tablet, 40 MG PO HS, (Reported) Entered as Reported by: LINDSEY REYES on 12/02/221299 Last Action: Reviewed Sertraline HCl (Sertraline HCl) 25 Mg Tablet, 25 MG PO HS, (Reported) Entered as Reported by: LINDSEY REYES on 12/02/221299 Last Action: Reviewed Sucralfate (Sucralfate) 1 Gram Tablet, 1 GM PO BIDAC, (Reported) Entered as Reported by: LINDSEY REYES on 12/02/221299 Last Action: Reviewed Ubidecarenone (Coq-10) 100 Mg Capsule, 100 MG PO HS, (Reported) Entered as Reported by: LINDSEY REYES on 09/16/20 1326 Last Action: Reviewed Discontinued Medications Apixaban (Eliquis) 5 Mg Tablet, 5 MG PO BID, (Reported) Discontinued Reason: No Longer Taking Entered as Reported by: CHARLETTE CHOU on 12/10/201104 Last Action: Discontinued Aspirin (Aspirin EC) 81 Mg Tablet.dr, 81 MG PO DAILY Discontinued Reason: No Longer Taking Prescribed by: ANMOL GARRISON on 12/11/20617 Last Action: Discontinued Clopidogrel Bisulfate (Clopidogrel) 75 Mg Tablet, 75 MG PO DAILY Discontinued Reason: No Longer Taking Prescribed by: ANMOL GARRISON on 12/11/20617 Last Action: Discontinued Dronedarone HCl (Multaq) 400 Mg Tablet, 400 MG PO BID, (Reported) Discontinued Reason: No Longer Taking Entered as Reported by: CHARLETTE CHOU on 12/10/201104 Last Action: Discontinued Escitalopram Oxalate (Lexapro) 10 Mg Tablet, 10 MG PO HS, (Reported) Discontinued Reason: No Longer Taking Entered as Reported by: CHARLETTE CHOU on 12/10/201104 Last Action: Discontinued Irbesartan (Irbesartan) 150 Mg Tablet, 150 MG PO HS, (Reported) Discontinued Reason: No Longer Taking Entered as Reported by: BIRD HERNANDEZ on 09/13/191133 Last Action: Discontinued Pantoprazole Sodium (Protonix) 40 Mg Granpkt., 40 MG PO DAILY Discontinued Reason: No Longer Taking Prescribed by: ANMOL GARRISON on 12/11/20617 Last Action: Discontinued Simvastatin (Simvastatin) 40 Mg Tablet, 40 MG PO HS, (Reported) Discontinued Reason: No Longer Taking Entered as Reported by: BIRD HERNANDEZ on 09/13/191133 Last Action: Discontinued Exam Vital Signs Vital Signs Date Time Temp Pulse Resp B/P (MAP) Pulse Ox O2 Delivery O2 Flow Rate FiO2 12/03/22 16:27 37.0 63 18 122/72 (89) 96 Room Air Physical Exam Constitutional: No respiratory distress. Chest: Clear to auscultation bilaterally. CVS: Irregularly irregular rhythm. Abdomen: Discomfort Neuro: Nonfocal, No significant pedal edema. Labs Laboratory Tests Test 12/03/22 07:19 12/03/22 14:00 Range/Units White Blood Count 13.8 H 13.2 H 4.3-11.0 10^3/uL Red Blood Count 3.56 L 3.85 L 4.30-5.52 10^6/uL Hemoglobin 11.8 L 12.4 L 13.3-17.7 g/dL Hematocrit 34 L 37 L 40-54 % Mean Corpuscular Volume 96 97 80-99 fL Mean Corpuscular Hemoglobin 33 32 25-34 pg Mean Corpuscular Hemoglobin Concent 34 33 32-36 g/dL Red Cell Distribution Width 13.0 13.2 10.0-14.5 % Platelet Count 250 256 130-400 10^3/uL Mean Platelet Volume 10.0 9.8 9.0-12.2 fL Sodium Level 141 135-145 MMOL/L Potassium Level 3.4 L 3.6-5.0 MMOL/L Chloride Level 108 H 98-107 MMOL/L Carbon Dioxide Level 22 21-32 MMOL/L Anion Gap 11 5-14 MMOL/L Blood Urea Nitrogen 21 H 7-18 MG/DL Creatinine 0.91 0.60-1.30 MG/DL Estimat Glomerular Filtration Rate 91 BUN/Creatinine Ratio 23 Glucose Level 102 70-105 MG/DL Calcium Level 8.1 L 8.5-10.1 MG/DL Activated Partial Thromboplast Time 33 24-35 SEC ECG Impression ECG Initial ECG Rhythm: A Fib/Flutter Comment Previous inferior AK A/P-Cardiology Assessment/Admission Diagnosis Perforated sigmoid diverticulitis, Persistent atrial fibrillation, Recent atrial fibrillation ablation, Chronic oral anticoagulation, CAD, previous PCI Plan Perforated sigmoid diverticulitis, defer to the primary team. Persistent atrial fibrillation, on IV heparin. Recent atrial fibrillation ablation, received colchicine for post atrial fibrillation ablation myopericarditis. Feeling much better. Chronic oral anticoagulation, currently on IV heparin. CAD, previous PCI 1-1/2-year ago. Was initially on aspirin and Plavix. Curre ntly on aspirin only. No active symptoms. Echocardiogram showed preserved LV function with no significant valvular heart disease Radha HERRERA MD Dec 03, 2022 17:22
[2022-12-03 19:26] VITALS: BP 119/68
[2022-12-03] MEDS: HEParin DRIP 25000 UNIT/500ML 500 ML IV SCH (19:30)
[2022-12-03 23:28] VITALS: BP 141/69
[2022-12-04] MEDS: fentaNYL INJECTION 100 MCG/2 ML VIAL IV PRN ×4 (01:46→11:23)
[2022-12-04 04:00] VITALS: BP 113/79
[2022-12-04] MEDS: CIPROFLOXACIN 400 MG/D5W 200 ML (PRE-MIX) IV SCH ×2 (04:12→17:35)
[2022-12-04] MEDS: NS IV 1000 ML 1,000 ML IV SCH (04:12)
[2022-12-04] MEDS: metroNIDAZOLE 500 MG/100 ML IVPB (PRE-MIX) IV SCH ×3 (05:44→22:33)
[2022-12-04 07:11] VITALS: BP 145/79
[2022-12-04] MEDS: HEParin 1000 UNIT/ML (10ML VIAL) FOR BOLUS IV SCH (08:13)
[2022-12-04] MEDS ORDERED: POTASSIUM CHLORIDE 20 MEQ TABLET PO ONE (09:30)
[2022-12-04 09:35] LABS: HEMATOCRIT 34 % (40-54); HEMOGLOBIN 11.4 g/dL (13.3-17.7); MEAN CORPUSCULAR HEMOGLOBIN 33 pg (25-34); MEAN CORPUSCULAR HGB CONC 33 g/dL (32-36); MEAN CORPUSCULAR VOLUME 98 fL (80-99); PLATELET COUNT 280 10^3/uL (130-400); WHITE BLOOD COUNT 13.8 10^3/uL (4.3-11.0)
[2022-12-04 09:44] LABS: CREATININE SERUM 0.88 MG/DL (0.60-1.30); POTASSIUM 3.1 MMOL/L (3.6-5.0)
--- NOTE | 2022-12-04 10:12 | Progress Note - Hospitalist ---
Subjective HPI/CC On Admission Date Seen by Provider: Dec 04, 2022 Patient is 72-year-old male past medical history of diverticulosis, hypertension, hyperlipidemia, atrial fibrillation, coronary artery disease who presented to the emergency department due to abdominal pain. He reports his symptoms started 4 to 5 days ago and describes it as lower abdominal pain. He noticed his urine to be darker and so thought he was dehydrated and tried to drink more fluids. Despite this his abdominal pain worsened and spread across his entire abdomen. He presented to the emergency department and a CT revealed a perforated sigmoid diverticulum with diverticulitis. He was admitted to the surgical service for conservative management. I am consulted for medical management. He reports that his abdominal pain is improved and is only bothering him when he passes gas. His biggest complaint is that he is having back pain. Subjective/Events-last exam Pt reports doing much better. Abd pain improving. Still has back pain which is chronic. Passing flatus. Had a small BM. Objective Exam Vital Signs Vital Signs Date Time Temp Pulse Resp B/P (MAP) Pulse Ox O2 Delivery O2 Flow Rate FiO2 12/04/22 07:11 37.0 60 16 145/79 (101) 96 Room Air Capillary Refill : General Appearance: No Apparent Distress, WD/WN Respiratory: Lungs Clear, No Respiratory Distress Cardiovascular: Regular Rate, Rhythm, No Murmur Gastrointestinal: Normal Bowel Sounds, Non Tender, Soft; No Guarding, No Tenderness Neurologic/Psychiatric: Alert, Oriented x3 Results/Procedures Lab Laboratory Tests 12/03/22 14:00 12/04/22 06:11 Patient resulted labs reviewed. Imaging: Reviewed Imaging Report Assessment/Plan Assessment and Plan Assess & Plan/Chief Complaint Perforated diverticulum and diverticulitis Management per primary Continue clears- advance per primary IV abx Fentanyl for pain- add hydrocodone A-fib Sounds like he is back in sinus, sounded regular and he has not felt palpitations like he did yesterday heparin gtt per skye in case he needs surgery Resume home multaq HTN HLD CAD BP well controlled dvt ppx: Heparin Diagnosis/Problems Diagnosis/Problems (1) Hypertension (2) Hyperlipidemia (3) CAD (coronary artery disease) (4) Chronic back pain (5) Perforation of sigmoid colon due to diverticulitis Status: Acute (6) Atrial fibrillation Status: Acute MAITE ROBERTO MD Dec 04, 2022 10:12
[2022-12-04] MEDS ORDERED: POTASSIUM CHLORIDE 20 MEQ TABLET PO NR (10:15)
[2022-12-04] MEDS ORDERED: IBUPROFEN 200 MG TABLET PO PRN (10:15)
--- NOTE | 2022-12-04 11:14 | Progress Note ---
Subjective Date Seen by a Provider: Dec 04, 2022 Time Seen by a Provider: 11:00 Subjective/Events-last exam doing ok. pain controlled. did have BM's. tolerating liquids. no fever/chills. Objective Exam Vital Signs Date Time Temp Pulse Resp B/P (MAP) Pulse Ox O2 Delivery O2 Flow Rate FiO2 12/04/22 10:18 Room Air 12/04/22 07:11 37.0 60 16 145/79 (101) 96 Room Air 12/04/22 04:00 37.0 65 16 113/79 (90) 95 12/03/22 23:28 37.0 66 18 141/69 (93) 96 Room Air 12/03/22 20:19 Room Air 12/03/22 20:10 Room Air 12/03/22 19:26 37.2 59 18 119/68 (85) 96 Room Air 12/03/22 16:27 37.0 63 18 122/72 (89) 96 Room Air 12/03/22 12:20 96 Room Air 12/03/22 11:13 36.5 90 18 113/65 (81) 96 Room Air I & O 12/04/22 07:00 Intake Total 2780 ml Balance 2780 ml Capillary Refill : General Appearance: No Apparent Distress HEENT: PERRL/EOMI Neck: Full Range of Motion Respiratory: Chest Non Tender, Lungs Clear Cardiovascular: Regular Rate, Rhythm Gastrointestinal: soft, tenderness Extremity: Normal Capillary Refill Neurologic/Psychiatric: Alert, Oriented x3 Skin: Normal Color Lymphatic: No Adenopathy Results Lab Laboratory Tests 12/03/22 14:00: White Blood Count 13.2H, Red Blood Count 3.85L, Hemoglobin 12.4L, Hematocrit 37L , Mean Corpuscular Volume 97, Mean Corpuscular Hemoglobin 32, Mean Corpuscular Hemoglobin Concent 33, Red Cell Distribution Width 13.2, Platelet Count 256, Mean Platelet Volume 9.8, Activated Partial Thromboplast Time 33 12/03/22 19:00: Activated Partial Thromboplast Time 76H 12/04/22 01:15: Activated Partial Thromboplast Time 92H 12/04/22 06:11: White Blood Count 13.8H, Red Blood Count 3.47L, Hemoglobin 11.4L, Hematocrit 34L , Mean Corpuscular Volume 98, Mean Corpuscular Hemoglobin 33, Mean Corpuscular Hemoglobin Concent 33, Red Cell Distribution Width 13.4, Platelet Count 280, Mean Platelet Volume 11.0, Activated Partial Thromboplast Time 63H, Sodium Level 139, Potassium Level 3.1L, Chloride Level 108H, Carbon Dioxide Level 20L, Anion Gap 11, Blood Urea Nitrogen 16, Creatinine 0.88, Estimat Glomerular Filtration Rate 93, BUN/Creatinine Ratio 18, Glucose Level 115H, Calcium Level 8.0L Assessment/Plan Assessment/Plan Assess & Plan/Chief Complaint complicated diverticulitis with sealed perforation. cont abx. ambulate. ok for PO anticoag advance diet. HAYLEY SUH MD Dec 04, 2022 11:14
[2022-12-04 11:33] VITALS: BP 162/84
[2022-12-04] MEDS: HYDROcodone/ACETAMINOPHEN 5 MG/325 MG TABLET PO PRN ×3 (12:31→20:35)
[2022-12-04] MEDS: SUCRALFATE 1 GM TABLET PO SCH (15:46)
[2022-12-04 16:28] VITALS: BP 157/82
--- NOTE | 2022-12-04 17:17 | Cardiology Progress Note ---
Cardiology SOAP Progress Note Subjective: Improved abdominal pain. No cardiac symptoms Objective: I&O/Vital Signs 12/04/22 12/04/22 12/04/22 12/04/22 07:11 10:18 11:33 16:28 Temp 37.0 36.7 37.0 Pulse 60 66 64 Resp 16 16 18 B/P (MAP) 145/79 (101) 162/84 (110) 157/82 (107) Pulse Ox 96 93 96 O2 Delivery Room Air Room Air Room Air Room Air 12/04/22 00:00 Intake Total 2580 ml Balance 2580 ml Weight (Pounds): 187 Weight (Calculated Kilograms): 84.776999 Constitutional: AAO x 3 Respiratory: lungs clear to auscultation Cardiovascular: regular rate-rhythm, S1 and S2 Skin: normal color, warm/dry Results/Procedures: Labs Laboratory Tests 12/03/22 19:00: Activated Partial Thromboplast Time 76H 12/04/22 01:15: Activated Partial Thromboplast Time 92H 12/04/22 06:11: Activated Partial Thromboplast Time 63H, White Blood Count 13.8H, Red Blood Count 3.47L, Hemoglobin 11.4L, Hematocrit 34L, Mean Corpuscular Volume 98, Mean Corpuscular Hemoglobin 33, Mean Corpuscular Hemoglobin Concent 33, Red Cell Distribution Width 13.4, Platelet Count 280, Mean Platelet Volume 11.0, Sodium Level 139, Potassium Level 3.1L, Chloride Level 108H, Carbon Dioxide Level 20L, Anion Gap 11, Blood Urea Nitrogen 16, Creatinine 0.88, Estimat Glomerular Filtration Rate 93, BUN/Creatinine Ratio 18, Glucose Level 115H, Calcium Level 8.0L 12/04/22 14:03: Activated Partial Thromboplast Time 92H A/P: Assessment/Dx: Perforated sigmoid diverticulitis, Persistent atrial fibrillation, Recent atrial fibrillation ablation, Chronic oral anticoagulation, CAD, previous PCI Plan: Perforated sigmoid diverticulitis, defer to the primary team. Persistent atrial fibrillation, on IV heparin. Changed to oral anticoagulation when okay with the surgical team. Recent atrial fibrillation ablation, received colchicine for post atrial fibrillation ablation myopericarditis. Feeling much better. Restart Multaq 400 mg twice daily. Chronic oral anticoagulation, currently on IV heparin. CAD, previous PCI 1-1/2-year ago. Was initially on aspirin and Plavix. Currently on aspirin only. No active symptoms. Echocardiogram showed preserved LV function with no significant valvular heart disease Radha HERRERA MD Dec 04, 2022 17:17
[2022-12-04 20:05] VITALS: BP 150/81
[2022-12-04] MEDS: ROSUVASTATIN 10 MG TABLET PO SCH (20:34)
[2022-12-04] MEDS: PANTOPRAZOLE 40 MG TABLET PO SCH (20:35)
[2022-12-04] MEDS: DRONEDARONE 400 MG TABLET PO SCH (20:35)
[2022-12-04] MEDS: SERTRALINE 50 MG TABLET PO SCH (20:36)
[2022-12-04] MEDS ORDERED: DRONEDARONE 400 MG TABLET PO SCH (21:00)
[2022-12-04 23:50] VITALS: BP 152/75
[2022-12-05] VITALS (7 sets, daily range): BP systolic 124–152; BP diastolic 68–79
[2022-12-05] MEDS: HYDROcodone/ACETAMINOPHEN 5 MG/325 MG TABLET PO PRN ×4 (00:48→18:48)
[2022-12-05] MEDS: CIPROFLOXACIN 400 MG/D5W 200 ML (PRE-MIX) IV SCH ×2 (05:23→17:00)
[2022-12-05] MEDS: HEParin DRIP 25000 UNIT/500ML 500 ML IV SCH ×2 (05:32→19:53)
[2022-12-05] MEDS: SUCRALFATE 1 GM TABLET PO SCH ×2 (06:45→16:34)
[2022-12-05] MEDS: metroNIDAZOLE 500 MG/100 ML IVPB (PRE-MIX) IV SCH ×3 (06:45→21:41)
[2022-12-05 07:37] LABS: HEMATOCRIT 34 % (40-54); HEMOGLOBIN 11.4 g/dL (13.3-17.7); MEAN CORPUSCULAR HEMOGLOBIN 33 pg (25-34); MEAN CORPUSCULAR HGB CONC 34 g/dL (32-36); MEAN CORPUSCULAR VOLUME 97 fL (80-99); MEAN PLATELET VOLUME 9.6 fL (9.0-12.2); PLATELET COUNT 288 10^3/uL (130-400); WHITE BLOOD COUNT 15.7 10^3/uL (4.3-11.0)
[2022-12-05 07:58] LABS: CALCIUM 7.8 MG/DL (8.5-10.1); CREATININE SERUM 0.81 MG/DL (0.60-1.30); MAGNESIUM 1.8 MG/DL (1.6-2.4); POTASSIUM 3.1 MMOL/L (3.6-5.0)
[2022-12-05] MEDS: DRONEDARONE 400 MG TABLET PO SCH ×2 (08:07→19:59)
[2022-12-05] MEDS: PANTOPRAZOLE 40 MG TABLET PO SCH ×2 (08:07→19:59)
[2022-12-05] MEDS: COLCHICINE 0.6 MG TABLET PO SCH (08:07)
[2022-12-05] MEDS: HEParin 1000 UNIT/ML (10ML VIAL) FOR BOLUS IV SCH ×2 (09:23→23:20)
[2022-12-05] MEDS: fentaNYL INJECTION 100 MCG/2 ML VIAL IV PRN ×10 (09:28→23:20)
--- NOTE | 2022-12-05 09:52 | Progress Note ---
Subjective Date Seen by a Provider: Dec 05, 2022 Time Seen by a Provider: 09:30 Subjective/Events-last exam doing ok. pain much better controlled. having loose BM's. tolerating diet. no fever/chills Objective Exam Vital Signs Date Time Temp Pulse Resp B/P (MAP) Pulse Ox O2 Delivery O2 Flow Rate FiO2 12/05/22 08:08 94 Room Air 12/05/22 07:40 36.6 61 18 126/70 (88) 94 Room Air 12/05/22 04:00 36.8 64 20 152/75 (100) 95 Room Air 12/04/22 23:50 37.2 68 20 152/75 (100) 94 Room Air 12/04/22 20:18 91 Room Air 12/04/22 20:15 94 Room Air 12/04/22 20:05 37.2 69 18 150/81 (104) 94 Room Air 12/04/22 16:28 37.0 64 18 157/82 (107) 96 Room Air 12/04/22 11:33 36.7 66 16 162/84 (110) 93 Room Air 12/04/22 10:18 Room Air I & O 12/05/22 07:00 Intake Total 1560 ml Balance 1560 ml Capillary Refill : General Appearance: No Apparent Distress HEENT: PERRL/EOMI Neck: Full Range of Motion Respiratory: Chest Non Tender, Lungs Clear Cardiovascular: Regular Rate, Rhythm Gastrointestinal: soft, tenderness Extremity: Normal Capillary Refill Neurologic/Psychiatric: Alert, Oriented x3 Skin: Normal Color Lymphatic: No Adenopathy Results Lab Laboratory Tests 12/04/22 14:03: Activated Partial Thromboplast Time 92H 12/04/22 19:50: Activated Partial Thromboplast Time 95H 12/05/22 07:30: Activated Partial Thromboplast Time 67H, White Blood Count 15.7H, Red Blood Count 3.48L, Hemoglobin 11.4L, Hematocrit 34L, Mean Corpuscular Volume 97, Mean Corpuscular Hemoglobin 33, Mean Corpuscular Hemoglobin Concent 34, Red Cell Distribution Width 13.3, Platelet Count 288, Mean Platelet Volume 9.6, Sodium Level 137, Potassium Level 3.1L, Chloride Level 104, Carbon Dioxide Level 23, Anion Gap 10, Blood Urea Nitrogen 11, Creatinine 0.81, Estimat Glomerular Filtration Rate 95, BUN/Creatinine Ratio 14, Glucose Level 118H, Calcium Level 7.8L, Magnesium Level 1.8 Assessment/Plan Assessment/Plan Assess & Plan/Chief Complaint complicated diverticulitis with sealed perforation. cont abx. ambulate. ok for PO anticoag advance diet. HAYLEY SUH MD Dec 05, 2022 09:52
--- NOTE | 2022-12-05 10:42 | Progress Note - Hospitalist ---
Subjective HPI/CC On Admission Date Seen by Provider: Dec 05, 2022 Patient is 72-year-old male past medical history of diverticulosis, hypertension, hyperlipidemia, atrial fibrillation, coronary artery disease who presented to the emergency department due to abdominal pain. He reports his symptoms started 4 to 5 days ago and describes it as lower abdominal pain. He noticed his urine to be darker and so thought he was dehydrated and tried to drink more fluids. Despite this his abdominal pain worsened and spread across his entire abdomen. He presented to the emergency department and a CT revealed a perforated sigmoid diverticulum with diverticulitis. He was admitted to the surgical service for conservative management. I am consulted for medical management. He reports that his abdominal pain is improved and is only bothering him when he passes gas. His biggest complaint is that he is having back pain. Subjective/Events-last exam Pt reports worsening abd pain. Had a BM this morning and had very severe abd pain which has persisted for an hour. Can hardly sit still due to the pain. Thinks he is more distended. Objective Exam Vital Signs Vital Signs Date Time Temp Pulse Resp B/P (MAP) Pulse Ox O2 Delivery O2 Flow Rate FiO2 12/05/22 08:08 94 Room Air 12/05/22 07:40 36.6 61 18 126/70 (88) Capillary Refill : General Appearance: Other (appears to be in pain) Respiratory: Lungs Clear Cardiovascular: Regular Rate, Rhythm Gastrointestinal: Distended, Guarding (sitting in chair and quite apprehension of anytouch), Tenderness (diffuse) Neurologic/Psychiatric: Alert, Oriented x3 Results/Procedures Lab Laboratory Tests 12/05/22 07:30 Patient resulted labs reviewed. Imaging: Reviewed Imaging Report Assessment/Plan Assessment and Plan Assess & Plan/Chief Complaint Perforated diverticulum and diverticulitis Management per primary NPO IV abx Fentanyl for pain Stat KUB Spoke with Dr Suero and alerted him of change in condition A-fib Regular on exam heparin gtt- was going to switch to Xarelto but will need to see KUB and talk to Surgery first Continue home multaq HTN HLD CAD No acute needs dvt ppx: Heparin gtt Diagnosis/Problems Diagnosis/Problems (1) Hypertension (2) Hyperlipidemia (3) CAD (coronary artery disease) (4) Chronic back pain (5) Perforation of sigmoid colon due to diverticulitis Status: Acute (6) Atrial fibrillation Status: Acute MAITE ROBERTO MD Dec 05, 2022 10:42
--- NOTE | 2022-12-05 10:57 | Diagnostic Imaging Report ---
EXAMINATION: Abdominal radiographs, single view, 2 images. DATE: December 05, 2022. CLINICAL INDICATION: 72-year-old male, abdominal pain. Perforated sigmoid. COMPARISON: CT abdomen pelvis December 01, 2022. COMMENTS: There are gas-filled segments of bowel which are not grossly distended. There is no identified free intraperitoneal air, pneumatosis, portal venous gas. IMPRESSION: 1. No radiographically apparent free intraperitoneal air. 2. No grossly distended gas-filled segments of bowel. Dictated by: Dictated on workstation # [id number]
--- NOTE | 2022-12-05 13:45 | Cardiology Progress Note ---
Cardiology SOAP Progress Note Subjective: c/o abdominal pain Objective: I&O/Vital Signs 12/05/22 12/05/22 12/05/22 12/05/22 07:40 08:08 11:36 11:41 Temp 36.6 37.0 36.6 Pulse 61 67 61 Resp 18 18 B/P (MAP) 126/70 (88) 136/71 (92) Pulse Ox 94 94 94 94 O2 Delivery Room Air Room Air Room Air FiO2 21 12/05/22 12/05/22 11:44 15:49 Temp 36.6 Pulse 64 Resp 19 B/P (MAP) 133/76 (95) Pulse Ox 94 93 O2 Delivery Room Air 12/05/22 00:00 Intake Total 1320 ml Balance 1320 ml Weight (Pounds): 187 Weight (Calculated Kilograms): 84.415903 Constitutional: AAO x 3 Respiratory: lungs clear to auscultation Cardiovascular: regular rate-rhythm, S1 and S2 Skin: normal color, warm/dry Results/Procedures: Labs Laboratory Tests 12/04/22 19:50: Activated Partial Thromboplast Time 95H 12/05/22 07:30: Activated Partial Thromboplast Time 67H, White Blood Count 15.7H, Red Blood Count 3.48L, Hemoglobin 11.4L, Hematocrit 34L, Mean Corpuscular Volume 97, Mean Corpuscular Hemoglobin 33, Mean Corpuscular Hemoglobin Concent 34, Red Cell Dis tribution Width 13.3, Platelet Count 288, Mean Platelet Volume 9.6, Sodium Level 137, Potassium Level 3.1L, Chloride Level 104, Carbon Dioxide Level 23, Anion Gap 10, Blood Urea Nitrogen 11, Creatinine 0.81, Estimat Glomerular Filtration Rate 95, BUN/Creatinine Ratio 14, Glucose Level 118H, Calcium Level 7.8L, Magnesium Level 1.8 12/05/22 15:15: Activated Partial Thromboplast Time 162*H A/P: Assessment/Dx: Perforated sigmoid diverticulitis, Persistent atrial fibrillation, Recent atrial fibrillation ablation, Chronic oral anticoagulation, CAD, previous PCI Plan: Perforated sigmoid diverticulitis, defer to the primary team. Persistent atrial fibrillation, on IV heparin. Changed to oral anticoagulation when okay with the surgical team. Recent atrial fibrillation ablation, received colchicine for post atrial fibrillation ablation myopericarditis. Feeling much better. Restarted Multaq 400 mg twice daily yesterday Chronic oral anticoagulation, currently on IV heparin. CAD, previous PCI 1-1/2-year ago. Was initially on aspirin and Plavix. Currently on aspirin only. No active symptoms. Echocardiogram showed preserved LV function with no significant valvular heart disease Radha HERRERA MD Dec 05, 2022 13:45
[2022-12-05] MEDS: 1/2 NS IV SOLUTION 1000 ML 1,000 ML IV SCH (14:57)
[2022-12-05] MEDS ORDERED: RIVAROXABAN 20 MG TABLET PO SCH (17:00)
[2022-12-05 18:56] LABS: HEMATOCRIT 38 % (40-54); HEMOGLOBIN 12.5 g/dL (13.3-17.7); MEAN CORPUSCULAR HEMOGLOBIN 32 pg (25-34); MEAN CORPUSCULAR HGB CONC 33 g/dL (32-36); MEAN CORPUSCULAR VOLUME 97 fL (80-99); PLATELET COUNT 328 10^3/uL (130-400)
[2022-12-05] MEDS: SERTRALINE 50 MG TABLET PO SCH (19:59)
[2022-12-05] MEDS: ROSUVASTATIN 10 MG TABLET PO SCH (19:59)
[2022-12-06] MEDS: HEParin DRIP 25000 UNIT/500ML 500 ML IV SCH ×2 (00:21→19:51)
[2022-12-06 03:37] VITALS: BP 143/74
[2022-12-06 05:22] LABS: HEMATOCRIT 35 % (40-54); HEMOGLOBIN 11.8 g/dL (13.3-17.7); MEAN CORPUSCULAR HEMOGLOBIN 33 pg (25-34); MEAN CORPUSCULAR HGB CONC 34 g/dL (32-36); MEAN CORPUSCULAR VOLUME 96 fL (80-99); MEAN PLATELET VOLUME 9.8 fL (9.0-12.2); PLATELET COUNT 316 10^3/uL (130-400); WHITE BLOOD COUNT 18.2 10^3/uL (4.3-11.0)
[2022-12-06 05:40] LABS: CALCIUM 7.8 MG/DL (8.5-10.1); CREATININE SERUM 0.83 MG/DL (0.60-1.30); POTASSIUM 2.9 MMOL/L (3.6-5.0)
[2022-12-06] MEDS: metroNIDAZOLE 500 MG/100 ML IVPB (PRE-MIX) IV SCH ×3 (05:45→22:27)
[2022-12-06] MEDS: SUCRALFATE 1 GM TABLET PO SCH ×2 (05:47→17:38)
[2022-12-06] MEDS: 1/2 NS IV SOLUTION 1000 ML 1,000 ML IV SCH ×3 (05:47→22:27)
--- NOTE | 2022-12-06 06:47 | Progress Note - Surgery ---
HAMZAH MCCARTHY 12/06/22 0647: Subjective Date Seen by a Provider: Dec 06, 2022 Time Seen by a Provider: 06:39 Subjective/Events-last exam Pt is a 72 y/o male with continued abd pain, worse in the periumbilical region. He states that his pain is at a 3-4/10 today and worsens when a gas pocket moves or while urinating. He reports that yesterday, he had constant 11/10 abd pain to the point where he could not stay seated he was in so much pain. Dr. Suero saw him at that time and he was switched back to an NPO diet. He reports his pain subsided and now he feels better today. He reports that his abd feels distended as well as his scrotum. States that it feels like he was "kicked in the groin". Notes that his urine is darker than normal but denies any redness. No BM today. Denies fever, SOB, chest pain, or vomiting. Review of Systems General: No Chills, No Night Sweats HEENT: No Head Aches, No Visual Changes Pulmonary: No Dyspnea, No Cough Cardiovascular: No: Chest Pain, Lt Headedness Gastrointestinal: Abdominal Pain; No: Nausea, Vomiting, Melena, Hematochezia Genitourinary: No Dysuria, No Incontinence Musculoskeletal: No: neck pain, shoulder pain Neurological: No: Change in speech, Confusion Focused Exam Sepsis Stage: Ruled Out Respiratory: No Accessory Muscle Use, No Respiratory Distress Cardiovascular: No JVD, Normal Peripheral Pulses Peripheral Pulses: 2+ Radial Pulses (R), 2+ Radial Pulses (L) Skin: normal color, warm/dry Objective Exam Vital Signs Date Time Temp Pulse Resp B/P (MAP) Pulse Ox O2 Delivery O2 Flow Rate FiO2 12/06/22 03:37 36.3 66 19 143/74 (97) 95 Room Air 12/05/22 23:30 36.2 88 19 124/68 (86) 93 Room Air 12/05/22 20:57 36.6 69 19 134/79 (97) 93 Room Air 12/05/22 20:00 Room Air 12/05/22 15:49 36.6 64 19 133/76 (95) 93 12/05/22 11:44 94 Room Air 12/05/22 11:41 36.6 61 94 21 12/05/22 11:36 37.0 67 18 136/71 (92) 94 Room Air 12/05/22 08:08 94 Room Air 12/05/22 07:40 36.6 61 18 126/70 (88) 94 Room Air I & O 12/06/22 07:00 Intake Total 1050 ml Balance 1050 ml Capillary Refill : General Appearance: No Apparent Distress, WD/WN HEENT: PERRL/EOMI, Normal ENT Inspection Neck: Full Range of Motion, Normal Inspection Respiratory: No Accessory Muscle Use, No Respiratory Distress Cardiovascular: Regular Rate, Rhythm, Normal Peripheral Pulses Peripheral Pulses: 2+ Radial Pulses (R), 2+ Radial Pulses (L) Gastrointestinal: distended (more distended than on 12/03); No guarding; tenderness (periumbilical pain intermittently. Minimal tenderness to palpation) Extremity: Normal Capillary Refill Neurologic/Psychiatric: Alert, Oriented x3 Skin: Normal Color, Warm/Dry Lymphatic: No Adenopathy Results Lab Laboratory Tests 12/05/22 07:30: White Blood Count 15.7H, Red Blood Count 3.48L, Hemoglobin 11.4L, Hematocrit 34L , Mean Corpuscular Volume 97, Mean Corpuscular Hemoglobin 33, Mean Corpuscular Hemoglobin Concent 34, Red Cell Distribution Width 13.3, Platelet Count 288, Mean Platelet Volume 9.6, Activated Partial Thromboplast Time 67H, Sodium Level 137, Potassium Level 3.1L, Chloride Level 104, Carbon Dioxide Level 23, Anion Gap 10, Blood Urea Nitrogen 11, Creatinine 0.81, Estimat Glomerular Filtration Rate 95, BUN/Creatinine Ratio 14, Glucose Level 118H, Calcium Level 7.8L, Magnesium Level 1.8 12/05/22 15:15: Activated Partial Thromboplast Time 162*H 12/05/22 18:28: White Blood Count 19.0H, Red Blood Count 3.90L, Hemoglobin 12.5L, Hematocrit 38L , Mean Corpuscular Volume 97, Mean Corpuscular Hemoglobin 32, Mean Corpuscular Hemoglobin Concent 33, Red Cell Distribution Width 13.5, Platelet Count 328, Mean Platelet Volume 10.0, Activated Partial Thromboplast Time 71H 12/05/22 21:58: Activated Partial Thromboplast Time 26 12/06/22 05:06: White Blood Count 18.2H, Red Blood Count 3.61L, Hemoglobin 11.8L, Hematocrit 35L , Mean Corpuscular Volume 96, Mean Corpuscular Hemoglobin 33, Mean Corpuscular Hemoglobin Concent 34, Red Cell Distribution Width 13.3, Platelet Count 316, Mean Platelet Volume 9.8, Activated Partial Thromboplast Time 183*H, Sodium Level 136, Potassium Level 2.9L, Chloride Level 102, Carbon Dioxide Level 23, Anion Gap 11, Blood Urea Nitrogen 11, Creatinine 0.83, Estimat Glomerular Filtration Rate 94, BUN/Creatinine Ratio 13, Glucose Level 124H, Calcium Level 7.8L Assessment/Plan Assessment/Plan Assessment/Plan Abdominal pain Complicated diverticulitis with sealed perforation. Afib CAD Leukocytosis Hypokalemia Abd X-ray 12/05: No radiographically apparent free intraperitoneal air. No gross ly distended gas-filled segments of bowel Continue metronidazole and cipro. WBC is 18.2 today. Yesterday it was 15.7 in the AM and 19 in the PM. Ambulate. NPO On IV heparin. aPTT today was 183. Yesterday it was also elevated at 162 and heparin drip had to be decreased from 31.4 to 25.9. Follow up with attending hospitalist. Potassium is 2.9 today. Potassium chloride started. Monitor. Consider surgical exploration due to increase in WBC and persistence of symptoms despite conservative management. ROCIO SMITH DO 12/06/222046: Subjective Subjective/Events-last exam Pain significantly better than yesterday. No about a 3/10. More gas pocket/pressure pain. Currently NPO. WBC Minimally down from yesterday. More distended feeling. Denies n/v fever sweats chills shortness of breath or chest pain. Objective Exam General Appearance: No Apparent Distress, WD/WN HEENT: PERRL/EOMI, Normal ENT Inspection Neck: Normal Inspection Respiratory: Chest Non Tender, No Accessory Muscle Use, No Respiratory Distress Cardiovascular: Regular Rate, Rhythm, No JVD Gastrointestinal: soft, distended (more distended than on 12/03); No guarding; tenderness (minimal tenderness on my exam today not peritoneal) Extremity: Normal Capillary Refill Neurologic/Psychiatric: Alert, Oriented x3 Skin: Normal Color, Warm/Dry Lymphatic: No Adenopathy Assessment/Plan Assessment/Plan Assessment/Plan Abdominal pain diffuse Complicated diverticulitis with sealed perforation. Afib CAD Leukocytosis Hypokalemia Abd X-ray 12/05: No radiographically apparent free intraperitoneal air. No g rossly distended gas-filled segments of bowel Continue metronidazole and cipro. WBC is 18.2 today. Yesterday it was 15.7 in the AM and 19 in the PM. Ambulate. NPO On IV heparin drip would not convert to po incase need to go to surgery Potassium is 2.9 today. Potassium replacement repeat labs in am. may need to repeat ct Supervisory-Addendum Brief Verification & Attestation Participated in pt care: history, MDM, physical Personally performed: exam, history, MDM, supervision of care Care discussed with: Medical Student Procedures: n/a Results interpretation: Verified all documentation Verification and Attestation of Medical Student E/M Service A medical student performed and documented this service in my presence. I reviewed and verified all information documented by the medical student and made modifications to such information, when appropriate. I personally performed the physical exam and medical decision making. Rocio Smith, Dec 06, 2022,20:47 HAMZAH MCCARTHY Dec 06, 2022 06:47 ROCIO SMITH DO Dec 06, 2022 20:47
[2022-12-06 07:23] VITALS: BP 150/70
[2022-12-06] MEDS: DRONEDARONE 400 MG TABLET PO SCH ×2 (07:48→19:52)
[2022-12-06] MEDS: PANTOPRAZOLE 40 MG TABLET PO SCH ×2 (07:49→19:52)
[2022-12-06] MEDS: COLCHICINE 0.6 MG TABLET PO SCH (07:49)
[2022-12-06] MEDS: POTASSIUM CL 10MEQ/50ML IVPB 50 ML IV SCH ×4 (07:50→11:05)
[2022-12-06] MEDS: fentaNYL INJECTION 100 MCG/2 ML VIAL IV PRN ×4 (09:52→19:53)
[2022-12-06] MEDS: HYDROcodone/ACETAMINOPHEN 5 MG/325 MG TABLET PO PRN ×3 (10:02→20:05)
[2022-12-06 11:29] VITALS: BP 128/72
--- NOTE | 2022-12-06 11:47 | Cardiology Progress Note ---
Subjective Date Seen by Provider: Dec 06, 2022 Time Seen by Provider: 08:55 Subjective/Events-last exam Patient is sitting up in chair, no new complaints. Objective-Cardiology Exam Last Set of Vital Signs Vital Signs 12/05/22 12/06/22 11:41 11:29 Temp 36.8 Pulse 64 Resp 17 B/P (MAP) 128/72 (90) Pulse Ox 94 O2 Delivery Room Air FiO2 21 I&O Intake and Output 12/06/22 00:00 Intake Total 1290 ml Balance 1290 ml Intake Oral 1050 ml Tube Feeding 240 ml # Voids 11 # Bowel Movements 1 General: Alert, Oriented X3 HEENT: Atraumatic, PERRLA Neck: Supple Lungs: Clear to Auscultation, Normal Air Movement Heart: Regular Rate Abdomen: Normal Bowel Sounds, Soft Extremities: No Edema Skin: No Rashes, No Significant Lesion Psych/Mental Status: Mental Status NL, Mood NL Results Lab Laboratory Tests 12/05/22 18:28 12/06/22 05:06 A/P-Cardiology Admission Diagnosis Perforated sigmoid diverticulitis PAF HTN HLP Assessment/Plan Perforated sigmoid diverticulitis, management per surgeon and medical services. Coronary artery disease, underwent LHC on Dec 10, 2020 with severe stenosis in the distal LAD with successful primary stenting using 2.5 x 23 Rochelle stent expanded to 2.7 mm. Severe stenosis at the first diagonal artery, fairly small and tortuous artery, balloon angioplasty was done to the proximal artery, there is significant recoiling, the artery is 2 mm in diameter at max, cannot support a stent. Otherwise mild disease in the circumflex artery and right coronary artery. Paroxysmal atrial fibrillation, underwent ROMANA with electrical cardioversion, currently in sinus rhythm, maintained on Multaq 400 mg twice daily as outpatient. Review of the Zio patch on May 24, 2022 showed multiple short paroxysmal atrial tachycardia, wide complex tachycardia, possible 5 beats nonsustained ventricular tachycardia vs afib with abberant conduction. Asymptomatic Started on Toprol XL 25mg daily, medication was discontinued d/t bradycardia and fatigue. Patient was referred to Dr. Bellamy, underwent ablation last month. Multaq restarted Currently on heparin. Restart OAC when deemed ok by surgeon [id number] score of 2, yearly risk of stroke without oral anticoagulation is 2.2%, maintained on Xarelto, currently on hold Chest pain, atypical, reporting improvement. Hypertension, controlled on current medication, monitor blood pressure Hyperlipidemia, maintained on statin Family history of atrial fibrillation and flutter, had brother who had ablation. Mild bilateral carotid stenosis, ultrasound was done in February 2022. Continue to monitor Supervisory-Addendum Brief Supervisory Addendum Participated in pt care: history, MDM, physical Personally performed: exam, history, MDM Care discussed with: APOLLO Results interpretation: Verified all documentation Notes: Patient was seen and evaluated with Laura, examination performed, management plan was discussed, agree with the current scribed note, I made few changes to the note using Italic font Patient was seen at bedside, sitting comfortably, feeling better No new complaint Will need to restart oral anticoagulation when deemed reasonable by the surgeon, currently maintained on heparin LAURA Arauz Dec 06, 2022 11:47 ANMOL LIU MD Dec 06, 2022 12:10
[2022-12-06] MEDS: CIPROFLOXACIN IV 400MG/200ML 200 ML IV SCH (13:43)
[2022-12-06 16:15] VITALS: BP 153/77
--- NOTE | 2022-12-06 17:29 | Progress Note - Hospitalist ---
Subjective HPI/CC On Admission Date Seen by Provider: Dec 06, 2022 Time Seen by Provider: 12:00 Patient is 72-year-old male past medical history of diverticulosis, hypertension, hyperlipidemia, atrial fibrillation, coronary artery disease who presented to the emergency department due to abdominal pain. He reports his sym ptoms started 4 to 5 days ago and describes it as lower abdominal pain. He noticed his urine to be darker and so thought he was dehydrated and tried to drink more fluids. Despite this his abdominal pain worsened and spread across his entire abdomen. He presented to the emergency department and a CT revealed a perforated sigmoid diverticulum with diverticulitis. He was admitted to the surgical service for conservative management. I am consulted for medical management. He reports that his abdominal pain is improved and is only bothering him when he passes gas. His biggest complaint is that he is having back pain. Subjective/Events-last exam He is feeling better today. He still has some abdominal pain. He denies vomiting. He has not been allowed do eat or drink. Objective Exam Vital Signs Vital Signs Date Time Temp Pulse Resp B/P (MAP) Pulse Ox O2 Delivery O2 Flow Rate FiO2 12/06/22 16:15 36.8 65 20 153/77 (102) 95 Room Air 12/05/22 11:41 21 Capillary Refill : General Appearance: No Apparent Distress, Obese Respiratory: Lungs Clear, No Respiratory Distress Cardiovascular: Regular Rate, Rhythm, No Murmur Gastrointestinal: Normal Bowel Sounds, Soft Extremity: Normal Inspection, Pedal Edema Neurologic/Psychiatric: Alert, Normal Mood/Affect Skin: Normal Color, Warm/Dry Results/Procedures Lab Laboratory Tests 12/05/22 18:28 12/06/22 05:06 Patient resulted labs reviewed. Imaging: Reviewed Imaging Report Assessment/Plan Assessment and Plan Assess & Plan/Chief Complaint Perforated diverticulum and diverticulitis Management per primary NPO IV abx Fentanyl for pain A-fib Cardiology following Heparin gtt Continue home multaq HTN HLD CAD No acute needs dvt ppx: already receiving therapeutic anticoagulation Diagnosis/Problems Diagnosis/Problems (1) Perforation of sigmoid colon due to diverticulitis Status: Acute (2) Atrial fibrillation Status: Acute (3) Hypertension (4) Hyperlipidemia (5) CAD (coronary artery disease) RANDELL PATEL MD Dec 06, 2022 17:29
[2022-12-06] MEDS: ROSUVASTATIN 10 MG TABLET PO SCH (19:52)
[2022-12-06] MEDS: SERTRALINE 50 MG TABLET PO SCH (19:52)
[2022-12-06 19:54] VITALS: BP 166/75
[2022-12-07] VITALS (7 sets, daily range): BP systolic 134–157; BP diastolic 66–77
[2022-12-07] MEDS: CIPROFLOXACIN IV 400MG/200ML 200 ML IV SCH ×2 (00:23→13:20)
[2022-12-07] MEDS: fentaNYL INJECTION 100 MCG/2 ML VIAL IV PRN ×6 (02:36→19:55)
[2022-12-07] MEDS: HYDROcodone/ACETAMINOPHEN 5 MG/325 MG TABLET PO PRN ×4 (02:39→19:55)
[2022-12-07 05:15] LABS: HEMATOCRIT 33 % (40-54); HEMOGLOBIN 11.1 g/dL (13.3-17.7); MEAN CORPUSCULAR HEMOGLOBIN 33 pg (25-34); MEAN CORPUSCULAR HGB CONC 34 g/dL (32-36); MEAN CORPUSCULAR VOLUME 97 fL (80-99); MEAN PLATELET VOLUME 9.9 fL (9.0-12.2); PLATELET COUNT 323 10^3/uL (130-400); WHITE BLOOD COUNT 14.7 10^3/uL (4.3-11.0)
[2022-12-07] MEDS: SUCRALFATE 1 GM TABLET PO SCH ×2 (05:28→15:47)
[2022-12-07] MEDS: metroNIDAZOLE 500 MG/100 ML IVPB (PRE-MIX) IV SCH ×3 (05:28→21:55)
[2022-12-07 05:41] LABS: CALCIUM 7.9 MG/DL (8.5-10.1); CREATININE SERUM 0.85 MG/DL (0.60-1.30); MAGNESIUM 1.9 MG/DL (1.6-2.4)
[2022-12-07] MEDS: HEParin 1000 UNIT/ML (10ML VIAL) FOR BOLUS IV SCH (06:10)
--- NOTE | 2022-12-07 06:46 | Progress Note - Surgery ---
HAMZAH MCCARTHY 12/07/22 0646: Subjective Date Seen by a Provider: Dec 07, 2022 Time Seen by a Provider: 06:39 Subjective/Events-last exam Pt is a 72 year old male with improving abd pain. He denies any continued pain from gas pockets moving around and states that he had 3 loose, watery bowel mo vements overnight without any associated pain. Reports no change in abd distention. States that he has had no change in the scrotal swelling he mentioned yesterday but notes that it bothers him and wonders if it may be causing any kind of damage. Reports mild swelling in his shins and feet. Denies n/v. Denies chest pain, palpitations or SOB. Urine output is 0.77 Review of Systems General: No Chills, No Night Sweats HEENT: No Head Aches, No Visual Changes Pulmonary: No Dyspnea, No Cough Cardiovascular: No: Chest Pain, Palpitations Gastrointestinal: Abdominal Pain (mild), Diarrhea; No: Nausea, Vomiting Genitourinary: No Dysuria, No Incontinence Musculoskeletal: No: neck pain, shoulder pain Neurological: No: Change in speech, Confusion Focused Exam Sepsis Stage: Ruled Out Respiratory: No Accessory Muscle Use, No Respiratory Distress Cardiovascular: Regular Rate, Rhythm, Normal Peripheral Pulses Capillary Refill: Less Than 3 Seconds Peripheral Pulses: 2+ Radial Pulses (R), 2+ Radial Pulses (L) Skin: normal color, warm/dry Objective Exam Vital Signs Date Time Temp Pulse Resp B/P (MAP) Pulse Ox O2 Delivery O2 Flow Rate FiO2 12/07/22 04:00 36.8 61 18 150/74 (99) 94 Room Air 12/07/22 00:23 37.0 66 18 152/72 (98) 93 Room Air 12/06/22 20:40 Room Air 12/06/22 19:54 37.0 65 20 166/75 (105) 96 Room Air 12/06/22 16:15 36.8 65 20 153/77 (102) 95 Room Air 12/06/22 11:29 36.8 64 17 128/72 (90) 94 Room Air 12/06/22 08:00 Room Air 12/06/22 07:56 93 Room Air 12/06/22 07:23 37.2 67 16 150/70 (96) 94 Room Air I & O 12/07/22 07:00 Intake Total 630 ml Output Total 425 ml Balance 205 ml Capillary Refill : General Appearance: No Apparent Distress, WD/WN HEENT: PERRL/EOMI, Normal ENT Inspection Neck: Normal Inspection Respiratory: Chest Non Tender, No Accessory Muscle Use, No Respiratory Distress Cardiovascular: Regular Rate, Rhythm, No JVD Peripheral Pulses: 2+ Radial Pulses (R), 2+ Radial Pulses (L) Gastrointestinal: distended; No guarding; tenderness (minimal tenderness intermittedly. No tenderness to palptation) Extremity: Normal Capillary Refill, Pedal Edema (trace to 1+) Neurologic/Psychiatric: Alert, Oriented x3 Skin: Normal Color, Warm/Dry Lymphatic: No Adenopathy Results Lab Laboratory Tests 12/06/22 13:15: Activated Partial Thromboplast Time 118*H 12/06/22 19:07: Activated Partial Thromboplast Time 85H 12/07/22 00:54: Activated Partial Thromboplast Time 96H 12/07/22 04:58: Activated Partial Thromboplast Time 61H, White Blood Count 14.7H, Red Blood Count 3.41L, Hemoglobin 11.1L, Hematocrit 33L, Mean Corpuscular Volume 97, Mean Corpuscular Hemoglobin 33, Mean Corpuscular Hemoglobin Concent 34, Red Cell Distribution Width 13.7, Platelet Count 323, Mean Platelet Volume 9.9, Sodium Level 136, Potassium Level 3.0L, Chloride Level 103, Carbon Dioxide Level 23, Anion Gap 10, Blood Urea Nitrogen 11, Creatinine 0.85, Estimat Glomerular Filtration Rate 93, BUN/Creatinine Ratio 13, Glucose Level 115H, Calcium Level 7 .9L, Magnesium Level 1.9 Assessment/Plan Assessment/Plan Assessment/Plan Abdominal pain diffuse Complicated diverticulitis with sealed perforation. Afib CAD Leukocytosis Hypokalemia Abd pain is improved- no pain with gas or BMs Continue metronidazole and cipro. WBC is 14.7 today down from 18.2 yesterday. Monitor Ambulate. NPO. Consider advancing to clears On IV heparin drip. Would not convert to po in case he needs to go to surgery Potassium is 3 today up from 2.9 yesterday. Continue potassium replacement Repeat CT scan today ROCIO SMITH DO 12/08/22 1110: Subjective Subjective/Events-last exam Feeling well. Minimal abdominal pain. Some scrotal swelling. Having bowel function. wbc decreasing. Denies n/v fever sweats chills shortness of breath or chest pain. On heparin drip. Objective Exam General Appearance: No Apparent Distress, WD/WN HEENT: PERRL/EOMI, Normal ENT Inspection Neck: Normal Inspection, Non Tender Respiratory: Chest Non Tender, No Accessory Muscle Use, No Respiratory Distress Cardiovascular: Regular Rate, Rhythm, No JVD Gastrointestinal: distended, tenderness (minimal tenderness to palptation) Extremity: Pedal Edema (trace to 1+) Neurologic/Psychiatric: Alert, Oriented x3 Skin: Normal Color, Warm/Dry Lymphatic: No Adenopathy Assessment/Plan Assessment/Plan Assessment/Plan Abdominal pain diffuse Complicated diverticulitis with sealed perforation. Afib CAD Leukocytosis Hypokalemia Abd pain is improved- minimal pain Continue metronidazole and cipro. WBC is 14.7 today down from 18.2 yesterday. Monitor Ambulate. NPO On IV heparin drip. Would not convert to po in case he needs to go to surgery Potassium is 3 today up from 2.9 yesterday. Continue potassium replacement May repeat ct scan tomorrow. Supervisory-Addendum Brief Verification & Attestation Participated in pt care: history, MDM, physical Personally performed: exam, history, MDM, supervision of care Care discussed with: Medical Student Procedures: n/a Results interpretation: Verified all documentation Verification and Attestation of Medical Student E/M Service A medical student performed and documented this service in my presence. I reviewed and verified all information documented by the medical student and made modifications to such information, when appropriate. I personally performed the physical exam and medical decision making. Rocio Smith, Dec 07, 2022,11:40 HAMZAH MCCARTHY Dec 07, 2022 06:46 ROCIO SMITH DO Dec 08, 2022 11:10
[2022-12-07] MEDS: DRONEDARONE 400 MG TABLET PO SCH ×2 (08:12→19:46)
[2022-12-07] MEDS: POTASSIUM CL 10MEQ/50ML IVPB 50 ML IV SCH ×4 (08:12→11:41)
[2022-12-07] MEDS: COLCHICINE 0.6 MG TABLET PO SCH (08:12)
[2022-12-07] MEDS: PANTOPRAZOLE 40 MG TABLET PO SCH ×2 (08:12→19:46)
--- NOTE | 2022-12-07 11:16 | Cardiology Progress Note ---
Subjective Date Seen by Provider: Dec 07, 2022 Time Seen by Provider: 11:16 Subjective/Events-last exam Patient was seen and evaluated at bedside, sitting comfortably, no new complaint. Objective-Cardiology Exam Last Set of Vital Signs Vital Signs 12/05/22 12/07/22 11:41 07:15 Temp 36.8 Pulse 71 Resp 17 B/P (MAP) 138/70 (92) Pulse Ox 95 O2 Delivery Room Air FiO2 21 I&O Intake and Output 12/07/22 00:00 Intake Total 630 ml Balance 630 ml Intake Oral 580 ml IV Total 50 ml # Voids 12 # Bowel Movements 1 General: Alert, Oriented X3 HEENT: Atraumatic, PERRLA Neck: Supple Lungs: Clear to Auscultation, Normal Air Movement Heart: Regular Rate, Normal S1, Normal S2 Abdomen: Normal Bowel Sounds, Soft Extremities: No Edema Skin: No Rashes, No Significant Lesion Neuro: Normal Speech Psych/Mental Status: Mental Status NL, Mood NL Results Lab Laboratory Tests 12/07/22 04:58 A/P-Cardiology Admission Diagnosis Perforated sigmoid diverticulitis PAF HTN HLP Assessment/Plan Perforated sigmoid diverticulitis, management per surgeon and medical services. Coronary artery disease, underwent LHC on Dec 10, 2020 with severe stenosis in the distal LAD with successful primary stenting using 2.5 x 23 Rochelle stent expanded to 2.7 mm. Severe stenosis at the first diagonal artery, fairly small and tortuous artery, balloon angioplasty was done to the proximal artery, there is significant recoiling, the artery is 2 mm in diameter at max, cannot support a stent. Otherwise mild disease in the circumflex artery and right coronary artery. Paroxysmal atrial fibrillation, underwent ROMANA with electrical cardioversion, currently in sinus rhythm, maintained on Multaq 400 mg twice daily as outpatient. Review of the Zio patch on May 24, 2022 showed multiple short paroxysmal atrial tachycardia, wide complex tachycardia, possible 5 beats nonsustained ventricular tachycardia vs afib with abberant conduction. Asymptomatic Started on Toprol XL 25mg daily, medication was discontinued d/t bradycardia and fatigue. Patient was referred to Dr. Bellamy, underwent ablation last month. Multaq restarted Currently on heparin. Restart OAC when deemed ok by surgeon [id number] score of 2, yearly risk of stroke without oral anticoagulation is 2.2%, maintained on Xarelto, currently on hold Chest pain, atypical, reporting improvement. Hypertension, controlled on current medication, monitor blood pressure Hyperlipidemia, maintained on statin Family history of atrial fibrillation and flutter, had brother who had ablation. Mild bilateral carotid stenosis, ultrasound was done in February 2022. Continue to monitor ANMOL LIU MD Dec 07, 2022 11:16
--- NOTE | 2022-12-07 15:45 | Progress Note - Hospitalist ---
Subjective HPI/CC On Admission Date Seen by Provider: Dec 07, 2022 Time Seen by Provider: 11:50 Patient is 72-year-old male past medical history of diverticulosis, hypertension, hyperlipidemia, atrial fibrillation, coronary artery disease who presented to the emergency department due to abdominal pain. He reports his sym ptoms started 4 to 5 days ago and describes it as lower abdominal pain. He noticed his urine to be darker and so thought he was dehydrated and tried to drink more fluids. Despite this his abdominal pain worsened and spread across his entire abdomen. He presented to the emergency department and a CT revealed a perforated sigmoid diverticulum with diverticulitis. He was admitted to the surgical service for conservative management. I am consulted for medical management. He reports that his abdominal pain is improved and is only bothering him when he passes gas. His biggest complaint is that he is having back pain. Subjective/Events-last exam He is feeling better. He is not having much pain. He denies nausea and vomiting. He has no complaints. Objective Exam Vital Signs Vital Signs Date Time Temp Pulse Resp B/P (MAP) Pulse Ox O2 Delivery O2 Flow Rate FiO2 12/07/22 11:22 36.7 61 17 134/66 (88) 94 Room Air 12/05/22 11:41 21 Capillary Refill : Less Than 3 Seconds General Appearance: No Apparent Distress Respiratory: Lungs Clear, No Respiratory Distress Cardiovascular: Regular Rate, Rhythm, No Murmur Gastrointestinal: Normal Bowel Sounds, Non Tender, Soft Extremity: Normal Inspection, No Pedal Edema Neurologic/Psychiatric: Alert, Normal Mood/Affect Results/Procedures Lab Laboratory Tests 12/07/22 04:58 Patient resulted labs reviewed. Imaging: Reviewed Imaging Report Assessment/Plan Assessment and Plan Assess & Plan/Chief Complaint Perforated diverticulum and diverticulitis Management per primary NPO IV abx Fentanyl for pain A-fib Cardiology following Heparin gtt Continue multaq HTN HLD CAD No acute needs dvt ppx: already receiving therapeutic anticoagulation Diagnosis/Problems Diagnosis/Problems (1) Perforation of sigmoid colon due to diverticulitis Status: Acute (2) Atrial fibrillation Status: Acute (3) Hypertension (4) Hyperlipidemia (5) CAD (coronary artery disease) RANDELL PATEL MD Dec 07, 2022 15:45
[2022-12-07] MEDS: HEParin DRIP 25000 UNIT/500ML 500 ML IV SCH (15:46)
[2022-12-07] MEDS: 1/2 NS IV SOLUTION 1000 ML 1,000 ML IV SCH (15:49)
[2022-12-07] MEDS: SERTRALINE 50 MG TABLET PO SCH (19:46)
[2022-12-07] MEDS: ROSUVASTATIN 10 MG TABLET PO SCH (19:55)
[2022-12-08] VITALS (7 sets, daily range): BP systolic 145–167; BP diastolic 75–80
[2022-12-08] MEDS: fentaNYL INJECTION 100 MCG/2 ML VIAL IV PRN ×6 (00:15→19:58)
[2022-12-08] MEDS: CIPROFLOXACIN IV 400MG/200ML 200 ML IV SCH ×3 (00:15→23:55)
[2022-12-08] MEDS: metroNIDAZOLE 500 MG/100 ML IVPB (PRE-MIX) IV SCH ×3 (05:44→22:07)
[2022-12-08] MEDS: SUCRALFATE 1 GM TABLET PO SCH ×2 (05:44→15:50)
[2022-12-08] MEDS: HYDROcodone/ACETAMINOPHEN 5 MG/325 MG TABLET PO PRN ×3 (05:44→20:06)
--- NOTE | 2022-12-08 06:43 | Progress Note - Surgery ---
HAMZAH MCCARTHY 12/08/22 0643: Subjective Date Seen by a Provider: Dec 08, 2022 Time Seen by a Provider: 06:38 Subjective/Events-last exam Pt continues to do well. States that he has had 3 loose, more voluminous bowel movements this morning with gas. Reports brief, sharp pain during one of the b owel movements but denies all other abd pain. Reports that his abd remains distended but is nontender to palpation. Notes that the pain medication he is currently taking is less for his abd and more for his lower back which is constantly in pain (4-5/10 constantly, and 7/10 at its worst). Currently NPO. Denies n/v, chest pain or SOB. Denies fever. Review of Systems General: No Chills, No Night Sweats HEENT: No Head Aches, No Visual Changes Pulmonary: No Dyspnea, No Cough Cardiovascular: No: Chest Pain, Lt Headedness Gastrointestinal: Diarrhea; No: Nausea, Vomiting Genitourinary: No Dysuria, No Incontinence Musculoskeletal: back pain; No: shoulder pain Neurological: No: Change in speech, Confusion Focused Exam Sepsis Stage: Ruled Out Respiratory: No Accessory Muscle Use, No Respiratory Distress Cardiovascular: No JVD, Normal Peripheral Pulses Peripheral Pulses: 2+ Radial Pulses (R), 2+ Radial Pulses (L) Skin: normal color, warm/dry Objective Exam Vital Signs Date Time Temp Pulse Resp B/P (MAP) Pulse Ox O2 Delivery O2 Flow Rate FiO2 12/08/22 03:35 36.8 79 18 158/80 (106) 96 Room Air 12/07/22 23:32 36.1 69 18 155/77 (103) 96 Room Air 12/07/22 20:19 36.6 61 18 157/73 (101) 96 Room Air 12/07/22 20:00 Room Air 12/07/22 19:22 Room Air 96 12/07/22 16:37 36.9 60 18 136/73 (94) 93 Room Air 12/07/22 11:22 36.7 61 17 134/66 (88) 94 Room Air 12/07/22 08:00 Room Air 12/07/22 07:15 36.8 71 17 138/70 (92) 95 Room Air I & O 12/08/22 07:00 Intake Total 0 ml Output Total 1400 ml Balance -1400 ml Capillary Refill : Less Than 3 Seconds General Appearance: No Apparent Distress, WD/WN HEENT: PERRL/EOMI, Normal ENT Inspection Neck: Normal Inspection Respiratory: Lungs Clear, No Respiratory Distress Cardiovascular: Regular Rate, Rhythm, No Murmur Peripheral Pulses: 2+ Radial Pulses (R), 2+ Radial Pulses (L) Gastrointestinal: non tender, distended; No guarding Extremity: Normal Inspection, Pedal Edema (trace to +1) Neurologic/Psychiatric: Alert, Normal Mood/Affect Skin: Normal Color, Warm/Dry Lymphatic: No Adenopathy Results Lab Laboratory Tests 12/07/22 11:55: Activated Partial Thromboplast Time 126*H 12/07/22 18:51: Activated Partial Thromboplast Time 88H 12/08/22 00:50: Activated Partial Thromboplast Time 100H Assessment/Plan Assessment/Plan Assessment/Plan Abdominal pain diffuse Complicated diverticulitis with sealed perforation. Afib Leukocytosis Abd pain is improved- infrequent pain with bowel movements. No pain most of the time. Continue metronidazole and cipro. WBC is 14.3 today down from 14.7 yesterday. Monitor Ambulate. NPO. Consider advancing to clears On IV heparin drip. Would not convert to po in case he needs to go to surgery Repeat CT scan ROCIO CUNHA DO 12/08/22 2312: Subjective Subjective/Events-last exam Patient feeling well. Wanting diet. Back pain, but normal for him. Having bowel function. Patient denies n/v fever sweats chills shortness of breath or chest pain at this time. WBC 14.3 Objective Exam General Appearance: No Apparent Distress, WD/WN HEENT: PERRL/EOMI, Normal ENT Inspection Neck: Normal Inspection, Supple Respiratory: Chest Non Tender, No Accessory Muscle Use, No Respiratory Distress Cardiovascular: Regular Rate, Rhythm, No JVD Gastrointestinal: soft, distended, tenderness (minimal lower abdomen) Extremity: Pedal Edema (trace to +1) Neurologic/Psychiatric: Alert, Oriented x3, Normal Mood/Affect Skin: Normal Color, Warm/Dry Lymphatic: No Adenopathy Assessment/Plan Assessment/Plan Assessment/Plan Abdominal pain diffuse Complicated diverticulitis with sealed perforation. Afib Leukocytosis Abd pain is improved overall Continue metronidazole and cipro. WBC is 14.3 today down from 14.7 yesterday. Monitor Ambulate. NPO. On IV heparin drip. Would not convert to po in case he needs to go to surgery Repeat CT scan Repeat ct scan demonstrating enlarged abscess contained perforation discussed with Dr. Butcher who will place drain tomorrow. discussed with Dr. Meli rutherford to stop heparin drip at midnight for procedure. Repeat labs in am. Supervisory-Addendum Brief Verification & Attestation Participated in pt care: history, MDM, physical Personally performed: exam, history, MDM, supervision of care Care discussed with: Medical Student Procedures: n/a Results interpretation: Verified all documentation Verification and Attestation of Medical Student E/M Service A medical student performed and documented this service in my presence. I reviewed and verified all information documented by the medical student and made modifications to such information, when appropriate. I personally performed the physical exam and medical decision making. Rocio Cunha, Dec 08, 2022,23:12 HAMZAH MCCARTHY Dec 08, 2022 06:43 ROCIO CUNHA DO Dec 08, 2022 23:12
[2022-12-08 07:10] LABS: BASOPHILS # (AUTO) 0.1 10^3/uL (0.0-0.1); BASOPHILS % (AUTO) 0 % (0-10); EOSINOPHILS # (AUTO) 0.1 10^3/uL (0.0-0.3); EOSINOPHILS % (AUTO) 1 % (0-10); HEMATOCRIT 33 % (40-54); HEMOGLOBIN 11.2 g/dL (13.3-17.7); LYMPHOCYTES # (AUTO) 1.1 10^3/uL (1.0-4.0); LYMPHOCYTES % (AUTO) 7 % (12-44); MEAN CORPUSCULAR HEMOGLOBIN 33 pg (25-34); MEAN CORPUSCULAR HGB CONC 34 g/dL (32-36); MEAN CORPUSCULAR VOLUME 96 fL (80-99); MEAN PLATELET VOLUME 9.6 fL (9.0-12.2); MONOCYTES # (AUTO) 0.8 10^3/uL (0.0-1.0); MONOCYTES % (AUTO) 6 % (0-12); NEUTROPHILS # (AUTO) 12.1 10^3/uL (1.8-7.8); NEUTROPHILS % (AUTO) 85 % (42-75); PLATELET COUNT 352 10^3/uL (130-400); WHITE BLOOD COUNT 14.3 10^3/uL (4.3-11.0)
[2022-12-08] MEDS ORDERED: POTASSIUM CL 10MEQ/50ML IVPB 50 ML IV SCH (07:15)
[2022-12-08 07:21] LABS: BAND NEUTROPHILS 4 %; BASOPHILS % (MANUAL) 0 %; EOSINOPHILS % (MANUAL) 0 %; LYMPHOCYTES % (MANUAL) 8 %; MONOCYTES % (MANUAL) 8 %; NEUTROPHILS % (MANUAL) 80 %; RBC MORPH NORMAL
[2022-12-08 07:26] LABS: CALCIUM 7.7 MG/DL (8.5-10.1); CREATININE SERUM 0.87 MG/DL (0.60-1.30); MAGNESIUM 1.9 MG/DL (1.6-2.4); POTASSIUM 3.2 MMOL/L (3.6-5.0)
[2022-12-08] MEDS: DRONEDARONE 400 MG TABLET PO SCH ×2 (09:15→19:57)
[2022-12-08] MEDS: COLCHICINE 0.6 MG TABLET PO SCH (09:15)
[2022-12-08] MEDS: PANTOPRAZOLE 40 MG TABLET PO SCH ×2 (09:16→19:57)
[2022-12-08] MEDS: POTASSIUM CL 10MEQ/50ML IVPB 50 ML IV SCH ×4 (09:51→13:09)
[2022-12-08] MEDS: 1/2 NS IV SOLUTION 1000 ML 1,000 ML IV SCH ×2 (09:52→13:12)
[2022-12-08] MEDS ORDERED: IOHEXOL 350 MG/ML 100 ML (OMNIPAQUE 350) VIAL IV ONE (11:15)
[2022-12-08] MEDS ORDERED: NS 100 ML (IVPB) BAG IV ONE (11:15)
[2022-12-08] MEDS: HEParin DRIP 25000 UNIT/500ML 500 ML IV SCH (11:33)
--- NOTE | 2022-12-08 13:20 | Cardiology Progress Note ---
Subjective Date Seen by Provider: Dec 08, 2022 Time Seen by Provider: 15:00 Subjective/Events-last exam Patient is sitting up in chair, denies any chest pain Objective-Cardiology Exam Last Set of Vital Signs Vital Signs 12/07/22 12/08/22 12/08/22 19:22 15:42 15:46 Temp 36.6 Pulse 64 Resp 19 B/P (MAP) 167/77 (107) Pulse Ox 95 O2 Delivery Room Air FiO2 96 I&O Intake and Output 12/08/22 00:00 Intake Total 0 ml Output Total 1125 ml Balance -1125 ml Intake Oral 0 ml Output Urine Total 1125 ml # Voids 4 # Bowel Movements 3 General: Alert, Oriented X3 HEENT: Atraumatic, PERRLA Neck: Supple Lungs: Clear to Auscultation, Normal Air Movement Heart: Regular Rate, Normal S1, Normal S2 Abdomen: Normal Bowel Sounds, Soft Extremities: No Edema Skin: No Rashes, No Significant Lesion Neuro: Normal Speech Psych/Mental Status: Mental Status NL, Mood NL Results Lab Laboratory Tests 12/08/22 07:01 A/P-Cardiology Admission Diagnosis Perforated sigmoid diverticulitis PAF HTN HLP Assessment/Plan Perforated sigmoid diverticulitis, management per surgeon and medical services. Coronary artery disease, underwent LHC on Dec 10, 2020 with severe stenosis in the distal LAD with successful primary stenting using 2.5 x 23 Rochelle stent expanded to 2.7 mm. Severe stenosis at the first diagonal artery, fairly small and tortuous artery, balloon angioplasty was done to the proximal artery, there is significant recoiling, the artery is 2 mm in diameter at max, cannot support a stent. Otherwise mild disease in the circumflex artery and right coronary artery. Paroxysmal atrial fibrillation, underwent ROMANA with electrical cardioversion, currently in sinus rhythm, maintained on Multaq 400 mg twice daily as outpatient. Review of the Zio patch on May 24, 2022 showed multiple short paroxysmal atrial tachycardia, wide complex tachycardia, possible 5 beats nonsustained ventricular tachycardia vs afib with abberant conduction. Asymptomatic Started on Toprol XL 25mg daily, medication was discontinued d/t bradycardia and fatigue. Patient was referred to Dr. Bellamy, underwent ablation last month. Multaq restarted Currently on heparin. Restart OAC when deemed ok by surgeon [id number] score of 2, yearly risk of stroke without oral anticoagulation is 2.2%, maintained on Xarelto, currently on hold Chest pain, atypical, reporting improvement. Hypertension, controlled on current medication, monitor blood pressure Hyperlipidemia, maintained on statin Family history of atrial fibrillation and flutter, had brother who had ablation. Mild bilateral carotid stenosis, ultrasound was done in February 2022. Continue to monitor Supervisory-Addendum Brief Supervisory Addendum Participated in pt care: history, MDM, physical Personally performed: exam, history, MDM Care discussed with: APOLLO Results interpretation: Verified all documentation Notes: Patient was seen and evaluated with Laura, examination performed, management plan was discussed, agree with the current scribed note, I made few changes to the note using Italic font Patient was seen at bedside, sitting comfortably, having abdominal discomfort and back pain Discussed with Dr. Smith and will hold heparin at midnight in preparation for the drainage of the abscess Continue to monitor heart rate and blood pressure Continue to hold oral anticoagulation for now LAURA VALLADARES Dec 08, 2022 13:20 ANMOL LIU MD Dec 08, 2022 17:24
--- NOTE | 2022-12-08 15:40 | Diagnostic Imaging Report ---
EXAMINATION: CT abdomen and pelvis with intravenous contrast. TECHNIQUE: Multiple contiguous axial images were obtained through the abdomen and pelvis after the uneventful administration of intravenous contrast. All CT scans use one or more of the following dose optimizing techniques: automated exposure control, MA and/or KvP adjustment based on patient size and exam type or iterative reconstruction. HISTORY: Perforated diverticulitis COMPARISON: 12/01/2022 FINDINGS: Lung bases: Bibasilar dependent atelectasis. Small bilateral pleural effusions are present. Solid organs: The liver is normal without focal lesion. The gallbladder is normal. There is no biliary ductal dilation. Pancreas is normal. Spleen is normal. Adrenal glands are normal. The kidneys are normal without hydronephrosis. Bowel: The stomach is unremarkable. There is no bowel obstruction. There is likely reactive inflammation of the distal ileum in the right lower quadrant adjacent to the contained perforation. Wall thickening and inflammatory stranding of the sigmoid colon with numerous diverticula present. The remainder of the colon is unremarkable. The appendix is normal. Peritoneum: There is mild free fluid seen within the abdomen and pelvis. There is a loculated fluid collection within the right lower quadrant measuring 8.3 x 4.6 cm, increased in size from prior exam. No suspicious lymphadenopathy. Vasculature: Calcification of the aorta without aneurysm. Musculoskeletal: Degenerative changes of the spine without suspicious osseous lesion or compression fracture. There is mild anasarca. Pelvis: The prostate gland is normal. Mild wall thickening of the superior margin of the urinary bladder likely reactive inflammation. IMPRESSION: 1. Increasing size of the contained perforation in the right lower quadrant likely secondary to sigmoid diverticulitis. 2. Likely reactive inflammation of wall thickening of the small bowel and urinary bladder within the pelvis and right lower quadrant. 3. Mild free fluid seen throughout the abdomen and pelvis. 4. Small bilateral pleural effusions with bibasilar atelectasis. Dictated by: Dictated on workstation # [id number]
[2022-12-08] MEDS ORDERED: FUROSEMIDE INJECTION 40 MG/4 ML VIAL IVP NR (15:45)
--- NOTE | 2022-12-08 18:33 | Progress Note - Hospitalist ---
Subjective HPI/CC On Admission Date Seen by Provider: Dec 08, 2022 Time Seen by Provider: 11:30 Patient is 72-year-old male past medical history of diverticulosis, hypertension, hyperlipidemia, atrial fibrillation, coronary artery disease who presented to the emergency department due to abdominal pain. He reports his sym ptoms started 4 to 5 days ago and describes it as lower abdominal pain. He noticed his urine to be darker and so thought he was dehydrated and tried to drink more fluids. Despite this his abdominal pain worsened and spread across his entire abdomen. He presented to the emergency department and a CT revealed a perforated sigmoid diverticulum with diverticulitis. He was admitted to the surgical service for conservative management. I am consulted for medical management. He reports that his abdominal pain is improved and is only bothering him when he passes gas. His biggest complaint is that he is having back pain. Subjective/Events-last exam His symptoms are improved. He has not been eating and drinking. He has no complaints. Objective Exam Vital Signs Vital Signs Date Time Temp Pulse Resp B/P (MAP) Pulse Ox O2 Delivery O2 Flow Rate FiO2 12/08/22 15:46 36.6 64 95 12/08/22 15:42 19 167/77 (107) Room Air 12/07/22 19:22 96 Capillary Refill : Less Than 3 Seconds General Appearance: No Apparent Distress, Obese Respiratory: Lungs Clear, No Respiratory Distress Cardiovascular: Regular Rate, Rhythm, No Murmur Gastrointestinal: Normal Bowel Sounds, Soft Extremity: Normal Inspection, Pedal Edema Neurologic/Psychiatric: Alert, Normal Mood/Affect Results/Procedures Lab Laboratory Tests 12/08/22 07:01 Patient resulted labs reviewed. Imaging: Reviewed Imaging Report Assessment/Plan Assessment and Plan Assess & Plan/Chief Complaint Perforated diverticulum and diverticulitis Management per primary NPO IV abx Fentanyl for pain Repeat CT ordered A-fib Cardiology following Heparin gtt Continue multaq HTN HLD CAD No acute needs dvt ppx: already receiving therapeutic anticoagulation Diagnosis/Problems Diagnosis/Problems (1) Perforation of sigmoid colon due to diverticulitis Status: Acute (2) Atrial fibrillation Status: Acute (3) Hypertension (4) Hyperlipidemia (5) CAD (coronary artery disease) RANDELL PATEL MD Dec 08, 2022 18:33
[2022-12-08] MEDS: ROSUVASTATIN 10 MG TABLET PO SCH (19:57)
[2022-12-08] MEDS: SERTRALINE 50 MG TABLET PO SCH (19:57)
[2022-12-09] VITALS (8 sets, daily range): BP systolic 126–152; BP diastolic 65–75
[2022-12-09] MEDS: fentaNYL INJECTION 100 MCG/2 ML VIAL IV PRN ×2 (00:15→22:05)
[2022-12-09] MEDS: metroNIDAZOLE 500 MG/100 ML IVPB (PRE-MIX) IV SCH ×3 (05:32→22:05)
[2022-12-09] MEDS: SUCRALFATE 1 GM TABLET PO SCH ×2 (05:32→17:42)
[2022-12-09 05:51] LABS: HEMATOCRIT 33 % (40-54); HEMOGLOBIN 11.1 g/dL (13.3-17.7); MEAN CORPUSCULAR HEMOGLOBIN 33 pg (25-34); MEAN CORPUSCULAR HGB CONC 34 g/dL (32-36); MEAN CORPUSCULAR VOLUME 96 fL (80-99); MEAN PLATELET VOLUME 9.7 fL (9.0-12.2); PLATELET COUNT 372 10^3/uL (130-400); WHITE BLOOD COUNT 13.6 10^3/uL (4.3-11.0)
[2022-12-09 06:06] LABS: INR 1.4 (0.8-1.4); PROTHROMBIN TIME PATIENT 17.6 SEC (12.2-14.7)
[2022-12-09 06:09] LABS: CALCIUM 7.8 MG/DL (8.5-10.1); CREATININE SERUM 0.93 MG/DL (0.60-1.30); POTASSIUM 3.2 MMOL/L (3.6-5.0)
--- NOTE | 2022-12-09 06:50 | Progress Note - Surgery ---
HAMZAH MCCARTHY 12/09/22 0650: Subjective Date Seen by a Provider: Dec 09, 2022 Time Seen by a Provider: 06:42 Subjective/Events-last exam Pt reports 1 BM last night without any associated abd pain. Denies any change since last visit and reports that he feels better since getting Lasix. He repor ts a decreased amount of low back pain since yesterday. He states that he did have some mild nausea but associates that with the pressure sensation he felt before getting the Lasix. Thinks that his abd may be a bit less distended. Denies vomiting, fever, SOB, CP, or palpitations. CT abd/pelvis 12/08/22: 1. Increasing size of the contained perforation in the right lower quadrant likely secondary to sigmoid diverticulitis. 2. Likely reactive inflammation of wall thickening of the small bowel and urinary bladder within the pelvis and right lower quadrant. 3. Mild free fluid seen throughout the abdomen and pelvis. 4. Small bilateral pleural effusions with bibasilar atelectasis. Review of Systems General: No Chills, No Night Sweats HEENT: No Head Aches, No Visual Changes Pulmonary: No Dyspnea, No Cough Cardiovascular: No: Chest Pain, Palpitations Gastrointestinal: No: Vomiting, Abdominal Pain Genitourinary: No Dysuria, No Frequency Musculoskeletal: back pain; No: shoulder pain Neurological: No: Change in speech, Confusion Focused Exam Sepsis Stage: Ruled Out Respiratory: No Accessory Muscle Use, No Respiratory Distress Cardiovascular: Regular Rate, Rhythm, Normal Peripheral Pulses Peripheral Pulses: 2+ Radial Pulses (R), 2+ Radial Pulses (L) Skin: normal color, warm/dry Objective Exam Vital Signs Date Time Temp Pulse Resp B/P (MAP) Pulse Ox O2 Delivery O2 Flow Rate FiO2 12/08/22 23:13 37.0 63 18 145/77 (99) 94 Room Air 12/08/22 20:00 Room Air 12/08/22 19:35 36.7 63 17 157/75 (102) 93 Room Air 12/08/22 15:46 36.6 64 95 12/08/22 15:42 36.6 64 19 167/77 (107) 95 Room Air 12/08/22 11:36 36.6 58 18 147/77 (100) 96 Room Air 12/08/22 08:00 Room Air 9/13/23 07:31 36.5 57 18 152/76 (101) 94 Room Air I & O 12/09/22 07:00 Intake Total 500 ml Output Total 1750 ml Balance -1250 ml Capillary Refill : Less Than 3 Seconds General Appearance: No Apparent Distress, WD/WN HEENT: PERRL/EOMI, Normal ENT Inspection Neck: Normal Inspection, Supple Respiratory: Chest Non Tender, No Accessory Muscle Use, No Respiratory Distress Cardiovascular: Regular Rate, Rhythm, No JVD Peripheral Pulses: 2+ Radial Pulses (R), 2+ Radial Pulses (L) Gastrointestinal: non tender, distended (less distended than yesterday) Extremity: Normal Capillary Refill, Pedal Edema (trace) Neurologic/Psychiatric: Alert, Oriented x3, Normal Mood/Affect Skin: Normal Color, Warm/Dry Lymphatic: No Adenopathy Results Lab Laboratory Tests 12/08/22 07:01: White Blood Count 14.3H, Red Blood Count 3.44L, Hemoglobin 11.2L, Hematocrit 33L , Mean Corpuscular Volume 96, Mean Corpuscular Hemoglobin 33, Mean Corpuscular Hemoglobin Concent 34, Red Cell Distribution Width 13.6, Platelet Count 352, Mean Platelet Volume 9.6, Immature Granulocyte % (Auto) 1, Neutrophils (%) (Auto) 85H, Lymphocytes (%) (Auto) 7L, Monocytes (%) (Auto) 6, Eosinophils (%) (Auto) 1, Basophils (%) (Auto) 0, Neutrophils # (Auto) 12.1H, Lymphocytes # (Auto) 1.1, Monocytes # (Auto) 0.8, Eosinophils # (Auto) 0.1, Basophils # (Auto) 0.1, Immature Granulocyte # (Auto) 0.2H, Neutrophils % (Manual) 80, Lymphocytes % (Manual) 8, Monocytes % (Manual) 8, Eosinophils % (Manual) 0, Basophils % (Manual) 0, Band Neutrophils 4, Blood Morphology Comment NORMAL, Activated Partial Thromboplast Time 85H, Sodium Level 137, Potassium Level 3.2L, Chloride Level 101, Carbon Dioxide Level 26, Anion Gap 10, Blood Urea Nitrogen 10, Creatinine 0.87, Estimat Glomerular Filtration Rate 93, BUN/Creatinine Ratio 11, Glucose Level 112H, Calcium Level 7.7L, Magnesium Level 1.9 12/09/22 05:32: White Blood Count 13.6H, Red Blood Count 3.41L, Hemoglobin 11.1L, Hematocrit 33L , Mean Corpuscular Volume 96, Mean Corpuscular Hemoglobin 33, Mean Corpuscular H emoglobin Concent 34, Red Cell Distribution Width 13.4, Platelet Count 372, Mean Platelet Volume 9.7, Activated Partial Thromboplast Time 51H, Sodium Level 139, Potassium Level 3.2L, Chloride Level 99, Carbon Dioxide Level 29, Anion Gap 11, Blood Urea Nitrogen 9, Creatinine 0.93, Estimat Glomerular Filtration Rate 88, BUN/Creatinine Ratio 10, Glucose Level 100, Calcium Level 7.8L, Prothrombin Time 17.6H, INR Comment 1.4 Assessment/Plan Assessment/Plan Assessment/Plan Abdominal pain diffuse Complicated diverticulitis with sealed perforation. Afib Leukocytosis Abd pain is improved overall Repeat ct scan 12/08/22 demonstrated enlarged abscess contained perforation. On IV heparin drip. Discussed with Dr. Meli rutherford to stop heparin drip at midnight for procedure. Last heparin dose was at 11:55 PM yesterday. Scheduled for drain placement with Dr. Butcher today. Continue metronidazole and cipro. WBC is 13.6 today down from 14.3 yesterday. Monitor Ambulate. NPO. Consider advancing to clears once drain is placed. TIMOTHY CUNHA DO 12/09/22 0759: Subjective Subjective/Events-last exam Doing well. Having bowel function. NPO. Heparin drip held for ir drain today. Understands ct scan results. Denies n/v fever sweats chills shortness of breath or chest pain. Objective Exam General Appearance: No Apparent Distress, WD/WN HEENT: PERRL/EOMI, Normal ENT Inspection Neck: Normal Inspection, Non Tender Respiratory: Chest Non Tender, No Accessory Muscle Use Cardiovascular: Regular Rate, Rhythm, No JVD Gastrointestinal: distended (less distended than yesterday), tenderness (rlq minimal) Extremity: Normal Capillary Refill, Pedal Edema (trace) Neurologic/Psychiatric: Alert, Oriented x3 Skin: Normal Color, Warm/Dry Lymphatic: No Adenopathy Assessment/Plan Assessment/Plan Assessment/Plan Abdominal pain diffuse Complicated diverticulitis with sealed perforation, intrabdominal abscess Afib Leukocytosis Abd pain is improved overall Repeat ct scan 12/08/22 demonstrated enlarged abscess contained perforation. On IV heparin drip. Discussed with Dr. Meli rutherford to stop heparin drip last night at midnight for procedure. Last heparin dose was at 11:55 PM yesterday. Scheduled for drain placement with Dr. Butcher today. Continue metronidazole and cipro. WBC is 13.6 today down from 14.3 yesterday. Monitor Ambulate. NPO. Consider advancing to clears once drain is placed. Supervisory-Addendum Brief Verification & Attestation Participated in pt care: history, MDM, physical Personally performed: exam, history, MDM, supervision of care Care discussed with: Medical Student Procedures: n/a Results interpretation: Verified all documentation Verification and Attestation of Medical Student E/M Service A medical student performed and documented this service in my presence. I reviewed and verified all information documented by the medical student and made modifications to such information, when appropriate. I personally performed the physical exam and medical decision making. Timothy Cunha, Dec 09, 2022,07:59 HAMZAH MCCARTHY Dec 09, 2022 06:50 TIMOTHY CUNHA DO Dec 09, 2022 07:59
[2022-12-09] MEDS ORDERED: NS IV 1000 ML 1,000 ML IV STA (08:12)
[2022-12-09] MEDS ORDERED: LIDOCAINE 1% INJ 10 ML VIAL INJ ONE (08:15)
[2022-12-09] MEDS ORDERED: fentaNYL INJECTION 100 MCG/2 ML VIAL IVP ONE (08:15)
[2022-12-09] MEDS ORDERED: MIDAZOLAM INJ 2 MG/2 ML VIAL IVP ONE (08:15)
[2022-12-09] MEDS: 1/2 NS IV SOLUTION 1000 ML 1,000 ML IV SCH (08:30)
--- NOTE | 2022-12-09 09:08 | Cardiology Progress Note ---
Subjective Date Seen by Provider: Dec 09, 2022 Time Seen by Provider: 09:07 Subjective/Events-last exam Patient was seen at bedside, sitting comfortably, scheduled for the procedure today Objective-Cardiology Exam Last Set of Vital Signs Vital Signs 12/07/22 12/09/22 19:22 07:29 Temp 36.5 Pulse 58 Resp 18 B/P (MAP) 152/72 (98) Pulse Ox 92 O2 Delivery Room Air FiO2 96 I&O Intake and Output 12/09/22 00:00 Intake Total 200 ml Output Total 2450 ml Balance -2250 ml Intake Oral 100 ml IV Total 100 ml Output Urine Total 2450 ml # Voids 6 # Bowel Movements 6 General: Alert, Oriented X3 HEENT: Atraumatic, PERRLA Neck: Supple Lungs: Clear to Auscultation, Normal Air Movement Heart: Regular Rate, Normal S1, Normal S2 Abdomen: Normal Bowel Sounds, Soft Extremities: No Edema Skin: No Rashes, No Significant Lesion Neuro: Normal Speech Psych/Mental Status: Mental Status NL, Mood NL Results Lab Laboratory Tests 12/09/22 05:32 A/P-Cardiology Admission Diagnosis Perforated sigmoid diverticulitis PAF HTN HLP Assessment/Plan Perforated sigmoid diverticulitis, management per surgeon and medical services. Coronary artery disease, underwent LHC on Dec 10, 2020 with severe stenosis in the distal LAD with successful primary stenting using 2.5 x 23 Rochelle stent expanded to 2.7 mm. Severe stenosis at the first diagonal artery, fairly small and tortuous artery, balloon angioplasty was done to the proximal artery, there is significant recoiling, the artery is 2 mm in diameter at max, cannot support a stent. Otherwise mild disease in the circumflex artery and right coronary artery. Paroxysmal atrial fibrillation, underwent ROMANA with electrical cardioversion, currently in sinus rhythm, maintained on Multaq 400 mg twice daily as outpatient. Review of the Zio patch on May 24, 2022 showed multiple short paroxysmal atrial tachycardia, wide complex tachycardia, possible 5 beats nonsustained ventricular tachycardia vs afib with abberant conduction. Asymptomatic Started on Toprol XL 25mg daily, medication was discontinued d/t bradycardia and fatigue. Patient was referred to Dr. Bellamy, underwent ablation last month. Multaq restarted Currently heparin on hold in preparation for the procedure. Restart OAC when deemed ok by surgeon [id number] score of 2, yearly risk of stroke without oral anticoagulation is 2.2%, maintained on Xarelto, currently on hold Chest pain, atypical, reporting improvement. Hypertension, controlled on current medication, monitor blood pressure Hyperlipidemia, maintained on statin Family history of atrial fibrillation and flutter, had brother who had ablation. Mild bilateral carotid stenosis, ultrasound was done in February 2022. Continue to monitor ANMOL LIU MD Dec 09, 2022 09:08
--- NOTE | 2022-12-09 10:19 | Pre-Op Note & Conscious Sedat ---
Pre-Operative Progress Note Date of Available H&P: Dec 09, 2022 Date H&P Reviewed: Dec 09, 2022 Time H&P Reviewed: 08:00 Pre-Op Diagnosis: diverticular abscess Moderate Sedation PreProcedure Time 08:00 ASA Score 2 Airway Lungs Heart ASA score ASA 1: a normal healthy patient ASA 2: a patient with a mild systemic disease (mid diabetes, controlled hypertension, obesity ASA 3: a patient with a severe systemic disease that limits activity (angina, COPD, prior Myocardial infarction) ASA 4: a patient with an incapacitating disease that is a constant threat to life (CHF, renal failure) ASA 5: a moribund patient not expected to survive 24 hrs. (ruptured aneurysm) ASA 6: a declared brain- patient whose organs are being harvested. For emergent operations, add the letter E after the classification Mallampati Classification Grade 2 Sedation Plan Analgesia, Amnesia, Plan communicated to team members, Discussed options with patient/fam, Discussed risks with patient/fam The patient is an appropriate candidate to undergo the planned procedure, sedation, and anesthesia. The patient immediately re-assessed prior to indication. DAKOTA GUERRERO MD Dec 09, 2022 10:19
[2022-12-09] MEDS: PANTOPRAZOLE 40 MG TABLET PO SCH ×2 (10:30→19:49)
[2022-12-09] MEDS: DRONEDARONE 400 MG TABLET PO SCH ×2 (10:30→19:49)
[2022-12-09] MEDS: COLCHICINE 0.6 MG TABLET PO SCH (10:30)
--- NOTE | 2022-12-09 10:53 | Diagnostic Imaging Report ---
INDICATION: Diverticular abscess. Patient presents for CT-guided drain placement. TECHNIQUE: All CT scans use one or more of the following dose optimizing techniques: automated exposure control, MA and/or KvP adjustment based on patient size and exam type or iterative reconstruction. FINDINGS: The patient was brought to the CT suite and placed on the table in the supine position. Axial imaging through the pelvis was performed to evaluate appropriate entry site. Procedure was performed utilizing conscious sedation with radiology nursing and constant patient monitoring. Patient was given a total of 1 mg of Versed intravenously and 100 mcg of fentanyl intravenously. Total procedure time is approximately 24 minutes. Right abdomen was prepped and draped in usual sterile fashion. A small amount of 1% lidocaine was utilized for local anesthesia. A Yueh needle was advanced from a right lateral approach and placed into the gas and fluid collection in the lower right abdomen and pelvis. The Yueh was exchanged over an .035 Amplatz guidewire. Next, a 6-Taiwanese and 8-Taiwanese dilators were used to dilate the tract. Finally, an 8.5-Taiwanese All-Purpose drain was advanced over the guidewire and placed into the gas and fluid collection. The pigtail loop was formed with the locking string. Approximately 120 mL of purulent fluid was removed. Next, the catheter was affixed to the patient's skin and placed to an accordion drain. Patient tolerated the procedure well and left the department in stable condition. IMPRESSION: Successful CT-guided percutaneous drain placement into the gas and fluid collection in the lower right abdomen and pelvis, utilizing conscious sedation. Dictated by: Dictated on workstation # [id number]
[2022-12-09] MEDS: HYDROcodone/ACETAMINOPHEN 5 MG/325 MG TABLET PO PRN ×2 (13:55→18:08)
[2022-12-09] MEDS: CIPROFLOXACIN IV 400MG/200ML 200 ML IV SCH (13:57)
[2022-12-09] MEDS: ROSUVASTATIN 10 MG TABLET PO SCH (19:49)
[2022-12-09] MEDS: SERTRALINE 50 MG TABLET PO SCH (19:49)
[2022-12-10] VITALS (7 sets, daily range): BP systolic 146–168; BP diastolic 72–78
[2022-12-10] MEDS: HYDROcodone/ACETAMINOPHEN 5 MG/325 MG TABLET PO PRN ×3 (00:55→22:30)
[2022-12-10] MEDS: CIPROFLOXACIN IV 400MG/200ML 200 ML IV SCH ×2 (00:55→14:02)
[2022-12-10] MEDS: 1/2 NS IV SOLUTION 1000 ML 1,000 ML IV SCH ×2 (00:55→16:35)
[2022-12-10] MEDS: metroNIDAZOLE 500 MG/100 ML IVPB (PRE-MIX) IV SCH ×3 (05:21→22:09)
[2022-12-10] MEDS: SUCRALFATE 1 GM TABLET PO SCH ×2 (05:21→16:35)
[2022-12-10] MEDS: fentaNYL INJECTION 100 MCG/2 ML VIAL IV PRN (06:04)
--- NOTE | 2022-12-10 07:10 | Progress Note - Surgery ---
HAMZAH MCCARTHY 12/10/22 0710: Subjective Date Seen by a Provider: Dec 10, 2022 Time Seen by a Provider: 07:04 Subjective/Events-last exam Pt states that overall he is doing well. Notes some skin pulling associated with the drain that was placed yesterday but notes this is mild. Denies any rash or bleeding around the drain site. Reports 1 BM last night with gas. States very brief and mild nausea only when he gets up to go to the restroom and associates it with pain. Denies vomiting. He states that he has been tolerating clears well and notes that he is taking it slow. Drain: 60 mL in 16 hrs Review of Systems General: No Chills, No Night Sweats HEENT: No Head Aches, No Visual Changes Pulmonary: No Dyspnea, No Cough Cardiovascular: No: Chest Pain, Palpitations Gastrointestinal: Nausea; No: Vomiting Genitourinary: No Dysuria, No Frequency Musculoskeletal: back pain; No: shoulder pain Neurological: No: Change in speech, Confusion Focused Exam Sepsis Stage: Ruled Out Respiratory: No Accessory Muscle Use, No Respiratory Distress Cardiovascular: Regular Rate, Rhythm, Normal Peripheral Pulses Peripheral Pulses: 2+ Radial Pulses (R), 2+ Radial Pulses (L) Skin: normal color, warm/dry; No rash Objective Exam Vital Signs Date Time Temp Pulse Resp B/P (MAP) Pulse Ox O2 Delivery O2 Flow Rate FiO2 12/10/22 04:00 36.8 62 18 168/78 (108) 92 Room Air 12/10/22 00:55 37.4 61 18 154/78 (103) 92 Room Air 12/09/22 19:50 Room Air 12/09/22 19:38 37.0 64 18 145/70 (95) 93 Room Air 12/09/22 15:35 36.5 58 18 132/69 (90) 92 Room Air 12/09/22 11:45 36.4 60 18 144/69 (94) 92 Room Air 12/09/22 09:57 58 15 126/65 94 Room Air 12/09/22 09:46 64 12 144/75 99 12/09/22 09:37 64 16 146/73 98 12/09/22 09:33 67 17 146/75 98 Nasal Cannula 2.00 12/09/22 08:00 Room Air 12/09/22 07:29 36.5 58 18 152/72 (98) 92 Room Air I & O 12/10/22 07:00 Intake Total 2120 ml Output Total 60 ml Balance 2060 ml Capillary Refill : Less Than 3 Seconds General Appearance: No Apparent Distress, WD/WN HEENT: PERRL/EOMI, Normal ENT Inspection Neck: Normal Inspection, Non Tender Respiratory: Chest Non Tender, No Accessory Muscle Use Cardiovascular: Regular Rate, Rhythm, No JVD Peripheral Pulses: 2+ Radial Pulses (R), 2+ Radial Pulses (L) Gastrointestinal: distended, tenderness (rlq tenderness to deep palpation ) Extremity: Normal Capillary Refill, Pedal Edema (trace) Neurologic/Psychiatric: Alert, Oriented x3 Skin: Normal Color, Warm/Dry Lymphatic: No Adenopathy Results Lab Laboratory Tests 12/09/22 10:07: Activated Partial Thromboplast Time 45H 12/10/22 05:45: Platelet Count 422H Assessment/Plan Assessment/Plan Assessment/Plan Abdominal pain diffuse Complicated diverticulitis with sealed perforation, intrabdominal abscess Afib Leukocytosis Abd pain is improved overall CT scan 12/08/22 demonstrated enlarged abscess contained perforation. Drain placed on R side of abd on 12/09/[address] Butcher. Has drained 60 mL over 16 hrs from abscess. Continue to monitor Continue metronidazole and cipro. WBC is 17.8 today increased from 13.6 yesterday. Monitor. Ambulate. Heparin IV drip restarted this morning. Clears. Tolerating well. ROCIO SMITH DO 12/10/22 2019: Subjective Subjective/Events-last exam Patient feeling okay. Mild discomfort after drain placed. Having bowel functi on. WBC increased. Back on heparin drip. Slight nausea at times. Tolerating clears he states and going slow. Denies fever sweats chills shortness of breath or chest pain. Objective Exam General Appearance: No Apparent Distress, WD/WN HEENT: PERRL/EOMI, Normal ENT Inspection Neck: Normal Inspection, Non Tender Respiratory: Chest Non Tender, No Accessory Muscle Use, No Respiratory Distress Gastrointestinal: soft, distended (minimal), tenderness (rlq tenderness to deep palpation, drain rlq) Extremity: Normal Capillary Refill, Pedal Edema (trace) Neurologic/Psychiatric: Alert, Oriented x3 Skin: Normal Color, Warm/Dry Lymphatic: No Adenopathy Assessment/Plan Assessment/Plan Assessment/Plan Abdominal pain diffuse Complicated diverticulitis with sealed perforation, intrabdominal abscess Afib Leukocytosis S/p IR drain placement Abd pain is improved overall CT scan 12/08/22 demonstrated enlarged abscess contained perforation. Drain placed on R side of abd on 12/09/[address] Butcher. Has drained 60 mL over 16 hrs from abscess. Continue to monitor Continue metronidazole and cipro. WBC is 17.8 today increased from 13.6 yesterday. Monitor. Ambulate. Heparin IV drip restarted this morning. Clears. Tolerating well. Supervisory-Addendum Brief Verification & Attestation Participated in pt care: history, MDM, physical Personally performed: exam, history, MDM, supervision of care Care discussed with: Medical Student Procedures: n/a Results interpretation: Verified all documentation Verification and Attestation of Medical Student E/M Service A medical student performed and documented this service in my presence. I reviewed and verified all information documented by the medical student and made modifications to such information, when appropriate. I personally performed the physical exam and medical decision making. Rocio Smith, Dec 10, 2022,20:19 HAMZAH MCCARTHY Dec 10, 2022 07:10 ROCIO SMITH DO Dec 10, 2022 20:19
[2022-12-10 07:53] LABS: CALCIUM 7.8 MG/DL (8.5-10.1); CREATININE SERUM 0.94 MG/DL (0.60-1.30); POTASSIUM 3.2 MMOL/L (3.6-5.0)
[2022-12-10 08:09] LABS: BASOPHILS # (AUTO) 0.1 10^3/uL (0.0-0.1); BASOPHILS % (AUTO) 0 % (0-10); EOSINOPHILS % (AUTO) 0 % (0-10); HEMATOCRIT 34 % (40-54); HEMOGLOBIN 11.6 g/dL (13.3-17.7); LYMPHOCYTES # (AUTO) 1.2 10^3/uL (1.0-4.0); LYMPHOCYTES % (AUTO) 7 % (12-44); MEAN CORPUSCULAR HEMOGLOBIN 33 pg (25-34); MEAN CORPUSCULAR HGB CONC 34 g/dL (32-36); MEAN CORPUSCULAR VOLUME 95 fL (80-99); MEAN PLATELET VOLUME 9.3 fL (9.0-12.2); MONOCYTES % (AUTO) 6 % (0-12); NEUTROPHILS # (AUTO) 15.3 10^3/uL (1.8-7.8); NEUTROPHILS % (AUTO) 86 % (42-75); PLATELET COUNT 431 10^3/uL (130-400); WHITE BLOOD COUNT 17.8 10^3/uL (4.3-11.0)
[2022-12-10] MEDS: DRONEDARONE 400 MG TABLET PO SCH ×2 (10:11→20:27)
[2022-12-10] MEDS: PANTOPRAZOLE 40 MG TABLET PO SCH ×2 (10:11→20:27)
[2022-12-10] MEDS: COLCHICINE 0.6 MG TABLET PO SCH (10:11)
[2022-12-10] MEDS: HEParin 1000 UNIT/ML (10ML VIAL) FOR BOLUS IV SCH (10:21)
[2022-12-10] MEDS: HEParin DRIP 25000 UNIT/500ML 500 ML IV SCH (10:22)
--- NOTE | 2022-12-10 16:43 | Progress Note - Hospitalist ---
Subjective HPI/CC On Admission Date Seen by Provider: Dec 10, 2022 Time Seen by Provider: 09:45 Patient is 72-year-old male past medical history of diverticulosis, hypertension, hyperlipidemia, atrial fibrillation, coronary artery disease who presented to the emergency department due to abdominal pain. He reports his sym ptoms started 4 to 5 days ago and describes it as lower abdominal pain. He noticed his urine to be darker and so thought he was dehydrated and tried to drink more fluids. Despite this his abdominal pain worsened and spread across his entire abdomen. He presented to the emergency department and a CT revealed a perforated sigmoid diverticulum with diverticulitis. He was admitted to the surgical service for conservative management. I am consulted for medical management. He reports that his abdominal pain is improved and is only bothering him when he passes gas. His biggest complaint is that he is having back pain. Subjective/Events-last exam He is sitting in his chair. He is feeling about the same. He had some clear liquids last night and tolerated it well. Objective Exam Vital Signs Vital Signs Date Time Temp Pulse Resp B/P (MAP) Pulse Ox O2 Delivery O2 Flow Rate FiO2 12/10/22 15:13 37.1 66 18 146/72 (96) 92 Room Air 12/09/22 09:33 2.00 12/07/22 19:22 96 Capillary Refill : Less Than 3 Seconds General Appearance: No Apparent Distress, Obese Respiratory: Lungs Clear, No Respiratory Distress Cardiovascular: Regular Rate, Rhythm, No Murmur Gastrointestinal: Normal Bowel Sounds, Soft, Other (drain in place) Extremity: Normal Inspection, No Pedal Edema Neurologic/Psychiatric: Alert, Normal Mood/Affect Results/Procedures Lab Laboratory Tests 12/10/22 05:45 12/10/22 05:46 12/10/22 08:00 Patient resulted labs reviewed. Imaging: Reviewed Imaging Report Assessment/Plan Assessment and Plan Assess & Plan/Chief Complaint Perforated diverticulum and diverticulitis Management per primary NPO IV abx Fentanyl for pain Drain placed yesterday A-fib Cardiology following Heparin gtt Continue multaq HTN HLD CAD No acute needs dvt ppx: already receiving therapeutic anticoagulation Diagnosis/Problems Diagnosis/Problems (1) Perforation of sigmoid colon due to diverticulitis Status: Acute (2) Atrial fibrillation Status: Acute (3) Hypertension (4) Hyperlipidemia (5) CAD (coronary artery disease) RANDELL PATEL MD Dec 10, 2022 16:43
--- NOTE | 2022-12-10 16:49 | Cardiology Progress Note ---
Subjective Date Seen by Provider: Dec 10, 2022 Time Seen by Provider: 15:30 Subjective/Events-last exam No acute events. Patient states that white blood cell count still elevated. General surgery concerned about persistent white count. May take him for surgery if it does not improve by next week. Otherwise, heparin drip initiated this afternoon. Systolic blood pressures 150s to 160s Objective-Cardiology Exam Last Set of Vital Signs Vital Signs 12/07/22 12/09/22 12/10/22 19:22 09:33 15:13 Temp 37.1 Pulse 66 Resp 18 B/P (MAP) 146/72 (96) Pulse Ox 92 O2 Delivery Room Air O2 Flow Rate 2.00 FiO2 96 I&O Intake and Output 12/10/22 00:00 Intake Total 1920 ml Output Total 50 ml Balance 1870 ml Intake Oral 1420 ml IV Total 500 ml Drainage Total 50 ml # Voids 6 # Bowel Movements 2 General: Alert, Oriented X3 HEENT: Atraumatic, PERRLA Neck: Supple Lungs: Clear to Auscultation, Normal Air Movement Heart: Regular Rate, Normal S1, Normal S2 Abdomen: Normal Bowel Sounds, Soft Extremities: No Edema Skin: No Rashes, No Significant Lesion Neuro: Normal Speech Psych/Mental Status: Mental Status NL, Mood NL Other physical findings Gen: NAD, resting comfortably Neck: No bruits, no JVD Lungs: CTA B; no w-r-r CV: nl s1/s2; no murmurs gallops or rubs, regular rate and rhythm Abd: + BS, soft NT,ND; no hepatosplenomegaly Ext: 2+ radial and DP pulses; no c-c-e, wwp Results Lab Laboratory Tests 12/10/22 05:45 12/10/22 05:46 12/10/22 08:00 A/P-Cardiology Admission Diagnosis Perforated sigmoid diverticulitis PAF HTN HLP Assessment/Plan ##Perforated sigmoid diverticulitis- concerned about persitently elevated WBC - may consider surgical management if WBCs still elevated eraly next week. ## Coronary artery disease, underwent LHC on Dec 10, 2020 with severe stenosis in the distal LAD with successful primary stenting using 2.5 x 23 Rochelle stent expanded to 2.7 mm. Severe stenosis at the first diagonal artery, fairly small and tortuous artery, balloon angioplasty was done to the proximal artery, there is significant recoiling, the artery is 2 mm in diameter at max, cannot support a stent. Otherwise mild disease in the circumflex artery and right coronary artery. - cont crestor. - will start lisinopril 10 qD for BP - would like to initiate ASA 81; if ok with gen surgery ## Paroxysmal atrial fibrillation, underwent ROMANA with electrical cardioversion, currently in sinus rhythm, maintained on Multaq 400 mg twice daily as outpatient. Started on Toprol XL 25mg daily, medication was discontinued d/t bradycardia and fatigue.[id number] score of 2, yearly risk of stroke without oral anticoagulation is 2.2%, maintained on Xarelto, currently on hold - now on heparin gtt - cont dronaderone ## Hypertension, SBP 150-160s, wld target SBP < 130. - start lisinpriol 10 qd. ## Hyperlipidemia - cont statin CHAU BERNARD MD Dec 10, 2022 4:49 pm
[2022-12-10] MEDS: ROSUVASTATIN 10 MG TABLET PO SCH (20:27)
[2022-12-10] MEDS: SERTRALINE 50 MG TABLET PO SCH (20:28)
[2022-12-10] MEDS: CATHETER FLUSH 10 ML SYR IVP SCH (22:09)
[2022-12-11] MEDS: CIPROFLOXACIN IV 400MG/200ML 200 ML IV SCH ×2 (01:00→12:02)
[2022-12-11 04:05] VITALS: BP 158/75
[2022-12-11] MEDS: 1/2 NS IV SOLUTION 1000 ML 1,000 ML IV SCH ×2 (04:08→08:52)
[2022-12-11] MEDS: SUCRALFATE 1 GM TABLET PO SCH ×2 (05:36→14:36)
[2022-12-11] MEDS: CATHETER FLUSH 10 ML SYR IVP SCH ×3 (05:36→22:00)
[2022-12-11] MEDS: metroNIDAZOLE 500 MG/100 ML IVPB (PRE-MIX) IV SCH ×3 (05:36→21:31)
[2022-12-11] MEDS: HYDROcodone/ACETAMINOPHEN 5 MG/325 MG TABLET PO PRN ×4 (05:45→21:32)
[2022-12-11 05:50] LABS: HEMATOCRIT 35 % (40-54); HEMOGLOBIN 11.9 g/dL (13.3-17.7); MEAN CORPUSCULAR HEMOGLOBIN 33 pg (25-34); MEAN CORPUSCULAR HGB CONC 34 g/dL (32-36); MEAN CORPUSCULAR VOLUME 95 fL (80-99); MEAN PLATELET VOLUME 9.5 fL (9.0-12.2); PLATELET COUNT 432 10^3/uL (130-400); WHITE BLOOD COUNT 13.7 10^3/uL (4.3-11.0)
[2022-12-11 06:14] LABS: CALCIUM 7.9 MG/DL (8.5-10.1); CREATININE SERUM 0.9 MG/DL (0.60-1.30); POTASSIUM 2.9 MMOL/L (3.6-5.0)
[2022-12-11] MEDS: HEParin DRIP 25000 UNIT/500ML 500 ML IV SCH (06:38)
--- NOTE | 2022-12-11 07:01 | Progress Note - Surgery ---
HAMZAH MCCARTHY 12/11/22 0701: Subjective Date Seen by a Provider: Dec 11, 2022 Time Seen by a Provider: 06:54 Subjective/Events-last exam Pt continues to do well. Notes some abd pain associated with drain but says this is very mild. States that he only has RLQ pain with palpation to the area. R eports only occasional use of hydrocodone- took one dose yesterday. Notes continued back pain. Reports 3 loose, watery BMs overnight without any associated pain. Tolerating clears well. Denies any vomiting or nausea. Reports that for the first time since being here he has started to feel a bit hungry. Denies CP or SOB. Is only occasionally using IS but does ambulate several times during the day. Drained 50 mLs over 16 hrs from accordion drain. Remains a green/yellow color without any signs of blood. Review of Systems General: No Chills, No Night Sweats HEENT: No Head Aches, No Visual Changes Pulmonary: No Dyspnea, No Cough Cardiovascular: No: Chest Pain, Palpitations Gastrointestinal: Abdominal Pain (RLQ tender to palpation ), Diarrhea; No: Nausea, Vomiting Genitourinary: No Dysuria, No Frequency Musculoskeletal: back pain; No: neck pain Neurological: No: Change in speech, Confusion Focused Exam Sepsis Stage: Ruled Out Respiratory: No Accessory Muscle Use, No Respiratory Distress Cardiovascular: Regular Rate, Rhythm, Normal Peripheral Pulses Peripheral Pulses: 2+ Radial Pulses (R), 2+ Radial Pulses (L) Skin: normal color, warm/dry Objective Exam Vital Signs Date Time Temp Pulse Resp B/P (MAP) Pulse Ox O2 Delivery O2 Flow Rate FiO2 12/11/22 06:06 Room Air 0.00 12/11/22 04:05 37.0 56 18 158/75 (102) 93 Room Air 12/11/22 01:00 57 12/10/22 23:05 37.3 64 18 163/78 (106) 92 Room Air 12/10/22 21:47 67 12/10/22 20:30 Room Air 12/10/22 19:10 37.3 61 18 157/74 (101) 91 Room Air 12/10/22 15:13 37.1 66 18 146/72 (96) 92 Room Air 12/10/22 11:47 37.1 61 20 153/73 (99) 95 Room Air 12/10/22 08:00 Room Air 12/10/22 07:49 36.8 56 18 153/76 (101) 92 Room Air I & O 12/11/22 06:59 Intake Total 2202 ml Output Total 110 ml Balance 2092 ml Capillary Refill : Less Than 3 Seconds General Appearance: No Apparent Distress, WD/WN HEENT: PERRL/EOMI, Normal ENT Inspection Neck: Normal Inspection, Non Tender Respiratory: Chest Non Tender, No Accessory Muscle Use, No Respiratory Distress Cardiovascular: Regular Rate, Rhythm, No Murmur Peripheral Pulses: 2+ Radial Pulses (R), 2+ Radial Pulses (L) Gastrointestinal: soft, distended (minimal), tenderness (rlq tenderness to deep palpation, drain rlq) Extremity: Normal Capillary Refill, Pedal Edema (trace) Neurologic/Psychiatric: Alert, Oriented x3 Skin: Normal Color, Warm/Dry Lymphatic: No Adenopathy Results Lab Laboratory Tests 12/10/22 08:00: White Blood Count 17.8H, Red Blood Count 3.56L, Hemoglobin 11.6L, Hematocrit 34L , Mean Corpuscular Volume 95, Mean Corpuscular Hemoglobin 33, Mean Corpuscular Hemoglobin Concent 34, Red Cell Distribution Width 13.4, Platelet Count 431H, Mean Platelet Volume 9.3, Immature Granulocyte % (Auto) 1, Neutrophils (%) (Auto) 86H, Lymphocytes (%) (Auto) 7L, Monocytes (%) (Auto) 6, Eosinophils (%) (Auto) 0, Basophils (%) (Auto) 0, Neutrophils # (Auto) 15.3H, Lymphocytes # (Auto) 1.2, Monocytes # (Auto) 1.0, Eosinophils # (Auto) 0.0, Basophils # (Auto) 0.1, Immature Granulocyte # (Auto) 0.2H, Activated Partial Thromboplast Time 47H 12/10/22 14:33: Activated Partial Thromboplast Time 111H 12/10/22 21:12: Activated Partial Thromboplast Time 69H 12/11/22 05:35: White Blood Count 13.7H, Red Blood Count 3.66L, Hemoglobin 11.9L, Hematocrit 35L , Mean Corpuscular Volume 95, Mean Corpuscular Hemoglobin 33, Mean Corpuscular Hemoglobin Concent 34, Red Cell Distribution Width 13.3, Platelet Count 432H, Mean Platelet Volume 9.5, Activated Partial Thromboplast Time 80H, Sodium Level 141, Potassium Level 2.9L, Chloride Level 100, Carbon Dioxide Level 29, Anion Gap 12, Blood Urea Nitrogen 6L, Creatinine 0.90, Estimat Glomerular Filtration Rate 92, BUN/Creatinine Ratio 7, Glucose Level 113H, Calcium Level 7.9L Microbiology 12/09/22 Gram Stain - Final, Resulted 12/09/22 Surgical Culture - Preliminary, Resulted Strep, Beta Hemolytic Group F Mixed Bacterial Cassia Culture In Progress Assessment/Plan Assessment/Plan Assessment/Plan Abdominal pain diffuse Complicated diverticulitis with sealed perforation, intrabdominal abscess Afib Leukocytosis S/p IR drain placement Abd pain is improved overall CT scan 12/08/22 demonstrated enlarged abscess contained perforation. Drain placed on R side of abd on 12/09/[address] Butcher. Has drained 50 mL over 16 hrs from abscess. Continue to monitor Continue metronidazole and cipro. WBC is 13.7 today down from 17.8 yesterday. Monitor. Ambulate. On Heparin IV drip Clears. Tolerating well. Consider advancing diet if his white count continues to decrease and sxs continue to improve ROCIO SMITH DO 12/11/22 0751: Subjective Subjective/Events-last exam Patient feeling okay. Having bowel function. Tolerating clears. Drain functioning. WBC 13.7 down from yesterday. Getting hungry. Denies n/v fever sweats chills shortness of breath or chest pain. Objective Exam General Appearance: No Apparent Distress HEENT: PERRL/EOMI, Normal ENT Inspection Neck: Normal Inspection, Non Tender Respiratory: Chest Non Tender, No Accessory Muscle Use, No Respiratory Distress Cardiovascular: Regular Rate, Rhythm, No JVD Gastrointestinal: distended (minimal), tenderness (rlq tenderness to deep palpation minimal, drain rlq) Extremity: Non Tender, Pedal Edema (trace) Neurologic/Psychiatric: Alert, Oriented x3 Skin: Normal Color, Warm/Dry Lymphatic: No Adenopathy Assessment/Plan Assessment/Plan Assessment/Plan Abdominal pain diffuse Complicated diverticulitis with sealed perforation, intrabdominal abscess Afib Leukocytosis S/p IR drain placement Abd pain is improved overall CT scan 12/08/22 demonstrated enlarged abscess contained perforation. Drain placed on R side of abd on 12/09/[address] Butcher. Continue metronidazole and cipro. WBC is 13.7 today down from 17.8 yesterday. Monitor. Ambulate. On Heparin IV drip Clears -Tolerating Supervisory-Addendum Brief Verification & Attestation Participated in pt care: history, MDM, physical Personally performed: exam, history, MDM, supervision of care Care discussed with: Medical Student Procedures: n/a Results interpretation: Verified all documentation Verification and Attestation of Medical Student E/M Service A medical student performed and documented this service in my presence. I reviewed and verified all information documented by the medical student and made modifications to such information, when appropriate. I personally performed the physical exam and medical decision making. Rocio mSith, Dec 11, 2022,07:51 HAMZAH MCCARTHY Dec 11, 2022 07:01 ROCIO SMITH DO Dec 11, 2022 07:51
[2022-12-11 07:51] VITALS: BP 163/82
[2022-12-11] MEDS: PANTOPRAZOLE 40 MG TABLET PO SCH ×2 (08:53→21:28)
[2022-12-11] MEDS: COLCHICINE 0.6 MG TABLET PO SCH (08:53)
[2022-12-11] MEDS: DRONEDARONE 400 MG TABLET PO SCH ×2 (08:53→21:27)
[2022-12-11 11:40] VITALS: BP 153/82
--- NOTE | 2022-12-11 11:48 | Cardiology Progress Note ---
Subjective Date Seen by Provider: Dec 11, 2022 Time Seen by Provider: 10:45 Subjective/Events-last exam No acute events overnight. Patient doing reasonably well. Systolic blood pressures mildly improved 140s to 160s relative to 150s to 170s yesterday. Initiated lisinopril 10 daily Objective-Cardiology Exam Last Set of Vital Signs Vital Signs 12/07/22 12/11/22 12/11/22 19:22 06:06 11:40 Temp 36.5 Pulse 57 Resp 18 B/P (MAP) 153/82 (105) Pulse Ox 96 O2 Delivery Room Air O2 Flow Rate 0.00 FiO2 96 I&O Intake and Output 12/11/22 00:00 Intake Total 2102 ml Output Total 90 ml Balance 2011 ml Intake Oral 1702 ml IV Total 400 ml Drainage Total 90 ml # Voids 9 # Bowel Movements 3 General: Alert, Oriented X3 HEENT: Atraumatic, PERRLA Neck: Supple Lungs: Clear to Auscultation, Normal Air Movement Heart: Regular Rate, Normal S1, Normal S2 Abdomen: Normal Bowel Sounds, Soft Extremities: No Edema Skin: No Rashes, No Significant Lesion Neuro: Normal Speech Psych/Mental Status: Mental Status NL, Mood NL Other physical findings Neck: No bruits, no JVD Lungs: CTA B; no w-r-r CV: nl s1/s2; no murmurs gallops or rubs, regular rate and rhythm Abd: + BS, soft NT,ND; no hepatosplenomegaly Ext: 2+ radial and DP pulses; no c-c-e, wwp Results Lab Laboratory Tests 12/11/22 05:35 A/P-Cardiology Admission Diagnosis Perforated sigmoid diverticulitis PAF HTN HLP Assessment/Plan ##Perforated sigmoid diverticulitis- concerned about persitently elevated WBC - WBC down to 13.7 today; cont to monitor ## Coronary artery disease, underwent C on Dec 10, 2020 with severe stenosis in the distal LAD with successful primary stenting using 2.5 x 23 Rochelle stent expanded to 2.7 mm. Severe stenosis at the first diagonal artery, fairly small and tortuous artery, balloon angioplasty was done to the proximal artery, there is significant recoiling, the artery is 2 mm in diameter at max, cannot support a stent. Otherwise mild disease in the circumflex artery and right coronary artery. - cont crestor. - increase lisninpril to 20 qd and start hctz 25 qd. - would like to initiate ASA 81; if ok with gen surgery ## Paroxysmal atrial fibrillation, underwent ROMANA with electrical cardioversion, currently in sinus rhythm, maintained on Multaq 400 mg twice daily as outpatient. Started on Toprol XL 25mg daily, medication was discontinued d/t bradycardia and fatigue.[id number] score of 2, yearly risk of stroke without oral anticoagulation is 2.2%, maintained on Xarelto, currently on hold - now on heparin gtt -keep k > 4, Mg > 2; K is 2.9 today; will supplement. - cont dronaderone ## Hypertension, SBP 150-160s, wld target SBP < 130. - increase lisinopril 20 qd and start hctz ## Hyperlipidemia - cont statin CHAU BERNARD MD Dec 11, 2022 11:48 am
[2022-12-11] MEDS ORDERED: POTASSIUM CHLORIDE 20 MEQ TABLET PO ONE ×2 (12:15→14:15)
[2022-12-11 15:53] VITALS: BP 145/77
[2022-12-11 19:11] VITALS: BP 144/74
[2022-12-11] MEDS: ROSUVASTATIN 10 MG TABLET PO SCH (21:29)
[2022-12-11] MEDS: SERTRALINE 50 MG TABLET PO SCH (21:31)
[2022-12-11 23:32] VITALS: BP 162/85
[2022-12-12] MEDS: CIPROFLOXACIN IV 400MG/200ML 200 ML IV SCH ×2 (00:52→12:27)
[2022-12-12] MEDS: 1/2 NS IV SOLUTION 1000 ML 1,000 ML IV SCH (00:53)
[2022-12-12] MEDS: HYDROcodone/ACETAMINOPHEN 5 MG/325 MG TABLET PO PRN ×4 (01:02→19:37)
[2022-12-12 03:04] VITALS: BP 155/76
[2022-12-12] MEDS: HEParin DRIP 25000 UNIT/500ML 500 ML IV SCH (03:07)
[2022-12-12] MEDS: CATHETER FLUSH 10 ML SYR IVP SCH ×3 (06:02→21:59)
[2022-12-12] MEDS: SUCRALFATE 1 GM TABLET PO SCH ×2 (06:02→15:08)
[2022-12-12] MEDS: metroNIDAZOLE 500 MG/100 ML IVPB (PRE-MIX) IV SCH ×3 (06:02→21:58)
[2022-12-12 06:05] LABS: HEMATOCRIT 35 % (40-54); HEMOGLOBIN 11.6 g/dL (13.3-17.7); MEAN CORPUSCULAR HEMOGLOBIN 32 pg (25-34); MEAN CORPUSCULAR HGB CONC 34 g/dL (32-36); MEAN CORPUSCULAR VOLUME 96 fL (80-99); MEAN PLATELET VOLUME 10.1 fL (9.0-12.2); PLATELET COUNT 500 10^3/uL (130-400); WHITE BLOOD COUNT 11.4 10^3/uL (4.3-11.0)
[2022-12-12 06:24] LABS: CALCIUM 8.1 MG/DL (8.5-10.1); CREATININE SERUM 0.89 MG/DL (0.60-1.30); POTASSIUM 3.2 MMOL/L (3.6-5.0)
[2022-12-12] MEDS: HEParin 1000 UNIT/ML (10ML VIAL) FOR BOLUS IV SCH (06:44)
[2022-12-12 07:29] VITALS: BP 160/79
[2022-12-12] MEDS: PANTOPRAZOLE 40 MG TABLET PO SCH ×2 (08:27→19:36)
[2022-12-12] MEDS: COLCHICINE 0.6 MG TABLET PO SCH (08:27)
[2022-12-12] MEDS: DRONEDARONE 400 MG TABLET PO SCH ×2 (08:27→19:36)
--- NOTE | 2022-12-12 10:57 | Progress Note - Surgery ---
LIZBETH MALONE 12/12/22 1057: Subjective Date Seen by a Provider: Dec 12, 2022 Time Seen by a Provider: 10:52 Subjective/Events-last exam Pt says he is feeling "pretty good". Pt denies N/V. Pt is still on clears diet. Pt says he had a BM at 1:00 o'clock this morning. Pt states he has no pain right now. Pt says he has not had any episodes of a-fib in the past 24 hours that he has noticed. Pt's percutaneous drain has 10 ml in the bag of greenish liquid. Review of Systems General: No Chills, No Night Sweats HEENT: No Head Aches, No Visual Changes Pulmonary: No Dyspnea, No Cough Cardiovascular: No: Chest Pain, Palpitations Gastrointestinal: Diarrhea (pt says due to clears diet); No: Nausea, Vomiting, Abdominal Pain, Melena, Hematochezia Genitourinary: No Dysuria, No Hematuria Neurological: No: Weakness, Numbness Objective Exam Vital Signs Date Time Temp Pulse Resp B/P (MAP) Pulse Ox O2 Delivery O2 Flow Rate FiO2 12/12/22 08:00 Room Air 12/12/22 07:29 36.5 55 16 160/79 (106) 93 Room Air 12/12/22 07:00 56 12/12/22 03:04 36.4 54 18 155/76 (102) 94 Room Air 12/12/22 00:47 59 12/11/22 23:32 36.2 57 18 162/85 (110) 95 Room Air 12/11/22 21:00 95 Room Air 0.00 12/11/22 19:11 36.6 57 16 144/74 (97) 94 Room Air 12/11/22 19:00 59 12/11/22 15:53 37.1 56 20 145/77 (99) 95 Room Air 12/11/22 12:49 59 12/11/22 11:40 36.5 57 18 153/82 (105) 96 Room Air I & O 12/12/22 07:00 Intake Total 2305 ml Output Total 70 ml Balance 2235 ml Capillary Refill : Less Than 3 Seconds General Appearance: No Apparent Distress Neck: Non Tender Respiratory: Lungs Clear, No Accessory Muscle Use, No Respiratory Distress, Decreased Breath Sounds (lung bases) Cardiovascular: No JVD, No Murmur, Bradycardia (HR 55) Peripheral Pulses: 2+ Carotid (R), 2+ Carotid (L), 2+ Dorsalis Pedis (R), 2+ Left Dors-Pedis (L), 2+ Radial Pulses (R), 2+ Radial Pulses (L) Gastrointestinal: distended (minimal), tenderness (rlq tenderness to deep palpation minimal, drain rlq) Extremity: Pedal Edema (trace), Swelling (feet b/l) Neurologic/Psychiatric: Alert, Oriented x3 Skin: Normal Color, Warm/Dry Results Lab Laboratory Tests 12/12/22 05:00: Activated Partial Thromboplast Time 61H, Sodium Level 139, Potassium Level 3.2L, Chloride Level 100, Carbon Dioxide Level 29, Anion Gap 10, Blood Urea Nitrogen 5L, Creatinine 0.89, Estimat Glomerular Filtration Rate 92, BUN/Creatinine Ratio 6, Glucose Level 101, Calcium Level 8.1L 12/12/22 05:30: White Blood Count 11.4H, Red Blood Count 3.61L, Hemoglobin 11.6L, Hematocrit 35L , Mean Corpuscular Volume 96, Mean Corpuscular Hemoglobin 32, Mean Corpuscular Hemoglobin Concent 34, Red Cell Distribution Width 13.4, Platelet Count 500H, Mean Platelet Volume 10.1 Microbiology 12/09/22 Gram Stain - Final, Resulted 12/09/22 Surgical Culture - Preliminary, Resulted Strep constellatus See Comments Assessment/Plan Assessment/Plan Assessment/Plan Complicated diverticulitis with sealed perforation, intrabdominal abscess Afib - no incidence in last 24 hr Leukocytosis S/P IR drain placement Pt does not complain of any abdominal pain now. 12/08 CT showed enlarged abscess containing a perforation, has been draining from RLQ w/ 10ml of greenish liquid currently in the bag. WBC is 11.4, down from 13.7. Continue ambulating, continue heparin IV drip, continue metronidazole and cipro. Progress to soft diet. BRAYDEN WISDOM DO 12/12/22 1511: Subjective Time Seen by a Provider: 13:01 Subjective/Events-last exam Pt seen and examined, states he has no pain and is feeling better. He had BM and is passing gas. Review of Systems General: No Chills, No Night Sweats Pulmonary: No Dyspnea, No Cough Cardiovascular: No: Chest Pain, Palpitations Gastrointestinal: Diarrhea (pt says due to clears diet); No: Nausea, Vomiting, Abdominal Pain Objective Exam General Appearance: No Apparent Distress, Obese Respiratory: Lungs Clear, No Accessory Muscle Use, Decreased Breath Sounds (lung bases) Cardiovascular: No Murmur, Bradycardia (HR 55) Gastrointestinal: soft, distended (minimal), tenderness (rlq tenderness to deep palpation minimal, drain rlq), other (drain with scant green drainage) Extremity: Pedal Edema (trace), Swelling (feet b/l) Neurologic/Psychiatric: Alert, Oriented x3 Skin: Normal Color, Warm/Dry Assessment/Plan Assessment/Plan Assessment/Plan Complicated diverticulitis with sealed perforation, intrabdominal abscess Afib - no incidence in last 24 hr Leukocytosis S/P IR drain placement Pt does not complain of any abdominal pain now. 12/08 CT showed enlarged abscess containing a perforation, has been draining from RLQ w/ 10ml of greenish liquid currently in the bag. WBC is 11.4, down from 13.7. Continue ambulating, continue heparin IV drip, continue metronidazole and cipro. May need repeat of CT, I did talk to pt about the fact that green drainage can mean a hole in small bowel. Will need to watch closely. Supervisory-Addendum Brief Verification & Attestation Participated in pt care: history, MDM, physical Personally performed: exam, history, MDM, supervision of care Care discussed with: Medical Student Procedures: n/a Verification and Attestation of Medical Student E/M Service A medical student performed and documented this service. I then reviewed and verified all information documented by the medical student and made modifications to such information, when appropriate. I personally performed a physical exam, medical decision making and then discussed any differences between the notes and made revisions as necessary to create one note. Brayden Wisdom , 12/12/22 , 15:11 LIZBETH MALONE Dec 12, 2022 10:57 BRAYDEN WISDOM DO Dec 12, 2022 15:11
[2022-12-12 11:11] VITALS: BP 151/76
--- NOTE | 2022-12-12 12:11 | Cardiology Progress Note ---
Subjective Date Seen by Provider: Dec 12, 2022 Time Seen by Provider: 12:00 Subjective/Events-last exam No acute events overnight. WBC continues to improve, now down to 11 today. Blood pressure still elevated, systolics ranging from 140s to 160s Objective-Cardiology Exam Last Set of Vital Signs Vital Signs 12/07/22 12/11/22 12/12/22 19:22 21:00 11:11 Temp 36.4 Pulse 53 Resp 18 B/P (MAP) 151/76 (101) Pulse Ox 93 O2 Delivery Room Air O2 Flow Rate 0.00 FiO2 96 I&O Intake and Output 12/12/22 00:00 Intake Total 3105 ml Output Total 100 ml Balance 3005 ml Intake Oral 2305 ml IV Total 800 ml Drainage Total 100 ml # Voids 16 # Bowel Movements 5 General: Alert, Oriented X3 HEENT: Atraumatic, PERRLA Neck: Supple Lungs: Clear to Auscultation, Normal Air Movement Heart: Regular Rate, Normal S1, Normal S2 Abdomen: Normal Bowel Sounds, Soft Extremities: No Edema Skin: No Rashes, No Significant Lesion Neuro: Normal Speech Psych/Mental Status: Mental Status NL, Mood NL Other physical findings HEENT: PERRL/EOMI, Normal ENT Inspection Neck: Normal Inspection, Non Tender Respiratory: Chest Non Tender, No Accessory Muscle Use, No Respiratory Distress Cardiovascular: Regular Rate, Rhythm, No Murmur Peripheral Pulses: 2+ Radial Pulses (R), 2+ Radial Pulses (L) Gastrointestinal: soft, distended (minimal), tenderness (rlq tenderness to deep palpation, drain rlq) Extremity: Normal Capillary Refill, Pedal Edema (trace) Neurologic/Psychiatric: Alert, Oriented x3 Skin: Normal Color, Warm/Dry Lymphatic: No Adenopathy Results Lab Laboratory Tests 12/12/22 05:00 12/12/22 05:30 A/P-Cardiology Admission Diagnosis Perforated sigmoid diverticulitis PAF HTN HLP Assessment/Plan ##Perforated sigmoid diverticulitis- concerned about persitently elevated WBC - WBC down to 13.7 today; cont to monitor ## Coronary artery disease, underwent LHC on Dec 10, 2020 with severe stenosis in the distal LAD with successful primary stenting using 2.5 x 23 Rochelle stent expanded to 2.7 mm. Severe stenosis at the first diagonal artery, fairly small and tortuous artery, balloon angioplasty was done to the proximal artery, there is significant recoiling, the artery is 2 mm in diameter at max, cannot support a stent. Otherwise mild disease in the circumflex artery and right coronary artery. - cont crestor. - increase lisninpril to 40 qd, cont hctz 25 qd. \ - start nifedipine 30 qd - would like to initiate ASA 81; if/when ok with gen surgery ## Paroxysmal atrial fibrillation, underwent ROMANA with electrical cardioversion, currently in sinus rhythm, maintained on Multaq 400 mg twice daily as outpatient . Started on Toprol XL 25mg daily, medication was discontinued d/t bradycardia and fatigue.[id number] score of 2, yearly risk of stroke without oral anticoagulation is 2.2%, maintained on Xarelto, currently on hold - now on heparin gtt -keep k > 4, Mg > 2; K is 2.9 today; will supplement. - cont dronaderone ## Hypertension, SBP 150-160s, wld target SBP < 130. -changes as noted above. ## Hyperlipidemia - cont statin CHAU BERNARD MD Dec 12, 2022 12:11
[2022-12-12] MEDS: NIFEdipine Extended Release 30 MG TABLET PO SCH (12:28)
[2022-12-12] MEDS: 1/2 NS + KCL 20 MEQ/L 1,000 ML 1,000 ML IV SCH (14:14)
[2022-12-12 15:23] VITALS: BP 132/68
[2022-12-12 19:08] VITALS: BP 142/67
[2022-12-12] MEDS: ROSUVASTATIN 10 MG TABLET PO SCH (19:36)
[2022-12-12] MEDS: SERTRALINE 50 MG TABLET PO SCH (19:36)
[2022-12-13] VITALS (7 sets, daily range): BP systolic 128–141; BP diastolic 66–79
[2022-12-13] MEDS: HEParin DRIP 25000 UNIT/500ML 500 ML IV SCH (00:01)
[2022-12-13] MEDS: CIPROFLOXACIN IV 400MG/200ML 200 ML IV SCH (00:03)
[2022-12-13] MEDS: HYDROcodone/ACETAMINOPHEN 5 MG/325 MG TABLET PO PRN ×5 (00:45→18:51)
[2022-12-13] MEDS: 1/2 NS + KCL 20 MEQ/L 1,000 ML 1,000 ML IV SCH ×3 (04:40→20:12)
[2022-12-13] MEDS: SUCRALFATE 1 GM TABLET PO SCH ×2 (05:18→16:24)
[2022-12-13] MEDS: CATHETER FLUSH 10 ML SYR IVP SCH ×3 (05:19→20:13)
[2022-12-13] MEDS: metroNIDAZOLE 500 MG/100 ML IVPB (PRE-MIX) IV SCH (05:19)
[2022-12-13 05:21] LABS: HEMATOCRIT 37 % (40-54); HEMOGLOBIN 12.6 g/dL (13.3-17.7); MEAN CORPUSCULAR HEMOGLOBIN 32 pg (25-34); MEAN CORPUSCULAR HGB CONC 34 g/dL (32-36); MEAN CORPUSCULAR VOLUME 94 fL (80-99); MEAN PLATELET VOLUME 9.6 fL (9.0-12.2); PLATELET COUNT 497 10^3/uL (130-400); WHITE BLOOD COUNT 10.4 10^3/uL (4.3-11.0)
[2022-12-13 05:28] LABS: INR 1.4 (0.8-1.4); PROTHROMBIN TIME PATIENT 16.9 SEC (12.2-14.7)
--- NOTE | 2022-12-13 06:43 | Progress Note - Surgery ---
HAMZAH MCCARTHY 12/13/22 0643: Subjective Date Seen by a Provider: Dec 13, 2022 Time Seen by a Provider: 06:37 Subjective/Events-last exam Pt continues to have mild tenderness to palpation in the RLQ, but otherwise is doing well. Notes discomfort associated with the drain and has continued back pain. Reports that his appetite has come back and he is now very hungry- currently still on clears. Reports 1 BM overnight. Denies any nausea, vomiting, fever sxs, chest pain, palpitations, or SOB. RLQ IR drain with 70 mL total of green fluid. x4 10 mL flushes of saline. Actual drain output = 30 mL Review of Systems General: No Chills, No Night Sweats HEENT: No Head Aches, No Visual Changes Pulmonary: No Dyspnea, No Cough Cardiovascular: No: Chest Pain, Palpitations Gastrointestinal: Abdominal Pain (mild RLQ); No: Nausea, Vomiting Genitourinary: No Dysuria, No Frequency Musculoskeletal: back pain; No: shoulder pain Neurological: No: Change in speech, Confusion Focused Exam Sepsis Stage: Ruled Out Respiratory: No Accessory Muscle Use, No Respiratory Distress Cardiovascular: Regular Rate, Rhythm, Normal Peripheral Pulses Peripheral Pulses: 2+ Radial Pulses (R), 2+ Radial Pulses (L) Skin: normal color, warm/dry Objective Exam Vital Signs Date Time Temp Pulse Resp B/P (MAP) Pulse Ox O2 Delivery O2 Flow Rate FiO2 12/13/22 03:01 36.4 61 18 132/67 (88) 95 Room Air 12/13/22 01:00 61 12/13/22 00:04 36.6 62 18 138/72 (94) 94 Room Air 12/12/22 19:40 Room Air 12/12/22 19:08 36.5 65 16 142/67 (92) 95 Room Air 12/12/22 19:01 78 12/12/22 15:23 36.0 57 16 132/68 (89) 94 Room Air 12/12/22 12:31 60 12/12/22 11:11 36.4 53 18 151/76 (101) 93 Room Air 12/12/22 08:00 Room Air 12/12/22 07:29 36.5 55 16 160/79 (106) 93 Room Air 12/12/22 07:00 56 I & O 12/13/22 07:00 Intake Total 3440 ml Output Total 50 ml Balance 3390 ml Capillary Refill : Less Than 3 Seconds General Appearance: No Apparent Distress, Obese HEENT: PERRL/EOMI, Normal ENT Inspection Neck: Non Tender Respiratory: Lungs Clear, No Accessory Muscle Use Cardiovascular: Regular Rate, Rhythm, Normal Peripheral Pulses Peripheral Pulses: 2+ Carotid (R), 2+ Carotid (L), 2+ Dorsalis Pedis (R), 2+ Left Dors-Pedis (L), 2+ Radial Pulses (R), 2+ Radial Pulses (L) Gastrointestinal: soft, distended (minimal), tenderness (rlq tenderness to deep palpation minimal, drain rlq), other (drain with scant green drainage) Extremity: Pedal Edema (trace) Neurologic/Psychiatric: Alert, Oriented x3 Skin: Normal Color, Warm/Dry Lymphatic: No Adenopathy Results Lab Laboratory Tests 12/12/22 13:05: Activated Partial Thromboplast Time 115*H 12/12/22 18:58: Activated Partial Thromboplast Time 93H 12/13/22 01:03: Activated Partial Thromboplast Time 86H 12/13/22 04:57: White Blood Count 10.4, Red Blood Count 3.93L, Hemoglobin 12.6L, Hematocrit 37L, Mean Corpuscular Volume 94, Mean Corpuscular Hemoglobin 32, Mean Corpuscular Hemoglobin Concent 34, Red Cell Distribution Width 13.3, Platelet Count 497H, Mean Platelet Volume 9.6, Prothrombin Time 16.9H, INR Comment 1.4 Microbiology 12/09/22 Gram Stain - Final, Resulted 12/09/22 Surgical Culture - Preliminary, Resulted Strep constellatus See Comments Assessment/Plan Assessment/Plan Assessment/Plan Complicated diverticulitis with sealed perforation, intrabdominal abscess Abd pain Afib Leukocytosis S/P IR drain placement Abd pain improved. 12/08 CT showed enlarged abscess containing a perforation. S/p IR drain- has been draining from RLQ (30 mL green fluid over 24 hrs) WBC is 10.4 today down from 11.4 Continue ambulating Continue heparin IV drip Continue metronidazole and cipro. Advance diet from clears to low residual SMITH,ROCIO D DO 12/13/22 1042: Subjective Subjective/Events-last exam Minimal tenderness right lower quadrant. Having bowel function. WBC down. Minimal drain output. Tolerating clears. Denies any other complaints. On Heparin drip. Objective Exam General Appearance: No Apparent Distress, Obese HEENT: PERRL/EOMI, Normal ENT Inspection Neck: Full Range of Motion, Non Tender Respiratory: Chest Non Tender, No Accessory Muscle Use, No Respiratory Distress Cardiovascular: Regular Rate, Rhythm, No JVD Gastrointestinal: soft, tenderness (rlq tenderness to deep palpation minimal, drain rlq), other (drain with scant green drainage) Extremity: Pedal Edema (trace) Neurologic/Psychiatric: Alert, Oriented x3 Skin: Normal Color, Warm/Dry Lymphatic: No Adenopathy Assessment/Plan Assessment/Plan Assessment/Plan Complicated diverticulitis with sealed perforation, intrabdominal abscess Abd pain Afib Leukocytosis S/P IR drain placement Abd pain improved. 12/08 CT showed enlarged abscess containing a perforation. S/p IR drain- has been draining from RLQ (30 mL green fluid over 24 hrs) WBC is 10.4 today down from 11.4 Continue ambulating Continue heparin IV drip metronidazole and cipro- convert to augmentin Advance diet from clears to low residual slowly improving, home soon Supervisory-Addendum Brief Verification & Attestation Participated in pt care: history, MDM, physical Personally performed: exam, history, MDM, supervision of care Care discussed with: Medical Student Procedures: n/a Results interpretation: Verified all documentation Verification and Attestation of Medical Student E/M Service A medical student performed and documented this service in my presence. I reviewed and verified all information documented by the medical student and made modifications to such information, when appropriate. I personally performed the physical exam and medical decision making. Rocio Smith, Dec 13, 2022,10:42 HAMZAH MCCARTHY Dec 13, 2022 06:43 ROCIO SMITH DO Dec 13, 2022 10:42
[2022-12-13] MEDS: DRONEDARONE 400 MG TABLET PO SCH ×2 (08:33→20:12)
[2022-12-13] MEDS: COLCHICINE 0.6 MG TABLET PO SCH (08:33)
[2022-12-13] MEDS: PANTOPRAZOLE 40 MG TABLET PO SCH ×2 (08:33→20:11)
[2022-12-13] MEDS: NIFEdipine Extended Release 30 MG TABLET PO SCH (08:34)
--- NOTE | 2022-12-13 09:19 | Cardiology Progress Note ---
Subjective Date Seen by Provider: Dec 13, 2022 Time Seen by Provider: 08:40 Subjective/Events-last exam Patient is sitting up in chair, no new complaints. Objective-Cardiology Exam Last Set of Vital Signs Vital Signs 12/07/22 12/13/22 12/13/22 19:22 08:00 11:28 Temp 36.4 Pulse 67 Resp 20 B/P (MAP) 128/66 (86) Pulse Ox 96 O2 Delivery Room Air O2 Flow Rate 0.00 FiO2 96 I&O Intake and Output 12/13/22 00:00 Intake Total 3000 ml Output Total 40 ml Balance 2960 ml Intake Oral 2400 ml IV Total 600 ml Drainage Total 40 ml # Voids 15 # Bowel Movements 6 General: Alert, Oriented X3 HEENT: Atraumatic, PERRLA Neck: Supple Lungs: Clear to Auscultation, Normal Air Movement Heart: Regular Rate, Normal S1, Normal S2 Abdomen: Normal Bowel Sounds, Soft Extremities: No Edema Skin: No Rashes, No Significant Lesion Neuro: Normal Speech Psych/Mental Status: Mental Status NL, Mood NL Results Lab Laboratory Tests 12/13/22 04:57 A/P-Cardiology Admission Diagnosis Perforated sigmoid diverticulitis PAF HTN HLP Assessment/Plan Perforated sigmoid diverticulitis, management per surgeon and medical services. Coronary artery disease, underwent LHC on Dec 10, 2020 with severe stenosis in the distal LAD with successful primary stenting using 2.5 x 23 Rochelle stent expanded to 2.7 mm. Severe stenosis at the first diagonal artery, fairly small and tortuous artery, balloon angioplasty was done to the proximal artery, there is significant recoiling, the artery is 2 mm in diameter at max, cannot support a stent. Otherwise mild disease in the circumflex artery and right coronary artery. Paroxysmal atrial fibrillation, underwent ROMANA with electrical cardioversion, currently in sinus rhythm, maintained on Multaq 400 mg twice daily as outpatient . Review of the Zio patch on May 24, 2022 showed multiple short paroxysmal atrial tachycardia, wide complex tachycardia, possible 5 beats nonsustained ventricular tachycardia vs afib with abberant conduction. Asymptomatic Started on Toprol XL 25mg daily, medication was discontinued d/t bradycardia and fatigue. Patient was referred to Dr. Bellamy, underwent ablation last month. Multaq restarted Restart OAC when deemed ok by surgeon [id number] score of 2, yearly risk of stroke without oral anticoagulation is 2.2%, maintained on Xarelto, currently on hold Chest pain, atypical, reporting improvement. Hypertension, controlled on current medication, monitor blood pressure Hyperlipidemia, maintained on statin Hypokalemia, replace and continue to monitor. Family history of atrial fibrillation and flutter, had brother who had ablation. Mild bilateral carotid stenosis, ultrasound was done in February 2022. Continue to monitor Supervisory-Addendum Brief Supervisory Addendum Participated in pt care: history, MDM, physical Personally performed: exam, history, MDM Care discussed with: APOLLO Results interpretation: Verified all documentation Notes: Patient was seen and evaluated with Laura, examination performed, management plan was discussed, agree with the current scribed note, I made few changes to the note using Italic font Patient was seen at bedside sitting comfortably, feeling better We will start Xarelto if okay with the surgeon LAURA VALLADARES Dec 13, 2022 09:19 ANMOL LIU MD Dec 13, 2022 12:54
[2022-12-13] MEDS ORDERED: RIVAROXABAN 20 MG TABLET PO SCH (17:00)
[2022-12-13] MEDS: AMOXICILLIN/Clavulanate 875 MG TABLET PO SCH (17:16)
[2022-12-13] MEDS: ROSUVASTATIN 10 MG TABLET PO SCH (20:12)
[2022-12-13] MEDS: SERTRALINE 50 MG TABLET PO SCH (20:12)
[2022-12-14 03:36] VITALS: BP 125/70
[2022-12-14] MEDS: CATHETER FLUSH 10 ML SYR IVP SCH (05:44)
[2022-12-14] MEDS: SUCRALFATE 1 GM TABLET PO SCH (05:44)
--- NOTE | 2022-12-14 07:22 | Progress Note - Surgery ---
HAMZHA MCCARTHY 12/14/22 0722: Subjective Date Seen by a Provider: Dec 14, 2022 Time Seen by a Provider: 07:16 Subjective/Events-last exam Pt is a 72 male who continues to have improving abd pain. Reports tenderness to palpation in the RLQ but otherwise denies abd pain. Is on a low residual diet and tolerating well. States that he has good appetite and is taking it slowly. Denies any nausea or vomiting. Reports 2 loose bowel movements over night and occasional gas. Denies any pain associated with bowel movements. Reports continued low back pain. 25 mL total collected from RLQ drain over 24 hrs, 3 10mL saline flushes. Fluid output is minimal and remains a dark green color. Denies SOB, chest pain, or palpitations. Review of Systems General: No Chills, No Night Sweats HEENT: No Head Aches, No Visual Changes Pulmonary: No Dyspnea, No Cough Cardiovascular: No: Chest Pain, Palpitations Gastrointestinal: Abdominal Pain, Diarrhea; No: Nausea, Vomiting Genitourinary: No Dysuria, No Frequency Musculoskeletal: back pain; No: neck pain Neurological: No: Change in speech, Confusion Focused Exam Sepsis Stage: Ruled Out Respiratory: Lungs Clear, Normal Breath Sounds, No Accessory Muscle Use, No Res piratory Distress Cardiovascular: Regular Rate, Rhythm, No Murmur, Normal Peripheral Pulses Peripheral Pulses: 2+ Radial Pulses (R), 2+ Radial Pulses (L) Skin: normal color, warm/dry Objective Exam Vital Signs Date Time Temp Pulse Resp B/P (MAP) Pulse Ox O2 Delivery O2 Flow Rate FiO2 12/14/22 03:36 36.8 71 20 125/70 (88) 94 Room Air 12/14/22 01:00 64 12/13/22 23:39 36.5 72 20 141/79 (99) 94 Room Air 0.00 0.00 12/13/22 20:10 Room Air 12/13/22 20:07 36.6 68 20 129/68 (88) 94 Room Air 12/13/22 19:00 68 12/13/22 15:53 36.5 64 18 131/69 (89) 95 Room Air 12/13/22 12:56 65 12/13/22 11:28 36.4 67 20 128/66 (86) 96 Room Air 12/13/22 08:00 95 Room Air 0.00 12/13/22 07:30 56 I & O 12/14/22 07:00 Intake Total 3730 ml Output Total 25 ml Balance 3705 ml Capillary Refill : Less Than 3 Seconds General Appearance: No Apparent Distress, Obese HEENT: PERRL/EOMI, Normal ENT Inspection Neck: Full Range of Motion, Non Tender Respiratory: Normal Breath Sounds, No Accessory Muscle Use, No Respiratory Distress Cardiovascular: Regular Rate, Rhythm, Normal Peripheral Pulses Peripheral Pulses: 2+ Carotid (R), 2+ Carotid (L), 2+ Dorsalis Pedis (R), 2+ Left Dors-Pedis (L), 2+ Radial Pulses (R), 2+ Radial Pulses (L) Gastrointestinal: soft, tenderness (rlq tenderness to deep palpation minimal, drain rlq), other (drain with scant green drainage) Extremity: Pedal Edema (trace) Neurologic/Psychiatric: Alert, Oriented x3, Normal Mood/Affect Skin: Normal Color, Warm/Dry Lymphatic: No Adenopathy Results Lab Microbiology 12/09/22 Gram Stain - Final, Complete 12/09/22 Surgical Culture - Final, Complete Strep constellatus See Comments No Further Testing Assessment/Plan Assessment/Plan Assessment/Plan Complicated diverticulitis with sealed perforation, intrabdominal abscess Abd pain Afib Leukocytosis S/P IR drain placement Abd pain improved. 12/08 CT showed enlarged abscess containing a perforation. S/p IR drain- has been draining from RLQ (25 mL green fluid over 24 hrs with 3 10 mL flushes) Repeat cbc today Continue ambulating Continue heparin IV drip Metronidazole and cipro- convert to augmentin On low residual diet. Tolerating Slowly improving, home soon BRAYDEN WISDOM DO 12/14/22 1205: Subjective Time Seen by a Provider: 11:07 Subjective/Events-last exam Pt seen and examined, sitting in chair and sleeping. He was easily arousable, stated he was eating fine and pain controlled with oral meds. He would like to go home. Nurse did not think there was anything we were doing for him that he couldn't do at home himself. Review of Systems General: No Chills, No Night Sweats Pulmonary: No Dyspnea, No Cough Cardiovascular: No: Chest Pain, Palpitations Gastrointestinal: Abdominal Pain, Diarrhea; No: Nausea, Vomiting Musculoskeletal: back pain Objective Exam General Appearance: No Apparent Distress, Obese HEENT: PERRL/EOMI Respiratory: Lungs Clear, Normal Breath Sounds, No Accessory Muscle Use, No Respiratory Distress Cardiovascular: Regular Rate, Rhythm, Normal Peripheral Pulses Gastrointestinal: soft, tenderness (rlq tenderness to deep palpation minimal, drain rlq), other (drain with scant green drainage) Extremity: Pedal Edema (trace) Neurologic/Psychiatric: Alert, Oriented x3, Normal Mood/Affect Skin: Normal Color, Warm/Dry Assessment/Plan Assessment/Plan Assessment/Plan Complicated diverticulitis with sealed perforation, intrabdominal abscess Abd pain Afib Leukocytosis S/P IR drain placement Abd pain controlled with oral meds; S/p IR drain- has been draining from RLQ (25 mL green fluid over 24 hrs with 3 10 mL flushes) - will leave in place and continue to monitor at home Encourage ambulation and IS use, tolerating diet. Metronidazole and cipro- convert to augmentin. Will D/C IV and D/C home Supervisory-Addendum Brief Verification & Attestation Participated in pt care: history, MDM, physical Personally performed: exam, history, MDM, supervision of care Care discussed with: Medical Student Procedures: n/a Verification and Attestation of Medical Student E/M Service A medical student performed and documented this service. I then reviewed and verified all information documented by the medical student and made mine fications to such information, when appropriate. I personally performed a physical exam, medical decision making and then discussed any differences between the notes and made revisions as necessary to create one note. Brayden Wisdom , 12/14/22 , 12:05 HAMZAH MCCARTHY Dec 14, 2022 07:22 BRAYDEN WISDOM DO Dec 14, 2022 12:05
[2022-12-14 07:56] VITALS: BP 141/65
[2022-12-14] MEDS: COLCHICINE 0.6 MG TABLET PO SCH (08:43)
[2022-12-14] MEDS: DRONEDARONE 400 MG TABLET PO SCH (08:43)
[2022-12-14] MEDS: NIFEdipine Extended Release 30 MG TABLET PO SCH (08:43)
[2022-12-14] MEDS: AMOXICILLIN/Clavulanate 875 MG TABLET PO SCH (08:43)
[2022-12-14] MEDS: PANTOPRAZOLE 40 MG TABLET PO SCH (08:43)
--- NOTE | 2022-12-14 08:43 | Cardiology Progress Note ---
Subjective Date Seen by Provider: Dec 14, 2022 Time Seen by Provider: 08:25 Subjective/Events-last exam Patient in chair, no new complaints. Denies any chest pain Objective-Cardiology Exam Last Set of Vital Signs Vital Signs 12/13/22 12/14/22 23:39 07:56 Temp 36.3 Pulse 66 Resp 20 B/P (MAP) 141/65 (90) Pulse Ox 92 O2 Delivery Room Air O2 Flow Rate 0.00 0.00 I&O Intake and Output 12/14/22 00:00 Intake Total 4470 ml Output Total 20 ml Balance 4450 ml Intake Oral 2170 ml IV Total 2300 ml Drainage Total 20 ml # Voids 16 # Bowel Movements 4 General: Alert, Oriented X3 HEENT: Atraumatic, PERRLA Neck: Supple Lungs: Clear to Auscultation, Normal Air Movement Heart: Regular Rate, Normal S1, Normal S2 Abdomen: Normal Bowel Sounds, Soft Extremities: No Edema Skin: No Rashes, No Significant Lesion Neuro: Normal Speech Psych/Mental Status: Mental Status NL, Mood NL A/P-Cardiology Admission Diagnosis Perforated sigmoid diverticulitis PAF HTN HLP Assessment/Plan Perforated sigmoid diverticulitis, management per surgeon and medical services. Coronary artery disease, underwent LHC on Dec 10, 2020 with severe stenosis in the distal LAD with successful primary stenting using 2.5 x 23 Rochelle stent expanded to 2.7 mm. Severe stenosis at the first diagonal artery, fairly small and tortuous artery, balloon angioplasty was done to the proximal artery, there is significant recoiling, the artery is 2 mm in diameter at max, cannot support a stent. Otherwise mild disease in the circumflex artery and right coronary artery. Paroxysmal atrial fibrillation, underwent ROMANA with electrical cardioversion, currently in sinus rhythm, maintained on Multaq 400 mg twice daily as outpatient. Review of the Zio patch on May 24, 2022 showed multiple short paroxysmal atrial tachycardia, wide complex tachycardia, possible 5 beats nonsustained ventricular tachycardia vs afib with abberant conduction. Asymptomatic Started on Toprol XL 25mg daily, medication was discontinued d/t bradycardia and fatigue. Patient was referred to Dr. Bellamy, underwent ablation last month. Multaq restarted Xarelto restarted [id number] score of 2, yearly risk of stroke without oral anticoagulation is 2.2%, maintained on Xarelto, currently on hold Chest pain, atypical, reporting improvement. Hypertension, controlled on current medication, monitor blood pressure Hyperlipidemia, maintained on statin Hypokalemia, replace and continue to monitor. Family history of atrial fibrillation and flutter, had brother who had ablation. Mild bilateral carotid stenosis, ultrasound was done in February 2022. Continue to monitor Supervisory-Addendum Brief Supervisory Addendum Participated in pt care: history, MDM, physical Personally performed: exam, history, MDM Care discussed with: APOLLO Results interpretation: Verified all documentation Notes: Patient was seen and evaluated with Laura, examination performed, management plan was discussed, agree with the current scribed note, I made few changes to the note using Italic font Patient was seen at bedside, still having a drain but very minimal discharge Restarted on Xarelto, continue to monitor Monitor heart rate and blood pressure LAURA VALLADARES Dec 14, 2022 08:43 ANMOL LIU MD Dec 14, 2022 09:04
[2022-12-14] MEDS: HYDROcodone/ACETAMINOPHEN 5 MG/325 MG TABLET PO PRN (08:48)
[2022-12-14] MEDS: 1/2 NS + KCL 20 MEQ/L 1,000 ML 1,000 ML IV SCH (08:50)
[2022-12-14 11:41] VITALS: BP 127/72
[2022-12-14] MEDS ORDERED: AMOX1TAB12 PO (12:07)
[2022-12-14] MEDS ORDERED: ACHD5005 PO (12:07)
--- NOTE | 2022-12-14 12:09 | Discharge Inst-Surgical ---
Discharge Inst-Surgical Depart Medication/Instructions New, Converted or Re-Newed RX: Transmitted to Pharmacy Patient Instructions Follow up Appt: Make appointment for 1 week. [phone] Instructions: No lifting greater than 20 pounds. No strenuous activity. May shower in 24 hours, no tub bath or soaking. Use incentive spirometer at home as directed. No Smoking Skin/Wound Care: Monitor drainage ouput and call if it increases. Symptoms to Report: Appetite Changes, Extremity Discoloration, Numbness/Tingling, Swelling Increased, Bleeding Excessive, Eyesight Changes, Pain Increased, Urine Color Change, Constipation(Persistent), Fever over 101 degree F, Pain/Pressure in chest, Urinating Difficulty, Cough Up/Vomit Blood, Heart Beat Irreg/Pounding, Pain/Pressure in jaw, Cramps in feet or legs, Lightheadedness, Pain/Pressure in shoulder, Diarrhea(Persistent), Memory Changes Suddenly, Questions/Concerns, Weight gain consecutive days, Dizziness/Fainting, Nausea/Vomiting, Shortness of Breath, Weight gain over 2 pounds If questions or concerns contact your physician Or seek help at emergency department. Activity Activity as Tolerated: Yes Driving Instructions: No Driving/Refer to Dr. Turner Discharge Diet: Low Residue Diet After 24 Hours: Clear Liquid if Nauseous If Any Problems/Questions/Issu: Contact Your Physician, Go to Emergency Room Skin/Wound Care Infection Signs and Symptoms: Increased Drainage, Skin Itchy or Has a Rash, Increased Swelling, Temperature Above 101 F Bathing Instructions: ANTNO Ruiz DO Dec 14, 2022 12:09
[2022-12-14 13:30] VITALS: BP 127/72
== END 2022-12-14 13:30 | disposition home or self-care (01) | DRG 392 ==
LOC: EDUNIT# 12:05 → ER 12:06 → 4TH 19:19
PROVIDERS: ADMIT Family Medicine; ATTEND Surgery
PROC: 0W9G30Z Drainage of Peritoneal Cavity with Drainage Device, Percutaneous Approach (ICD-10-PCS; principal; 2022-12-09)
DX: K57.20 Diverticulitis of large intestine with perforation and abscess without bleeding (principal); I48.19 Other persistent atrial fibrillation; Z79.01 Long term (current) use of anticoagulants; I10 Essential (primary) hypertension; J44.9 Chronic obstructive pulmonary disease, unspecified; I25.10 Atherosclerotic heart disease of native coronary artery without angina pectoris; Z95.5 Presence of coronary angioplasty implant and graft; E78.00 Pure hypercholesterolemia, unspecified; E87.6 Hypokalemia; I65.23 Occlusion and stenosis of bilateral carotid arteries; H54.7 Unspecified visual loss; F41.9 Anxiety disorder, unspecified; Z88.5 Allergy status to narcotic agent; Z88.2 Allergy status to sulfonamides; Z85.828 Personal history of other malignant neoplasm of skin; Z79.82 Long term (current) use of aspirin; Z79.899 Other long term (current) drug therapy
CPT/HCPCS: 36415; 74018; 74177; 77012; 80048; 80053; 81000; 82947; 83735; 85007; 85025; 85027; 85049; 85610; 85730; 87070; 87077; 87205; 93005; 93306; 94664; 94760; 96361; 96365; 96366; 96367; 96368; 99156

== ENCOUNTER → 2023-01-11 | Outpatient (CLI) | payer BC ==
[~2023-01-11] MED LIST changes: +ACHD5005 PO; +AMOX1TAB12 PO; +COLC0.6T59 PO; +IBUP-2473 PO; +IRBE1TAB41 PO; +PANT40TA52 PO; +RIVA20TA PO; +ROSU40TA23 PO; +SERT-412 PO; +SUCR1TAB PO
[2023-01-11 09:32] LABS: HEMATOCRIT 41 % (40-54); HEMOGLOBIN 13.5 g/dL (13.3-17.7); MEAN CORPUSCULAR HEMOGLOBIN 31 pg (25-34); MEAN CORPUSCULAR HGB CONC 33 g/dL (32-36); MEAN CORPUSCULAR VOLUME 95 fL (80-99); MEAN PLATELET VOLUME 9.4 fL (9.0-12.2); PLATELET COUNT 265 10^3/uL (130-400); WHITE BLOOD COUNT 8.6 10^3/uL (4.3-11.0)
[2023-01-11 09:52] LABS: ALBUMIN 4.3 GM/DL (3.2-4.5); BILIRUBIN,TOTAL 0.6 MG/DL (0.1-1.0); CREATININE SERUM 1.08 MG/DL (0.60-1.30); POTASSIUM 4.3 MMOL/L (3.6-5.0); TOTAL PROTEIN 7.3 GM/DL (6.4-8.2)
== END ==
LOC: LAB 09:22
PROVIDERS: ATTEND Surgery
DX: R11.2 Nausea with vomiting, unspecified (principal)
CPT/HCPCS: 36415; 80053; 85027

== ENCOUNTER → 2023-01-19 | Outpatient (CLI) | payer BC | LOC: LAB 13:41 | PROVIDERS: ATTEND Surgery | DX: R19.7 Diarrhea, unspecified (principal) | CPT/HCPCS: 87324; 87449 ==

== ENCOUNTER → 2023-01-19 | Outpatient (CLI) | payer BC ==
[~2023-01-19] MED LIST changes: +IOHEXOL 350 MG/ML 100 ML (OMNIPAQUE 350) VIAL IV ONE; +NS 100 ML (IVPB) BAG IV ONE
--- NOTE | 2023-01-19 12:18 | Diagnostic Imaging Report ---
PROCEDURE: CT abdomen and pelvis with contrast. TECHNIQUE: Multiple contiguous axial images were obtained through the abdomen and pelvis after administration of intravenous contrast. Auto Exposure Controls were utilized during the CT exam to meet ALARA standards for radiation dose reduction. All CT scans use one or more of the following dose optimizing techniques: automated exposure control, MA and/or KvP adjustment based on patient size and exam type or iterative reconstruction. INDICATION: Recent abdominal abscess status post percutaneous drain placement. This study is performed for followup. COMPARISON: Correlation is made with prior imaging from 12/09/2022 and 12/08/2022. FINDINGS: The previously noted trace bilateral pleural effusions have resolved. The lung bases are clear. The liver and gallbladder are unremarkable. There is no biliary ductal dilatation. The pancreas and spleen are unremarkable. No adrenal mass is identified. The kidneys are unremarkable. There is no hydronephrosis. The aorta is calcified but nonaneurysmal. The previously noted large fluid collection in the right lower quadrant has completely resolved. There is some minimal residual gas noted at the area of previously noted fluid collection with some minimal surrounding soft tissue density and inflammation. This area measures approximately 2.5 x 1.6 cm. There is no residual fluid present. Findings could represent a residual fistula, perhaps between the sigmoid colon and a small bowel loop in the right lower quadrant. The sigmoid does remain thick walled and shows numerous diverticula. There is no bowel obstruction. No free fluid is identified. The bladder is decompressed. The prostate is enlarged. The previously noted percutaneous drain has been removed. IMPRESSION: 1. Resolution of the previously noted small bilateral pleural effusions and bibasilar atelectasis. 2. Resolution of the previously noted large right lower quadrant abscess with removal of the percutaneous drain. There is some residual soft tissue as well as extraluminal gas in the right lower quadrant near the previous abscess site. A coloenteric fistula cannot be entirely excluded. There is some residual inflammation and wall thickening of the sigmoid colon. No bowel obstruction or new abscess formation is identified. Dictated by: Dictated on workstation # [id number]
== END ==
LOC: RAD 10:59
PROVIDERS: ATTEND Nurse Practitioner
DX: K52.9 Noninfective gastroenteritis and colitis, unspecified (principal)
CPT/HCPCS: 74177